=== PATIENT | female | born 1945 | race Hispanic/Latino ===

== ENCOUNTER → 2018-01-27 | Outpatient (CLI) | payer MEDICARE ==
[~2018-01-27] MED LIST: AMLODIPINE BESYL5 MG PO; FERROUS SULFAT325 MG PO; GLIPIZIDE ER5 MG PO; LASIX40 MG PO; SODIUM BICARBO650 MG PO
--- NOTE | 2018-01-27 15:34 | Diagnostic Imaging Report ---
PROCEDURE: CT CHEST WITHOUT CONTRAST CT scan of the chest WITHOUT intravenous contrast, using standard protocol. TECHNIQUE: The chest was scanned utilizing a multidetector helical scanner from the apex to the level of the adrenal glands. No IV contrast was administered per physician's request. Coronal and sagittal multiplanar reformations were obtained. COMPARISON: [facility], DX, CHEST SINGLE (PORTABLE), 01/09/2016, 21:19. INDICATIONS: PULMONARY NODULE FINDINGS: Lines/tubes: Right IJ dialysis catheter with distal tip in the right atrium. Lungs and Airways: Focal areas of subpleural reticulation and mild coarsening of the interstitium/focal ground glass opacities in bilateral upper lobes (for example, series 3, images 29, 27, 45), with mild traction bronchiectasis in the right upper lobe (for example series 3, image 45). Similar findings are noted in the posterior lower lobes bilaterally, right greater than left (for example, series 3, images 68 and 55). 0.8 x 0.5 x 0.7 cm solid noncalcified nodule in the right middle lobe (series 3, image 53 and sagittal image 31). No other pulmonary nodules. No masses or consolidation. Airways are clear, without endobronchial lesions. Pleura: No effusion, or pneumothorax. Heart and mediastinum: Thyroid is unremarkable. Heart size is normal. Trace pericardial fluid. Extensive atherosclerotic calcification of the coronary arteries and to a lesser degree thoracic aorta and aortic valve. The aorta is non-aneurysmal. The main pulmonary artery measures 3.0 cm. Lymph nodes: No mediastinal, hilar or axillary adenopathy. Mildly prominent right lower paratracheal lymph node (series 2, image 41 and coronal image 49), with internal punctate hyperdensity, likely representing partial calcification. Abdomen: Limited views of the upper abdomen show no abnormality within the visualized liver, spleen, pancreas, or kidneys. The adrenal glands are unremarkable. Atherosclerotic calcification of the aorta and aortic branches. Bones: No aggressive lytic lesion. Multilevel degenerative disc changes in the thoracic spine. Soft tissues are unremarkable. IMPRESSION: 1. 0.8 cm solid noncalcified nodule in the right middle lobe. Recommend followup noncontrast low dose nodule CT chest in 3 months to document stability, per Fleischner Society 2017 guidelines. 2. Findings in bilateral lungs likely represent mild fibrotic changes. Tommy Pratt M.D. Dictated by: Tommy Pratt M.D. on 01/27/2018 at 15:38 Electronically approved by: Tommy Pratt M.D. on 01/27/2018 at 15:38
== END ==
LOC: CT 11:16
PROVIDERS: ATTEND Family Medicine
DX: R91.1 Solitary pulmonary nodule (principal)
CPT/HCPCS: 71250

== ENCOUNTER → 2018-05-05 | Outpatient (CLI) | payer MEDICARE ==
[~2018-05-05] MED LIST changes: +METOPROLOL TART25 MG PO
--- NOTE | 2018-05-05 09:38 | Diagnostic Imaging Report ---
PROCEDURE: CT CHEST WITHOUT CONTRAST CT scan of the chest WITHOUT intravenous contrast, using standard protocol. TECHNIQUE: The chest was scanned utilizing a multidetector helical scanner from the apex to the level of the adrenal glands. No IV contrast was administered per protocol. Coronal and sagittal multiplanar reformations were obtained. COMPARISON: CT Chest 01/27/2018. INDICATIONS: nodule FINDINGS: Lines/tubes: Right IJ dialysis catheter with distal tip in the right atrium. Lungs and Airways: Focal areas of subpleural reticulation and mild coarsening of the interstitium/focal ground glass opacities in bilateral upper lobes and lower lobes are again noted. There is a 0.8 x 0.6 x 0.8 cm (AP x TV x SI) nodule in the right middle lobe, unchanged in size by my measurement. No new or enlarging pulmonary nodules. No masses or consolidation. The central airways are patent. Pleura: No effusion, or pneumothorax. Heart and mediastinum: Thyroid is unremarkable. Heart size is normal. Extensive atherosclerotic calcification of the coronary arteries and aorta. Mitral annular calcifications. Lymph nodes: No mediastinal, hilar or axillary adenopathy. Mildly prominent right lower paratracheal lymph node, with internal punctate hyperdensity, likely representing partial calcification. Abdomen: Limited views of the upper abdomen show no abnormality within the visualized liver, spleen, pancreas, or kidneys. The adrenal glands are unremarkable. Atherosclerotic calcification of the aorta and aortic branches. Bones: No acute bony findings. Multilevel degenerative disc changes in the thoracic spine. IMPRESSION: Stable appearance of 8 mm solid noncalcified nodule in the right middle lobe. Recommend follow-up noncontrast low dose nodule CT chest in 6 months to assess for stability. Findings in bilateral lungs likely represent mild fibrotic changes. Dictated by: ELIZABETH GRANT M.D. on 05/05/2018 at 9:47 Electronically approved by: ELIZABETH GRANT M.D. on 05/05/2018 at 9:47
== END ==
LOC: CT 08:29
PROVIDERS: ATTEND Internal Medicine
DX: R91.1 Solitary pulmonary nodule (principal)
CPT/HCPCS: 71250

== ENCOUNTER → 2018-05-19 | Day surgery (SDC) | payer MEDICARE ==
[2018-05-11 11:56] LABS: BASOPHILS % 0.5 % (0.0-1.0); EOSINOPHILS # (AUTO) 0.2 (0.0-0.4); EOSINOPHILS % 1.8 % (0.0-6.0); HEMATOCRIT 35.7 % (34.2-44.1); HEMOGLOBIN 11.5 g/dL (12.0-16.0); LYMPHOCYTES # (AUTO) 1.4 (1.0-3.2); LYMPHOCYTES % 16.7 % (18.0-39.1); MEAN CORPUSCULAR HGB CONC 32.2 g/dL (31-35); MEAN CORPUSCULAR VOLUME 96.2 fL (81-99); MONOCYTES # (AUTO) 0.4 (0.2-0.8); MONOCYTES % 4.3 % (4.4-11.3); NEUTROPHILS # (AUTO) 6.3 (2.1-6.9); NEUTROPHILS % 76.3 % (38.7-80.0); RED BLOOD COUNT 3.71 x10e6/uL (3.6-5.1); RED CELL DISTRIBUTION WIDTH 14.4 % (11.7-14.4)
[2018-05-11 12:02] LABS: PLATELET COUNT 44 x10e3/uL (140-360)
[2018-05-11 12:06] LABS: ANION GAP 12.1 mmol/L (8-16); CALCIUM 8.9 mg/dL (8.4-10.2); CREATININE, SERUM 2.38 mg/dL (0.57-1.11); POTASSIUM 3.1 mmol/L (3.5-5.1)
[~2018-05-19] MED LIST changes: +CHONDR SU A NA/HYALUR SOD 1 EACH KIT IO ONE; +CYCLOPENTOLATE HCL 2% OPTH SOLN 2 ML BTL OP ONE; +EPINEPHRINE HCL INJ 1 MG/ML AMP ONE; +FAMOTIDINE 20 MG/2 ML VIAL IV ONE; +FENTANYL CITRATE/PF 100MCG/2 ML INJ ONE; +GATIFLOXACIN(OPTH) 5 ML LIQD ONE; +LIDOCAINE 2% /EPINEPHRINE 20 ML SDV INJ ONE; +LIDOCAINE HCL-PF 4% 40 MG/1 ML 5ML AMP ONE; +PHENYLEPHRINE HCL 2 ML DROPS ONE; +PILOCARPINE HCL(OPTH) 15 ML LIQD ONE; +POVIDONE IODINE 5% (OPTH) 30 ML BTL ONE; +PROPOFOL IV EMULSION 10 MG/ML 20 ML VIAL ONE; +SODIUM CHLORIDE 0.9% 250ML 250 ML ONE; +TOBRAMYCIN/DEXAMETHASONE(OPTH) 3.5 GM TUBE ONE
--- OUTSIDE RECORDS SUMMARY | 2018-05-19 05:45 | XMS REPORT ---
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 Allergies, Adverse Reactions, Alerts Allergy Name Allergy Type Status Severity Reaction(s) Onset Date Inactive Date Treating Clinician Comments Penicillins DA Active SV 2017-11-01 00:00:00 Medications This patient has no known medications. Results Test Description Test Time Test Comments Text Results Atomic Results Result Comments CT CHEST WO 2018-05-05 09:47:00 [place] [address] Patient Name: JUAN MANRIQUEZ MR #: [id number] : 1945 Age/Sex: 73/F Req #: [id number] Adm Physician: Ordered by: FRANCHESKA HSETER MD Report #: [id number] Location: CT Room/Bed: Procedure: [id number] CT/CT CHEST WO Exam Date: 05/05/18 Exam Time: 0850 REPORT STATUS: Signed PROCEDURE: CT CHEST WITHOUT CONTRAST CT scan of the chest WITHOUT intravenous contrast, using standard protocol. TECHNIQUE: The chest was scanned utilizing a multidetector helical scanner from the apex to the level of the adrenal glands. No IV contrast was administered per protocol. Coronal and sagittal multiplanar reformations were obtained. COMPARISON: CT Chest 01/27/2018. INDICATIONS: nodule FINDINGS: Lines/tubes: Right IJ dialysis catheter with distal tip in the right atrium. Lungs and Airways: Focal areas of subpleural reticulation and mild coarsening of the interstitium/focal ground glass opacities in bilateral upper lobes and lower lobes are again noted. There is a 0.8 x 0.6 x 0.8 cm (AP x TV x SI) nodule in the right middle lobe, unchanged in size by my measurement. No new or enlarging pulmonary nodules. No masses or consolidation. The central airways are patent. Pleura: No effusion, or pneumothorax. Heart and mediastinum: Thyroid is unremarkable. Heart size is normal. Extensive atherosclerotic calcification of the coronary arteries and aorta. Mitral annular calcifications. Lymph nodes: No mediastinal, hilar or axillary adenopathy. Mildly prominent right lower paratracheal lymph node, with internal punctate hyperdensity, likely representing partial calcification. Abdomen: Limited views of the upper abdomen show no abnormality within the visualized liver, spleen, pancreas, or kidneys. The adrenal glands are unremarkable. Atherosclerotic calcification of the aorta and aortic branches. Bones: No acute bony findings. Multilevel degenerative disc changes in the thoracic spine. IMPRESSION: Stable appearance of 8 mm solid noncalcified nodule in the right middle lobe. Recommend follow-up noncontrast low dose nodule CT chest in 6 months to assess for stability. Findings in bilateral lungs likely represent mild fibrotic changes. Dictated by: ELIZABETH GRANT M.D. on 05/05/2018 at 9:47 Electronically approved by: ELIZABETH GRANT M.D. on 05/05/2018 at 9:47 Dictated By: ELIZABETH GRANT MD 6 Transcribed By: LISS on 05/05/18946 COPY TO: FRANCHESKA HESTER MD CT CHEST WO 2018-01-27 15:38:00 [facility] [address], [place] [address] Patient Name: JUAN MANRIQUEZ MR #: [id number] : 1945 Age/Sex: 72/F Req #: [id number] Adm Physician: Ordered by: LEONA COLINDRES MD Report #: [id number] Location: CT Room/Bed: Procedure: [id number] CT/CT CHEST WO Exam Date: 01/27/18 Exam Time: 1150 REPORT STATUS: Signed PROCEDURE: CT CHEST WITHOUT CONTRAST CT scan of the chest WITHOUT intravenous contrast, using standard protocol. TECHNIQUE: The chest was scanned utilizing a multidetector helical scanner from the apex to the level of the adrenal glands. No IV contrast was administered per physician's request. Coronal and sagittal multiplanar reformations were obtained. COMPARISON: [facility], , CHEST SINGLE (PORTABLE), 01/09/2016, 21:19. INDICATIONS: PULMONARY NODULE FINDINGS: Lines/tubes: Right IJ dialysis catheter with distal tip in the right atrium. Lungs and Airways: Focal areas of subpleural reticulation and mild coarsening of the interstitium/focal ground glass opacities in bilateral upper lobes (for example, series 3, images 29, 27, 45), with mild traction bronchiectasis in the right upper lobe (for example series 3, image 45). Similar findings are noted in the posterior lower lobes bilaterally, right greater than left (for example, series 3, images 68 and 55). 0.8 x 0.5 x 0.7 cm solid noncalcified nodule in the right middle lobe (series 3, image 53 and sagittal image 31). No other pulmonary nodules. No masses or consolidation. Airways are clear, without endobronchial lesions. Pleura: No effusion, or pneumothorax. Heart and mediastinum: Thyroid is unremarkable. Heart size is normal. Trace pericardial fluid. Extensive atherosclerotic calcification of the coronary arteries and to a lesser degree thoracic aorta and aortic valve. The aorta is non-aneurysmal. The main pulmonary artery measures 3.0 cm. Lymph nodes: No mediastinal, hilar or axillary adenopathy. Mildly prominent right lower paratracheal lymph node (series 2, image 41 and coronal image 49), with internal punctate hyperdensity, likely representing partial calcification. Abdomen: Limited views of the upper abdomen show no abnormality within the visualized liver, spleen, pancreas, or kidneys. The adrenal glands are unremarkable. Atherosclerotic calcification of the aorta and aortic branches. Bones: No aggressive lytic lesion. Multilevel degenerative disc changes in the thoracic spine. Soft tissues are unremarkable. IMPRESSION: 1. 0.8 cm solid noncalcified nodule in the right middle lobe. Recommend followup noncontrast low dose nodule CT chest in 3 months to document stability, per Fleischner Society 2017 guidelines. 2. Findings in bilateral lungs likely represent mild fibrotic changes. Erica Pratt M.D. Dictated by: Erica Pratt M.D. on 01/27/2018 at 15:38 Electronically approved by: Erica Pratt M.D. on 01/27/2018 at 15:38 Dictated By: ERICA PRATT MD [id number] Transcribed By: LISS on 01/27/18 1538 COPY TO: LEONA COLINDRES MD
[2018-05-19 08:36] LABS: INR 0.94; PROTHROMBIN TIME 13.4 seconds (11.9-14.5)
[2018-05-19 08:38] LABS: PARTIAL THROMBOPLASTIN TIME 30.5 seconds (23.8-35.5)
[2018-05-19 09:50] VITALS: BP 145/65
== END | disposition home or self-care (01) ==
LOC: OR 05:40
PROVIDERS: ATTEND Ophthalmology
DX: H25.12 Age-related nuclear cataract, left eye (principal); E11.22 Type 2 diabetes mellitus with diabetic chronic kidney disease; I13.2 Hypertensive heart and chronic kidney disease with heart failure and with stage 5 chronic kidney disease, or end stage renal disease; N18.6 End stage renal disease; I50.32 Chronic diastolic (congestive) heart failure; Z99.2 Dependence on renal dialysis; I48.91 Unspecified atrial fibrillation; I45.10 Unspecified right bundle-branch block; R07.2 Precordial pain; Z01.810 Encounter for preprocedural cardiovascular examination; Z01.812 Encounter for preprocedural laboratory examination; Z98.41 Cataract extraction status, right eye; Z96.1 Presence of intraocular lens; Z88.0 Allergy status to penicillin
CPT/HCPCS: 36415 ×2; 66984; 80048; 82948; 84132; 85025; 85610; 85730; 93005; J0171; J2001; J2704; J7050; V2632

== ENCOUNTER → 2018-08-01 | Outpatient (CLI) | payer MEDICARE ==
[~2018-08-01] MED LIST changes: -CHONDR SU A NA/HYALUR SOD 1 EACH KIT IO ONE; -CYCLOPENTOLATE HCL 2% OPTH SOLN 2 ML BTL OP ONE; -EPINEPHRINE HCL INJ 1 MG/ML AMP ONE; -FAMOTIDINE 20 MG/2 ML VIAL IV ONE; -FENTANYL CITRATE/PF 100MCG/2 ML INJ ONE; -GATIFLOXACIN(OPTH) 5 ML LIQD ONE; -LIDOCAINE 2% /EPINEPHRINE 20 ML SDV INJ ONE; -LIDOCAINE HCL-PF 4% 40 MG/1 ML 5ML AMP ONE; -PHENYLEPHRINE HCL 2 ML DROPS ONE; -PILOCARPINE HCL(OPTH) 15 ML LIQD ONE; -POVIDONE IODINE 5% (OPTH) 30 ML BTL ONE; -PROPOFOL IV EMULSION 10 MG/ML 20 ML VIAL ONE; -SODIUM CHLORIDE 0.9% 250ML 250 ML ONE; -TOBRAMYCIN/DEXAMETHASONE(OPTH) 3.5 GM TUBE ONE
--- NOTE | 2018-08-01 17:42 | Diagnostic Imaging Report ---
Exam: Paranasal sinuses, 3 views. History: Acute maxillary sinusitis Comparison: None. Findings: There is normal bone mineralization. Hypoplastic frontal sinuses. Maxillary, sphenoid and ethmoid sinuses are aerated. No acute, displaced fracture or dislocation. Impacted molars. Impression: 1. Hypoplastic frontal sinuses. Other sinuses are aerated. Maxillofacial CT is recommended if there is clinical concern for sinusitis. Signed by: Dr. Tommy Pratt M.D. on 08/01/2018 5:39 PM
== END ==
LOC: RAD 15:50
PROVIDERS: ATTEND Family Medicine
DX: J01.00 Acute maxillary sinusitis, unspecified (principal)
CPT/HCPCS: 70220

== ENCOUNTER → 2019-05-15 | Outpatient (CLI) | payer MEDICARE ==
[~2019-05-15] MED LIST changes: +ASPIRIN81 MG; +CLONIDINE1 EAC1
--- NOTE | 2019-05-15 12:47 | Diagnostic Imaging Report ---
CT THORACIC SPINE WO HISTORY: Thoracic spine pain COMPARISON: Chest radiographs 11/18/2018 TECHNIQUE: Axial CT images of the thoracic spine were obtained without intravenous contrast. Coronal/sagittal reformations were created. One or more of the following dose reduction techniques were used: Automated exposure control, adjustment of the mA and/or kV according to patient size, and/or utilization of iterative reconstruction technique. FINDINGS: Mild bone demineralization limits evaluation. Thoracic kyphosis is preserved. There is no significant scoliosis or subluxation. Multilevel spondylotic changes are advanced at T7-T8. Mild endplate erosion and sclerosis are seen at T7-T8. Minimal grade 1 anterolisthesis of T7 on T8 is present. There is no associated paravertebral fat stranding/soft tissue density at T7-T8. Otherwise, no definite acute fracture or compression deformity is seen. No gross spinal canal mass is seen. The paravertebral and paraspinal soft tissues are unremarkable. There is no gross canal or foraminal stenosis. Right IJ dual-lumen central line terminates near the right atrium. Diffuse atherosclerotic calcifications are present. The left atrium is enlarged. Diffuse groundglass pulmonary opacities may be due to pulmonary edema. Associated small bilateral pleural effusions are seen, right greater than left IMPRESSION: 1. Nonspecific advanced spondylotic changes at T7-T8 with mild endplate erosion and sclerosis. Early osteomyelitis-discitis could have this appearance. 2. Otherwise, no acute osseous abnormalities. 3. Underlying multilevel spondylosis without gross canal or foraminal stenosis. Signed by: Dr. Thomas Smith M.D. on 05/15/2019 12:44 PM
== END ==
LOC: CT 11:04
PROVIDERS: ATTEND Family Medicine
DX: M54.6 Pain in thoracic spine (principal)
CPT/HCPCS: 72128

== ENCOUNTER 2020-04-22 11:03 | Observation (INO) | payer MEDICARE ==
[~2020-04-22] VITALS: Ht 162.6 cm; Wt 58.5 kg
[2020-04-22] MEDS ORDERED: ASPIRIN 81 MG CHEW TAB PO ONE ×2 (11:30→13:30)
--- NOTE | 2020-04-22 11:40 | Diagnostic Imaging Report ---
EXAMINATION: CHEST SINGLE (PORTABLE) INDICATION: Chest pain. COMPARISON: Chest radiograph 02/07/2020. FINDINGS: TUBES and LINES: Right IJ tunneled hemodialysis catheter terminates in the right atrium. LUNGS: Lungs are moderately inflated. Mild bilateral perihilar and interstitial opacities. No evidence of lobar pneumonia. PLEURA: No pleural effusion or pneumothorax. HEART AND MEDIASTINUM: The cardiomediastinal silhouette is mildly enlarged. There are atherosclerotic calcifications within the aorta. BONES AND SOFT TISSUES: No acute osseous abnormality. Diffuse osteopenia. UPPER ABDOMEN: No free air under the diaphragm. IMPRESSION: Bilateral interstitial opacities, likely pulmonary interstitial edema. No evidence of lobar pneumonia. Signed by: Dr. Carline Rodriguez MD on 04/22/2020 11:36 AM
[2020-04-22 11:44] LABS: BASOPHILS # (AUTO) 0.1 (0.0-0.1); BASOPHILS % 1.1 % (0.0-1.0); EOSINOPHILS # (AUTO) 0.2 (0.0-0.4); EOSINOPHILS % 2.7 % (0.0-6.0); HEMATOCRIT 39.1 % (34.2-44.1); HEMOGLOBIN 12.5 g/dL (12.0-16.0); LYMPHOCYTES # (AUTO) 1.1 (1.0-3.2); LYMPHOCYTES % 16.6 % (18.0-39.1); MONOCYTES # (AUTO) 0.3 (0.2-0.8); MONOCYTES % 4.4 % (4.4-11.3); NEUTROPHILS # (AUTO) 4.9 (2.1-6.9); NEUTROPHILS % 74.9 % (38.7-80.0); RED BLOOD COUNT 3.91 x10e6/uL (3.6-5.1); RED CELL DISTRIBUTION WIDTH 15.1 % (11.7-14.4)
--- NOTE | 2020-04-22 11:50 | NUR ---
PT STATES SHE HAS DIALYSIS M/W/F. PT STATES THEY TOOK OFF 2.1L DURING DIALYSIS. PT NOTES THAT WHENEVER HER DIALYSIS TREATMENT TAKES OFF ALOT OF FLUID, SHE DEVELOPS CHEST PAIN.
[2020-04-22 11:53] LABS: PLATELET COUNT 36 x10e3/uL (140-360)
--- NOTE | 2020-04-22 11:53 | NUR ---
Received call from lab with notification that pt's platelets are 35, notified Irais ROY.
--- OUTSIDE RECORDS SUMMARY | 2020-04-22 11:57 | XMS REPORT | Continuity of Care Document ---
Author Author [facility] t Organization [facility] Address [address] [place] [address] Phone Unavailable Care Team Providers Care Window Decorator Name Role Phone MD Tor COLINDRES PCP MARGY SAHNI Attphys Unavailable Tor MOSCOSO Attphys Unavailable Tor COLINDRES Attphys Unavailable BOOKER WALDEN Attphys Unavailable MIRFRANCHESKA MCKINLEY Attphys Unavailable Payers Payer Name Policy Type Policy Number Effective Date Expiration Date Tor pepper [employer] Medicare Complete [id number] 2015 00:00:00 [facility] Problems Condition Name Condition Details Condition Category Status Onset Date Resolution Date Last Treatment Date Treating Clinician Comments Source CHF (congestive heart failure) Problem Active 2016-01-10 00:00:00 [facility] Dxbzq-on-ommtghi renal failure Problem Active 2016-01-10 00:00:00 [facility] Hyperkalemia Problem Active 2016-01-10 00:00:00 [facility] Hyperkalemia Problem Active 2014-09-15 00:00:00 [facility] Anemia Problem Active 2014-09-15 00:00:00 [facility] End-stage renal disease Problem Active 2014-09-15 00:00:00 [facility] Chest wall pain following surgery Problem Active [facility] Allergies, Adverse Reactions, Alerts Allergy Name Allergy Type Status Severity Reaction(s) Onset Date Inacti ve Date Treating Clinician Comments Source Penicillin Allergy to substance Active 2020-02-07 00:00:00 [facility] Penicillins DA Active 2019-09-09 00:00:00 [facility] Penicillins DA Active 2018-11-18 00:00:00 [facility] Penicillins DA Active 2017-11-01 00:00:00 [facility] Social History Social Habit Start Date Stop Date Quantity Comments Source Sex Assigned At 1945 00:00:00 1945 00:00:00 Female [facility] Medications Ordered Medication Name Filled Medication Name Start Date Stop Da te Current Medication? Ordering Clinician Indication Dosage Frequency Signature (SIG) Comments Components Source Amlodipine Besylate Amlodipine Besylate Yes 10 Daily [facility] Aspirin Aspirin Yes [facility] Clonidine Clonidine Yes .1 [facility] Metoprolol Tartrate Metoprolol Tartrate Yes 25 As Needed [facility] Furosemide (Lasix) 40 Mg TABLET Furosemide (Lasix) 40 Mg TABLET 2018-11-21 00:00:00 No 40 As Needed [facility] Sodium Bicarbonate Sodium Bicarbonate 2018-11-21 00:00:00 No 650 Daily [facility] Glipizide (Glipizide Er) 5 Mg TAB.ER.24 Glipizide (Glipizide Er) 5 Mg TAB.ER.24 2018-05-11 00:00:00 No 5 Daily [facility] Ferrous Sulfate Ferrous Sulfate 2017-05-19 00:00:00 No 325 Daily [facility] Sodium Bicarbonate Sodium Bicarbonate 2017-05-19 00:00:00 No 1 Daily [facility] Vital Signs Vital Name Observation Time Observation Value Comments Source Body Temperature 2020-02-07 19:31:00 98.4 [degF] [facility] Weight 2020-02-07 16:08:00 163 [lb_av] [facility] BMI (Body Mass Index) 2020-02-07 16:08:00 28.0 kg/m2 [facility] Procedures Procedure Date / Time Performed Performing Clinician Sourc e Computed tomography of thoracic spine without contrast 2019-04-19 8 00:00:00 [facility] Plan of Care Planned Activity Planned Date Details Comments Source Instructions Chest Pain - Chest Wall [facility] Encounters Start Date/Time End Date/Time Encounter Type Admission Type [facility] Care Department Encounter ID Source 2020-02-07 16:20:00 2020-02-07 19:36:00 Departed Emergency Room GEOVANNA MOSCOSO [facility] [id number] [facility] I [facility] 2019-05-15 11:04:00 2019-05-15 11:04:00 Registered Clinic 3 LEONA COLINDRES [facility] [id number] [facility] Results Test Description Test Time Test Comments Results Result Comments Source CHEST SINGLE (PORTABLE) 2020-04-22 11:33:00 [facility] [address] [place], [place] [address] Patient Name: JUAN MANRIQUEZ MR #: [id number] : 1945 Age/Sex: 75/F Req #: [id number] Adm Physician: Ordered by: MARGY SAHNI MD Report #: [id number] Location: ER Room/Bed: Procedure: [id number] DX/CHEST SINGLE (PORTABLE) Exam Date: 04/22/20 Exam Time: 1120 REPORT STATUS: Signed EXAMINATION: CHEST SINGLE (PORTABLE) INDICATION: Chest pain. COMPARISON: Chest radiograph 02/07/2020. FINDINGS: TUBES and LINES: Right IJ tunneled hemodialysis catheter terminates in the right atrium. LUNGS: Lungs are moderately inflated. Mild bilateral perihilar and interstitial opacities. No evidence of lobar pneumonia. PLEURA: No pleural effusion or pneumothorax. HEART AND MEDIASTINUM: The cardiomediastinal silhouette is mildly enlarged. There are atherosclerotic calcifications within the aorta. BONES AND SOFT TISSUES: No acute osseous abnormality. Diffuse osteopenia. UPPER ABDOMEN: No free air under the diaphragm. IMPRESSION: Bilateral interstitial opacities, likely pulmonary interstitial edema. No evidence of lobar pneumonia. Signed by: Dr. Elizabeth Grant MD on 04/22/2020 11:36 AM Dictated By: ELIZABETH GRANT MD 1136 Transcribed By: AYDE on 04/22/20 1136 COPY TO: MARGY SAHNI MD CHEST SINGLE (PORTABLE) 2020-02-07 17:04:00 [place] [address] Patient Name: JUAN MANRIQUEZ MR #: [id number] : 1945 Age/Sex: 75/F Req #: [id number] Adm Physician: Ordered by: GEOVANNA MOSCOSO DO Report #: [id number] Location: ER Room/Bed: Procedure: [id number] DX/CHEST SINGLE (PORTABLE) Exam Date: 02/07/20 Exam Time: 1650 REPORT STATUS: Signed EXAMINATION: CHEST SINGLE (PORTABLE) INDICATION: Y pain over port insertion site [id number] COMPARISON: 11/18/2018 FINDINGS: TUBES and LINES: Right IJ tunneled hemodialysis catheter terminates over the right l ower heart border. A new 3.5 cm linear density is seen over the right chest in the region of the right IJ tunneled hemodialysis catheter. This may be external to the patient. LUNGS: Lungs are not well inflated. There is no evidence of pneumonia or pulmonary edema. PLEURA: No pleural effusion or pneumothorax. HEART AND MEDIASTINUM: The cardiomediastinal silhouette is unremarkable. There are atherosclerotic calcifications within the aorta. BONES AND SOFT TISSUES: No acute osseous abnormality. UPPER ABDOMEN: No free air under the diaphragm. IMPRESSION: Right IJ tunneled hemodialysis catheter terminates over the right lower heart border. A new 3.5 cm linear density is seen over the right chest in the region of the right IJ tunneled hemodialysis catheter. This may be external to the patient. Signed by: Dr. Zeke Gould M.D. on 02/07/2020 5:07 PM Dictated By: ZEKE GOULD MD, MD 06 Transcribed By: AYDE on 02/07/201706 COPY TO: GEOVANNA MOSCOSO DO - XR KNEE 3 V 2020-01-30 14:15:00 FAX: Derek Cifuentse MD [phone] [place]: St: REG -- Name: JUAN MANRIQUEZ [facility] [place] : 1945 Age/S: 75/F [address] Unit #: [id number] [facility] [place] [place] [address] Phys: Derek Dias MD Acct: [id number] Dis Date: Status: REG RCR PHONE #: [phone] Exam Date: 01/30/2020 1340 FAX #: Reason: DISTAL FEMUR FX EXAMS: CPT CODE: [id number] XR KNEE 3 V LT 73847 CLINICAL HISTORY: DISTAL FEMUR FX TECHNIQUE: Tunnel and standing AP views of both knees with lateral view of the left knee COMPARISON: None FINDINGS/ IMPRESSION: There is a comminuted fracture of the distal femoral shaft that demonstrates signs of interval healing since the previous examination as evidenced by sclerotic changes in the fracture along with bony callus. The alignment of the bone fragments is unchanged from the previous exam. There is narrowing of the knee joint spaces bilaterally that is more severe on the left side. The soft tissues or on the left knee are swollen and extensive vascular calcifications are present bilaterally. Location: [facility] at 1415 Reported and signed by: Arun Hand MD CC: Derek Dias MD Technologist: Bebe elaine RT(R) Trnscrd Date/Time/By: 01/30/2020 (1414) : By: [email or web address] Orig Print D/T: S: 01/30/2020 (2230) PAGE 1 Signed Report - XR ANKLE 3 + V LT 2020-01-30 14:12:00 FAX: Derek Cifuentes MD [phone] [place]: St: REG -- Name: JUAN MANRIQUEZ [facility] [place] : 1945 Age/S: 75/F [address] Unit #: [id number] [facility] [place] [address] Phys: Derek Dias MD Acct: [id number] Dis Date: Status: REG RCR PHONE #: [phone] Exam Date: 01/30/2020 1338 FAX #: Reason: DISTAL FEMUR FX EXAMS: CPT CODE: [id number] XR ANKLE 3 + V LT [address] CLINICAL HISTORY: DISTAL FEMUR FX TECHNIQUE: AP, oblique, and lateral views of the left ankle COMPARISON: Left ankle radiographs September 09, 2019 FINDINGS/ IMPRESSION: No acute fracture or dislocation. Bony trabecular pattern is unremarkable. No cortical destruction or periosteal reaction. Ankle mortise is appropriately aligned. Small plantar enthesophyte is present. Atherosclerotic calcifications are present in the soft tissues around the ankle. Location: [facility] at 1412 Reported and signed by: Arun Hand MD CC: Derek Dias MD Technologist: Bebe Beasley RT(R) Trnscrd Date/Time/By: 01/30/2020 (1411) : By: [email or web address] Orig Print D/T: S: 01/30/2020 (1) PAGE 1 Signed Report - XR FEMUR MIN 2 VWS LT 2019-12-19 15:48:00 FAX : Derek Cifuentes MD [phone] [place]: St: REG -- Name: JUAN MANRIQUEZ [facility] [place] : 1945 Age/S: 74/F [address] Unit #: [id number] Loc: [place] [address] Phys: Derek Dias MD Acct: [id number] Dis Date: Status: REG RCR PHONE #: [phone] Exam Date: 12/19/2019 1528 FAX #: Reason: PAIN EXAMS: CPT CODE: [id number] XR FEMUR MIN 2 [place] [address] CLINICAL HISTORY: PAIN; left distal femoral fracture TECHNIQUE: AP and lateral views of the left femur COMPARISON: 11/30/19 IMPRESSION: Progressive healing of comminuted distal femur fracture with indistinct fracture planes, increased sclerosis, and bony callus formation. Left proximal femur is intact. Mild degenerative changes of the left hip and knee joints. Atherosclerotic vascular calcification. Lower thigh and knee soft tissue swelling. LOCATION: [facility] at 1548 Reported and signed by: Chio Chavez D.O. CC: Derek Dias MD Technologist: Dinorah Olivo [facility] Date/Time/By: 12/19/2019 (7468) : By: [email or web address] Orig Print D/T: S: 12/19/2019 (0016) PAGE 1 Signed Report - XR FEMUR MIN 2 VWS LT 2019-11-30 12:32:00 FAX : Derek Cifuentes MD [phone] [place]: St: DIS -- Name: JUAN MANRIQUEZON [facility] [place] : 1945 Age/S: 74/F [address] Unit #: [id number] Loc: [place] [address] Phys: Derek Dias MD Acct: [id number] Dis Date: Status: DIS RCR PHONE #: [phone] Exam Date: 11/30/2019 1205 FAX #: Reason: LEFT DISTAL FEMORAL FX EXAMS: CPT CODE: [id number] XR [place]EMUR MIN 2 [place] [address] CLINICAL HISTORY: LEFT DISTAL FEMORAL FX TECHNIQUE: 2 views of the left femur COMPARISON: Left femur radiographs September 26, 2019 FINDINGS/ IMPRESSION: There is a comminuted fracture of the distal femoral shaft with mild posterior and lateral displacement. Alignment of the bone appears grossly similar to the prior examination. However there has been interval development of callus at the fracture site indicating ongoing healing. The visualized tibia and fibula and patella appear to be within normal limits. Location: [facility] at 1232 Reported and signed by: Arun Hand MD CC: Derek Dias MD Technologist: Bebe Beasley RT(R) Trnscrd Date/Time/By: 11/30/2019 (4418) : By: [email or web address] Orig Print D/T: S: 11/30/2019 (0536) PAGE 1 Signed Report - XR FEMUR MIN 2 VWS LT 2019-09-26 14:22:00 FAX : Derek Cifuentes MD [phone] [place]: St: REG -- Name: JUAN MANRIQUEZ [facility] [place] : 1945 Age/S: 74/F [address] Unit #: [id number] Loc: [place] [address] Phys: Derek Dias MD Acct: [id number] Dis Date: Status: REG RCR PHONE #: [phone] Exam Date: 09/26/2019 1335 FAX #: Reason: pain EXAMS: CPT CODE: [id number] XR FEMUR MIN [address] [place] [address] CLINICAL HISTORY: pain TECHNIQUE: 2 views of the left femur COMPARISON: None FINDINGS/ IMPRESSION: Comminuted fracture of the distal femoral shaft with extension into the femoral condyles and the knee joint space is grossly unchanged in alignment from the prior exam. Extensive vascular calcifications are seen in the left thigh. Location: [facility] at 1422 Reported and signed by: Arun Hand MD CC: Derek Dias MD Technologist: Param Malave RT(R) Trnscrd Date/Time/By: 09/26/2019 (4594) : By: [email or web address] Orig Print D/T: S: 09/27/2019 (0862) PAGE 1 Signed Report RENAL FUNCTION PANEL 2019-09-18 10:32:00 Test Item SODIUM (test code = NA) 136 mmol/L 136-145 N POTASSIUM (test code = K) 4.1 mmol/L 3.5-5.1 N CHLORIDE (test code = CL) 101.0 mmol/L 98-107 N CARBON DIOXIDE (test code = CO2) 27.0 mmol/L 21-32 N ANION GAP (test code = GAP) 12.1 10-20 N GLUCOSE (test code = GLU) 150 mg/dL 74-106 H BLOOD UREA NITROGEN (test code = BUN) 63 mg/dL 7-18 H CREATININE (test code = CREAT) 7.70 mg/dL 0.55-1.02 H Note change in reference range due to change in reagent. ALBUMIN (test code = ALB) 2.6 g/dL 3.4-5.0 L CALCIUM (test code = CA) 8.5 mg/dL 8.5-10.1 N PHOSPHORUS (test code = PHOS) 2.9 mg/dL 2.5-4.9 N CBC W/AUTO [id number] 08:33:00* Test Item Value Reference Range Interpretation Comments WHITE BLOOD CELL (test code = WBC) 9.1 K/mm3 4.5-12.5 N RED BLOOD CELL (test code = RBC) 3.09 mill/mm3 3.7-5.2 L HEMOGLOBIN (test code = HGB) 9.1 gram/dL 11.5-15.5 L HEMATOCRIT (test code = HCT) 28.1 % 36.0-46.0 L MEAN CELL VOLUME (test code = MCV) 90.9 fL 80-98 N MEAN CELL HGB (test code = MCH) 29.4 picogram 27.0-33.0 N MEAN CELL HGB CONCETRATION (test code = MCHC) 32.4 gram/dL 33.0-36. 0 L RED CELL DISTRIBUTION WIDTH (test code = RDW) 16.0 % 11.6-16. 2 N RED CELL DISTRIBUTION WIDTH SD (test code = RDW-SD) 53.1 fL 37 .0-51.0 H PLATELET COUNT (test code = PLT) 77 K/mm3 150-450 L MEAN PLATELET VOLUME (test code = MPV) 13.6 fL 6.7-11.0 H NEUTROPHIL % (test code = NT%) 76.8 % 39.0-69.0 H IMMATURE GRANULOCYTE % (test code = IG%) 0.7 % 0.0-5.0 N LYMPHOCYTE % (test code = LY%) 12.0 % 25.0-55.0 L MONOCYTE % (test code = MO%) 6.4 % 0.0-10.0 N EOSINOPHIL % (test code = EO%) 3.6 % 0.0-5.0 N BASOPHIL % (test code = BA%) 0.5 % 0.0-1.0 N NUCLEATED RBC % (test code = NRBC%) 0.0 % 0-0 N NEUTROPHIL # (test code = NT#) 7.00 K/mm3 1.8-7.7 N IMMATURE GRANULOCYTE # (test code = IG#) 0.06 x10 3/uL 0-0.03 H LYMPHOCYTE # (test code = LY#) 1.09 K/mm3 1.0-5.0 N MONOCYTE # (test code = MO#) 0.58 K/mm3 0-0.8 N EOSINOPHIL # (test code = EO#) 0.33 K/mm3 0.0-0.5 N BASOPHIL # (test code = BA#) 0.05 K/mm3 0.0-0.2 N NUCLEATED RBC # (test code = NRBC#) 0.00 K/mm3 0.0-0.1 N MANUAL DIFF REQUIRED (test code = MDIFF) NO, ONLY SCAN NEEDED DIFFERENTIAL [id number] 08:33:00* Test Item Value Reference Range Interpretation Comments STAIN ACCEPTABILITY (test code = STN ACCEPTABLE) STAIN ACCEPTABLE POLYCHROMASIA (test code = POLC) 1+ ANISOCYTOSIS (test code = ANISO) 1+ PLATELET ESTIMATE (test code = PLTEST) DECREASED PLATELET MORPHOLOGY (test code = PLTMORPH) SIZE VARIABLE CBC W/AUTO [id number] 08:02:00* Test Item Value Reference Range Interpretation Comments WHITE BLOOD CELL (test code = WBC) 9.1 K/mm3 4.5-12.5 N RED BLOOD CELL (test code = RBC) 3.09 mill/mm3 3.7-5.2 L HEMOGLOBIN (test code = HGB) 9.1 gram/dL 11.5-15.5 L HEMATOCRIT (test code = HCT) 28.1 % 36.0-46.0 L MEAN CELL VOLUME (test code = MCV) 90.9 fL 80-98 N MEAN CELL HGB (test code = MCH) 29.4 picogram 27.0-33.0 N MEAN CELL HGB CONCETRATION (test code = MCHC) 32.4 gram/dL 33.0-36. 0 L RED CELL DISTRIBUTION WIDTH (test code = RDW) 16.0 % 11.6-16. 2 N RED CELL DISTRIBUTION WIDTH SD (test code = RDW-SD) 53.1 fL 37 .0-51.0 H PLATELET COUNT (test code = PLT) 77 K/mm3 150-450 L MEAN PLATELET VOLUME (test code = MPV) 13.6 fL 6.7-11.0 H NEUTROPHIL % (test code = NT%) 76.8 % 39.0-69.0 H IMMATURE GRANULOCYTE % (test code = IG%) 0.7 % 0.0-5.0 N LYMPHOCYTE % (test code = LY%) 12.0 % 25.0-55.0 L MONOCYTE % (test code = MO%) 6.4 % 0.0-10.0 N EOSINOPHIL % (test code = EO%) 3.6 % 0.0-5.0 N BASOPHIL % (test code = BA%) 0.5 % 0.0-1.0 N NUCLEATED RBC % (test code = NRBC%) 0.0 % 0-0 N NEUTROPHIL # (test code = NT#) 7.00 K/mm3 1.8-7.7 N IMMATURE GRANULOCYTE # (test code = IG#) 0.06 x10 3/uL 0-0.03 H LYMPHOCYTE # (test code = LY#) 1.09 K/mm3 1.0-5.0 N MONOCYTE # (test code = MO#) 0.58 K/mm3 0-0.8 N EOSINOPHIL # (test code = EO#) 0.33 K/mm3 0.0-0.5 N BASOPHIL # (test code = BA#) 0.05 K/mm3 0.0-0.2 N NUCLEATED RBC # (test code = NRBC#) 0.00 K/mm3 0.0-0.1 N MANUAL DIFF REQUIRED (test code = MDIFF) NO, ONLY SCAN NEEDED DIFFERENTIAL [id number] 08:02:00* Test Item Value Reference Range Interpretation Comments STAIN ACCEPTABILITY (test code = STN ACCEPTABLE) CABOT RINGS (test code = CAB) MORPHOLOGY COMMENT (test code = MOC) PLATELET ESTIMATE (test code = PLTEST) PLATELET MORPHOLOGY (test code = PLTMORPH) CBC W/AUTO [id number] 08:02:00* Test Item Value Reference Range Interpretation Comments WHITE BLOOD CELL (test code = WBC) 9.1 K/mm3 4.5-12.5 N RED BLOOD CELL (test code = RBC) 3.09 mill/mm3 3.7-5.2 L HEMOGLOBIN (test code = HGB) 9.1 gram/dL 11.5-15.5 L HEMATOCRIT (test code = HCT) 28.1 % 36.0-46.0 L MEAN CELL VOLUME (test code = MCV) 90.9 fL 80-98 N MEAN CELL HGB (test code = MCH) 29.4 picogram 27.0-33.0 N MEAN CELL HGB CONCETRATION (test code = MCHC) 32.4 gram/dL 33.0-36. 0 L RED CELL DISTRIBUTION WIDTH (test code = RDW) 16.0 % 11.6-16. 2 N RED CELL DISTRIBUTION WIDTH SD (test code = RDW-SD) 53.1 fL 37 .0-51.0 H PLATELET COUNT (test code = PLT) 77 K/mm3 150-450 L MEAN PLATELET VOLUME (test code = MPV) 13.6 fL 6.7-11.0 H NEUTROPHIL % (test code = NT%) 76.8 % 39.0-69.0 H IMMATURE GRANULOCYTE % (test code = IG%) 0.7 % 0.0-5.0 N LYMPHOCYTE % (test code = LY%) 12.0 % 25.0-55.0 L MONOCYTE % (test code = MO%) 6.4 % 0.0-10.0 N EOSINOPHIL % (test code = EO%) 3.6 % 0.0-5.0 N BASOPHIL % (test code = BA%) 0.5 % 0.0-1.0 N NUCLEATED RBC % (test code = NRBC%) 0.0 % 0-0 N NEUTROPHIL # (test code = NT#) 7.00 K/mm3 1.8-7.7 N IMMATURE GRANULOCYTE # (test code = IG#) 0.06 x10 3/uL 0-0.03 H LYMPHOCYTE # (test code = LY#) 1.09 K/mm3 1.0-5.0 N MONOCYTE # (test code = MO#) 0.58 K/mm3 0-0.8 N EOSINOPHIL # (test code = EO#) 0.33 K/mm3 0.0-0.5 N BASOPHIL # (test code = BA#) 0.05 K/mm3 0.0-0.2 N NUCLEATED RBC # (test code = NRBC#) 0.00 K/mm3 0.0-0.1 N MANUAL DIFF REQUIRED (test code = MDIFF) NO, ONLY SCAN NEEDED DIFFERENTIAL [id number] 08:02:00* Test Item Value Reference Range Interpretation Comments STAIN ACCEPTABILITY (test code = STN ACCEPTABLE) CABOT RINGS (test code = CAB) MORPHOLOGY COMMENT (test code = MOC) PLATELET ESTIMATE (test code = PLTEST) PLATELET MORPHOLOGY (test code = PLTMORPH) CBC W/AUTO [id number] 08:02:00* Test Item Value Reference Range Interpretation Comments WHITE BLOOD CELL (test code = WBC) 9.1 K/mm3 4.5-12.5 N RED BLOOD CELL (test code = RBC) 3.09 mill/mm3 3.7-5.2 L HEMOGLOBIN (test code = HGB) 9.1 gram/dL 11.5-15.5 L HEMATOCRIT (test code = HCT) 28.1 % 36.0-46.0 L MEAN CELL VOLUME (test code = MCV) 90.9 fL 80-98 N MEAN CELL HGB (test code = MCH) 29.4 picogram 27.0-33.0 N MEAN CELL HGB CONCETRATION (test code = MCHC) 32.4 gram/dL 33.0-36. 0 L RED CELL DISTRIBUTION WIDTH (test code = RDW) 16.0 % 11.6-16. 2 N RED CELL DISTRIBUTION WIDTH SD (test code = RDW-SD) 53.1 fL 37 .0-51.0 H PLATELET COUNT (test code = PLT) 77 K/mm3 150-450 L MEAN PLATELET VOLUME (test code = MPV) 13.6 fL 6.7-11.0 H NEUTROPHIL % (test code = NT%) 76.8 % 39.0-69.0 H IMMATURE GRANULOCYTE % (test code = IG%) 0.7 % 0.0-5.0 N LYMPHOCYTE % (test code = LY%) 12.0 % 25.0-55.0 L MONOCYTE % (test code = MO%) 6.4 % 0.0-10.0 N EOSINOPHIL % (test code = EO%) 3.6 % 0.0-5.0 N BASOPHIL % (test code = BA%) 0.5 % 0.0-1.0 N NUCLEATED RBC % (test code = NRBC%) 0.0 % 0-0 N NEUTROPHIL # (test code = NT#) 7.00 K/mm3 1.8-7.7 N IMMATURE GRANULOCYTE # (test code = IG#) 0.06 x10 3/uL 0-0.03 H LYMPHOCYTE # (test code = LY#) 1.09 K/mm3 1.0-5.0 N MONOCYTE # (test code = MO#) 0.58 K/mm3 0-0.8 N EOSINOPHIL # (test code = EO#) 0.33 K/mm3 0.0-0.5 N BASOPHIL # (test code = BA#) 0.05 K/mm3 0.0-0.2 N NUCLEATED RBC # (test code = NRBC#) 0.00 K/mm3 0.0-0.1 N MANUAL DIFF REQUIRED (test code = MDIFF) NO, ONLY SCAN NEEDED DIFFERENTIAL [id number] 08:02:00* Test Item Value Reference Range Interpretation Comments STAIN ACCEPTABILITY (test code = STN ACCEPTABLE) MORPHOLOGY COMMENT (test code = MOC) PLATELET ESTIMATE (test code = PLTEST) PLATELET MORPHOLOGY (test code = PLTMORPH) CBC W/AUTO [id number] 08:02:00* Test Item Value Reference Range Interpretation Comments WHITE BLOOD CELL (test code = WBC) 9.1 K/mm3 4.5-12.5 N RED BLOOD CELL (test code = RBC) 3.09 mill/mm3 3.7-5.2 L HEMOGLOBIN (test code = HGB) 9.1 gram/dL 11.5-15.5 L HEMATOCRIT (test code = HCT) 28.1 % 36.0-46.0 L MEAN CELL VOLUME (test code = MCV) 90.9 fL 80-98 N MEAN CELL HGB (test code = MCH) 29.4 picogram 27.0-33.0 N MEAN CELL HGB CONCETRATION (test code = MCHC) 32.4 gram/dL 33.0-36. 0 L RED CELL DISTRIBUTION WIDTH (test code = RDW) 16.0 % 11.6-16. 2 N RED CELL DISTRIBUTION WIDTH SD (test code = RDW-SD) 53.1 fL 37 .0-51.0 H PLATELET COUNT (test code = PLT) 77 K/mm3 150-450 L MEAN PLATELET VOLUME (test code = MPV) 13.6 fL 6.7-11.0 H NEUTROPHIL % (test code = NT%) 76.8 % 39.0-69.0 H IMMATURE GRANULOCYTE % (test code = IG%) 0.7 % 0.0-5.0 N LYMPHOCYTE % (test code = LY%) 12.0 % 25.0-55.0 L MONOCYTE % (test code = MO%) 6.4 % 0.0-10.0 N EOSINOPHIL % (test code = EO%) 3.6 % 0.0-5.0 N BASOPHIL % (test code = BA%) 0.5 % 0.0-1.0 N NUCLEATED RBC % (test code = NRBC%) 0.0 % 0-0 N NEUTROPHIL # (test code = NT#) 7.00 K/mm3 1.8-7.7 N IMMATURE GRANULOCYTE # (test code = IG#) 0.06 x10 3/uL 0-0.03 H LYMPHOCYTE # (test code = LY#) 1.09 K/mm3 1.0-5.0 N MONOCYTE # (test code = MO#) 0.58 K/mm3 0-0.8 N EOSINOPHIL # (test code = EO#) 0.33 K/mm3 0.0-0.5 N BASOPHIL # (test code = BA#) 0.05 K/mm3 0.0-0.2 N NUCLEATED RBC # (test code = NRBC#) 0.00 K/mm3 0.0-0.1 N MANUAL DIFF REQUIRED (test code = MDIFF) NO, ONLY SCAN NEEDED DIFFERENTIAL [id number] 08:02:00* Test Item Value Reference Range Interpretation Comments STAIN ACCEPTABILITY (test code = STN ACCEPTABLE) CABOT RINGS (test code = CAB) MORPHOLOGY COMMENT (test code = MOC) PLATELET ESTIMATE (test code = PLTEST) PLATELET MORPHOLOGY (test code = PLTMORPH) CBC W/AUTO [id number] 06:30:00* Test Item Value Reference Range Interpretation Comments WHITE BLOOD CELL (test code = WBC) 8.3 K/mm3 4.5-12.5 N RED BLOOD CELL (test code = RBC) 2.87 mill/mm3 3.7-5.2 L HEMOGLOBIN (test code = HGB) 8.3 gram/dL 11.5-15.5 L HEMATOCRIT (test code = HCT) 26.4 % 36.0-46.0 L MEAN CELL VOLUME (test code = MCV) 92.0 fL 80-98 N MEAN CELL HGB (test code = MCH) 28.9 picogram 27.0-33.0 N MEAN CELL HGB CONCETRATION (test code = MCHC) 31.4 gram/dL 33.0-36. 0 L RED CELL DISTRIBUTION WIDTH (test code = RDW) 16.0 % 11.6-16. 2 N RED CELL DISTRIBUTION WIDTH SD (test code = RDW-SD) 54.2 fL 37 .0-51.0 H PLATELET COUNT (test code = PLT) 69 K/mm3 150-450 L MEAN PLATELET VOLUME (test code = MPV) 13.3 fL 6.7-11.0 H NEUTROPHIL % (test code = NT%) 75.4 % 39.0-69.0 H IMMATURE GRANULOCYTE % (test code = IG%) 0.7 % 0.0-5.0 N LYMPHOCYTE % (test code = LY%) 13.1 % 25.0-55.0 L MONOCYTE % (test code = MO%) 6.7 % 0.0-10.0 N EOSINOPHIL % (test code = EO%) 3.6 % 0.0-5.0 N BASOPHIL % (test code = BA%) 0.5 % 0.0-1.0 N NUCLEATED RBC % (test code = NRBC%) 0.0 % 0-0 N NEUTROPHIL # (test code = NT#) 6.29 K/mm3 1.8-7.7 N IMMATURE GRANULOCYTE # (test code = IG#) 0.06 x10 3/uL 0-0.03 H LYMPHOCYTE # (test code = LY#) 1.09 K/mm3 1.0-5.0 N MONOCYTE # (test code = MO#) 0.56 K/mm3 0-0.8 N EOSINOPHIL # (test code = EO#) 0.30 K/mm3 0.0-0.5 N BASOPHIL # (test code = BA#) 0.04 K/mm3 0.0-0.2 N NUCLEATED RBC # (test code = NRBC#) 0.00 K/mm3 0.0-0.1 N MANUAL DIFF REQUIRED (test code = MDIFF) NO, ONLY SCAN NEEDED DIFFERENTIAL [id number] 06:30:00* Test Item Value Reference Range Interpretation Comments STAIN ACCEPTABILITY (test code = STN ACCEPTABLE) STAIN ACCEPTABLE POLYCHROMASIA (test code = POLC) 1+ ANISOCYTOSIS (test code = ANISO) 1+ MORPHOLOGY COMMENT (test code = MOC) TEST NOT PERFORMED PLATELET ESTIMATE (test code = PLTEST) DECREASED PLATELET MORPHOLOGY (test code = PLTMORPH) GIANT PLATELETS SEEN CBC W/AUTO [id number] 05:08:00* Test Item Value Reference Range Interpretation Comments WHITE BLOOD CELL (test code = WBC) 8.3 K/mm3 4.5-12.5 N RED BLOOD CELL (test code = RBC) 2.87 mill/mm3 3.7-5.2 L HEMOGLOBIN (test code = HGB) 8.3 gram/dL 11.5-15.5 L HEMATOCRIT (test code = HCT) 26.4 % 36.0-46.0 L MEAN CELL VOLUME (test code = MCV) 92.0 fL 80-98 N MEAN CELL HGB (test code = MCH) 28.9 picogram 27.0-33.0 N MEAN CELL HGB CONCETRATION (test code = MCHC) 31.4 gram/dL 33.0-36. 0 L RED CELL DISTRIBUTION WIDTH (test code = RDW) 16.0 % 11.6-16. 2 N RED CELL DISTRIBUTION WIDTH SD (test code = RDW-SD) 54.2 fL 37 .0-51.0 H PLATELET COUNT (test code = PLT) 69 K/mm3 150-450 L MEAN PLATELET VOLUME (test code = MPV) 13.3 fL 6.7-11.0 H NEUTROPHIL % (test code = NT%) 75.4 % 39.0-69.0 H IMMATURE GRANULOCYTE % (test code = IG%) 0.7 % 0.0-5.0 N LYMPHOCYTE % (test code = LY%) 13.1 % 25.0-55.0 L MONOCYTE % (test code = MO%) 6.7 % 0.0-10.0 N EOSINOPHIL % (test code = EO%) 3.6 % 0.0-5.0 N BASOPHIL % (test code = BA%) 0.5 % 0.0-1.0 N NUCLEATED RBC % (test code = NRBC%) 0.0 % 0-0 N NEUTROPHIL # (test code = NT#) 6.29 K/mm3 1.8-7.7 N IMMATURE GRANULOCYTE # (test code = IG#) 0.06 x10 3/uL 0-0.03 H LYMPHOCYTE # (test code = LY#) 1.09 K/mm3 1.0-5.0 N MONOCYTE # (test code = MO#) 0.56 K/mm3 0-0.8 N EOSINOPHIL # (test code = EO#) 0.30 K/mm3 0.0-0.5 N BASOPHIL # (test code = BA#) 0.04 K/mm3 0.0-0.2 N NUCLEATED RBC # (test code = NRBC#) 0.00 K/mm3 0.0-0.1 N MANUAL DIFF REQUIRED (test code = MDIFF) NO, ONLY SCAN NEEDED DIFFERENTIAL [id number] 05:08:00* Test Item Value Reference Range Interpretation Comments STAIN ACCEPTABILITY (test code = STN ACCEPTABLE) CABOT RINGS (test code = CAB) MORPHOLOGY COMMENT (test code = MOC) PLATELET ESTIMATE (test code = PLTEST) PLATELET MORPHOLOGY (test code = PLTMORPH) CBC W/AUTO [id number] 05:08:00* Test Item Value Reference Range Interpretation Comments WHITE BLOOD CELL (test code = WBC) 8.3 K/mm3 4.5-12.5 N RED BLOOD CELL (test code = RBC) 2.87 mill/mm3 3.7-5.2 L HEMOGLOBIN (test code = HGB) 8.3 gram/dL 11.5-15.5 L HEMATOCRIT (test code = HCT) 26.4 % 36.0-46.0 L MEAN CELL VOLUME (test code = MCV) 92.0 fL 80-98 N MEAN CELL HGB (test code = MCH) 28.9 picogram 27.0-33.0 N MEAN CELL HGB CONCETRATION (test code = MCHC) 31.4 gram/dL 33.0-36. 0 L RED CELL DISTRIBUTION WIDTH (test code = RDW) 16.0 % 11.6-16. 2 N RED CELL DISTRIBUTION WIDTH SD (test code = RDW-SD) 54.2 fL 37 .0-51.0 H PLATELET COUNT (test code = PLT) 69 K/mm3 150-450 L MEAN PLATELET VOLUME (test code = MPV) 13.3 fL 6.7-11.0 H NEUTROPHIL % (test code = NT%) 75.4 % 39.0-69.0 H IMMATURE GRANULOCYTE % (test code = IG%) 0.7 % 0.0-5.0 N LYMPHOCYTE % (test code = LY%) 13.1 % 25.0-55.0 L MONOCYTE % (test code = MO%) 6.7 % 0.0-10.0 N EOSINOPHIL % (test code = EO%) 3.6 % 0.0-5.0 N BASOPHIL % (test code = BA%) 0.5 % 0.0-1.0 N NUCLEATED RBC % (test code = NRBC%) 0.0 % 0-0 N NEUTROPHIL # (test code = NT#) 6.29 K/mm3 1.8-7.7 N IMMATURE GRANULOCYTE # (test code = IG#) 0.06 x10 3/uL 0-0.03 H LYMPHOCYTE # (test code = LY#) 1.09 K/mm3 1.0-5.0 N MONOCYTE # (test code = MO#) 0.56 K/mm3 0-0.8 N EOSINOPHIL # (test code = EO#) 0.30 K/mm3 0.0-0.5 N BASOPHIL # (test code = BA#) 0.04 K/mm3 0.0-0.2 N NUCLEATED RBC # (test code = NRBC#) 0.00 K/mm3 0.0-0.1 N MANUAL DIFF REQUIRED (test code = MDIFF) NO, ONLY SCAN NEEDED DIFFERENTIAL [id number] 05:08:00* Test Item Value Reference Range Interpretation Comments STAIN ACCEPTABILITY (test code = STN ACCEPTABLE) MORPHOLOGY COMMENT (test code = MOC) PLATELET ESTIMATE (test code = PLTEST) PLATELET MORPHOLOGY (test code = PLTMORPH) CBC W/AUTO [id number] 05:07:00* Test Item Value Reference Range Interpretation Comments WHITE BLOOD CELL (test code = WBC) 8.3 K/mm3 4.5-12.5 N RED BLOOD CELL (test code = RBC) 2.87 mill/mm3 3.7-5.2 L HEMOGLOBIN (test code = HGB) 8.3 gram/dL 11.5-15.5 L HEMATOCRIT (test code = HCT) 26.4 % 36.0-46.0 L MEAN CELL VOLUME (test code = MCV) 92.0 fL 80-98 N MEAN CELL HGB (test code = MCH) 28.9 picogram 27.0-33.0 N MEAN CELL HGB CONCETRATION (test code = MCHC) 31.4 gram/dL 33.0-36. 0 L RED CELL DISTRIBUTION WIDTH (test code = RDW) 16.0 % 11.6-16. 2 N RED CELL DISTRIBUTION WIDTH SD (test code = RDW-SD) 54.2 fL 37 .0-51.0 H PLATELET COUNT (test code = PLT) 69 K/mm3 150-450 L MEAN PLATELET VOLUME (test code = MPV) 13.3 fL 6.7-11.0 H NEUTROPHIL % (test code = NT%) 75.4 % 39.0-69.0 H IMMATURE GRANULOCYTE % (test code = IG%) 0.7 % 0.0-5.0 N LYMPHOCYTE % (test code = LY%) 13.1 % 25.0-55.0 L MONOCYTE % (test code = MO%) 6.7 % 0.0-10.0 N EOSINOPHIL % (test code = EO%) 3.6 % 0.0-5.0 N BASOPHIL % (test code = BA%) 0.5 % 0.0-1.0 N NUCLEATED RBC % (test code = NRBC%) 0.0 % 0-0 N NEUTROPHIL # (test code = NT#) 6.29 K/mm3 1.8-7.7 N IMMATURE GRANULOCYTE # (test code = IG#) 0.06 x10 3/uL 0-0.03 H LYMPHOCYTE # (test code = LY#) 1.09 K/mm3 1.0-5.0 N MONOCYTE # (test code = MO#) 0.56 K/mm3 0-0.8 N EOSINOPHIL # (test code = EO#) 0.30 K/mm3 0.0-0.5 N BASOPHIL # (test code = BA#) 0.04 K/mm3 0.0-0.2 N NUCLEATED RBC # (test code = NRBC#) 0.00 K/mm3 0.0-0.1 N MANUAL DIFF REQUIRED (test code = MDIFF) NO, ONLY SCAN NEEDED DIFFERENTIAL [id number] 05:07:00* Test Item Value Reference Range Interpretation Comments STAIN ACCEPTABILITY (test code = STN ACCEPTABLE) CABOT RINGS (test code = CAB) MORPHOLOGY COMMENT (test code = MOC) PLATELET ESTIMATE (test code = PLTEST) PLATELET MORPHOLOGY (test code = PLTMORPH) CBC W/AUTO [id number] 05:07:00* Test Item Value Reference Range Interpretation Comments WHITE BLOOD CELL (test code = WBC) 8.3 K/mm3 4.5-12.5 N RED BLOOD CELL (test code = RBC) 2.87 mill/mm3 3.7-5.2 L HEMOGLOBIN (test code = HGB) 8.3 gram/dL 11.5-15.5 L HEMATOCRIT (test code = HCT) 26.4 % 36.0-46.0 L MEAN CELL VOLUME (test code = MCV) 92.0 fL 80-98 N MEAN CELL HGB (test code = MCH) 28.9 picogram 27.0-33.0 N MEAN CELL HGB CONCETRATION (test code = MCHC) 31.4 gram/dL 33.0-36. 0 L RED CELL DISTRIBUTION WIDTH (test code = RDW) 16.0 % 11.6-16. 2 N RED CELL DISTRIBUTION WIDTH SD (test code = RDW-SD) 54.2 fL 37 .0-51.0 H PLATELET COUNT (test code = PLT) 69 K/mm3 150-450 L MEAN PLATELET VOLUME (test code = MPV) 13.3 fL 6.7-11.0 H NEUTROPHIL % (test code = NT%) 75.4 % 39.0-69.0 H IMMATURE GRANULOCYTE % (test code = IG%) 0.7 % 0.0-5.0 N LYMPHOCYTE % (test code = LY%) 13.1 % 25.0-55.0 L MONOCYTE % (test code = MO%) 6.7 % 0.0-10.0 N EOSINOPHIL % (test code = EO%) 3.6 % 0.0-5.0 N BASOPHIL % (test code = BA%) 0.5 % 0.0-1.0 N NUCLEATED RBC % (test code = NRBC%) 0.0 % 0-0 N NEUTROPHIL # (test code = NT#) 6.29 K/mm3 1.8-7.7 N IMMATURE GRANULOCYTE # (test code = IG#) 0.06 x10 3/uL 0-0.03 H LYMPHOCYTE # (test code = LY#) 1.09 K/mm3 1.0-5.0 N MONOCYTE # (test code = MO#) 0.56 K/mm3 0-0.8 N EOSINOPHIL # (test code = EO#) 0.30 K/mm3 0.0-0.5 N BASOPHIL # (test code = BA#) 0.04 K/mm3 0.0-0.2 N NUCLEATED RBC # (test code = NRBC#) 0.00 K/mm3 0.0-0.1 N MANUAL DIFF REQUIRED (test code = MDIFF) NO, ONLY SCAN NEEDED DIFFERENTIAL [id number] 05:07:00* Test Item Value Reference Range Interpretation Comments STAIN ACCEPTABILITY (test code = STN ACCEPTABLE) CABOT RINGS (test code = CAB) MORPHOLOGY COMMENT (test code = MOC) PLATELET ESTIMATE (test code = PLTEST) PLATELET MORPHOLOGY (test code = PLTMORPH) BASIC METABOLIC [id number] 05:56:00* Test Item Value Reference Range Interpretation Comments SODIUM (test code = NA) 139 mmol/L 136-145 N POTASSIUM (test code = K) 3.8 mmol/L 3.5-5.1 N CHLORIDE (test code = CL) 105.0 mmol/L 98-107 N CARBON DIOXIDE (test code = CO2) 32.0 mmol/L 21-32 N ANION GAP (test code = GAP) 5.8 10-20 L GLUCOSE (test code = GLU) 124 mg/dL 74-106 H BLOOD UREA NITROGEN (test code = BUN) 32 mg/dL 7-18 H GLOMERULAR FILTRATION RATE (test code = GFR) 9 mL/min >=60 Estimated GFR by using Modified MDRD formula.Chronic kidney disease is defined as either kidney damageor GFR <60 mL/min/1.73 m2 for >3 months. CREATININE (test code = CREAT) 4.80 mg/dL 0.55-1.02 H Note change in reference range due to change in reagent. BUN/CREATININE RATIO (test code = BUN/CREA) 6.6 10-20 L CALCIUM (test code = CA) 8.2 mg/dL 8.5-10.1 L BASIC METABOLIC [id number] 05:47:00* Test Item Value Reference Range Interpretation Comments SODIUM (test code = NA) 139 mmol/L 136-145 N POTASSIUM (test code = K) 3.8 mmol/L 3.5-5.1 N CHLORIDE (test code = CL) 105.0 mmol/L 98-107 N CARBON DIOXIDE (test code = CO2) mmol/L 21-32 ANION GAP (test code = GAP) 10-20 GLUCOSE (test code = GLU) mg/dL 74-106 BLOOD UREA NITROGEN (test code = BUN) mg/dL 7-18 GLOMERULAR FILTRATION RATE (test code = GFR) mL/min >=60 CREATININE (test code = CREAT) mg/dL 0.55-1.02 BUN/CREATININE RATIO (test code = BUN/CREA) 10-20 CALCIUM (test code = CA) mg/dL 8.5-10.1 CBC W/AUTO [id number] 05:15:00* Test Item Value Reference Range Interpretation Comments WHITE BLOOD CELL (test code = WBC) 8.1 K/mm3 4.5-12.5 N RED BLOOD CELL (test code = RBC) 2.92 mill/mm3 3.7-5.2 L HEMOGLOBIN (test code = HGB) 8.6 gram/dL 11.5-15.5 L HEMATOCRIT (test code = HCT) 26.9 % 36.0-46.0 L MEAN CELL VOLUME (test code = MCV) 92.1 fL 80-98 N MEAN CELL HGB (test code = MCH) 29.5 picogram 27.0-33.0 N MEAN CELL HGB CONCETRATION (test code = MCHC) 32.0 gram/dL 33.0-36. 0 L RED CELL DISTRIBUTION WIDTH (test code = RDW) 16.0 % 11.6-16. 2 N RED CELL DISTRIBUTION WIDTH SD (test code = RDW-SD) 53.6 fL 37 .0-51.0 H PLATELET COUNT (test code = PLT) 71 K/mm3 150-450 L MEAN PLATELET VOLUME (test code = MPV) 13.0 fL 6.7-11.0 H NEUTROPHIL % (test code = NT%) 76.3 % 39.0-69.0 H IMMATURE GRANULOCYTE % (test code = IG%) 0.5 % 0.0-5.0 N LYMPHOCYTE % (test code = LY%) 12.3 % 25.0-55.0 L MONOCYTE % (test code = MO%) 7.3 % 0.0-10.0 N EOSINOPHIL % (test code = EO%) 3.4 % 0.0-5.0 N BASOPHIL % (test code = BA%) 0.2 % 0.0-1.0 N NUCLEATED RBC % (test code = NRBC%) 0.0 % 0-0 N NEUTROPHIL # (test code = NT#) 6.20 K/mm3 1.8-7.7 N IMMATURE GRANULOCYTE # (test code = IG#) 0.04 x10 3/uL 0-0.03 H LYMPHOCYTE # (test code = LY#) 1.00 K/mm3 1.0-5.0 N MONOCYTE # (test code = MO#) 0.59 K/mm3 0-0.8 N EOSINOPHIL # (test code = EO#) 0.28 K/mm3 0.0-0.5 N BASOPHIL # (test code = BA#) 0.02 K/mm3 0.0-0.2 N NUCLEATED RBC # (test code = NRBC#) 0.00 K/mm3 0.0-0.1 N [id number] 05:17:00* Test Item Value Reference Range Interpretation Comments PHOSPHORUS (test code = PHOS) 3.6 mg/dL 2.5-4.9 N FE W/TOTAL IRON BINDING [id number] 05:17:00* Test Item Value Reference Range Interpretation Comments SERUM IRON (test code = IRON) 26 ug/dL 50-175 L TOTAL IRON BINDING CAPACITY (test code = TIBC) 139 mcg/dL 250-450 L IRON SATURATION (test code = FESAT) 18.71 % 13-45 N [id number] 05:17:00* Test Item Value Reference Range Interpretation Comments FERRITIN (test code = EDITH) 1860 ng/mL 8-388 H CBC W/AUTO [id number] 04:54:00* Test Item Value Reference Range Interpretation Comments WHITE BLOOD CELL (test code = WBC) 9.7 K/mm3 4.5-12.5 N RED BLOOD CELL (test code = RBC) 3.02 mill/mm3 3.7-5.2 L HEMOGLOBIN (test code = HGB) 8.8 gram/dL 11.5-15.5 L HEMATOCRIT (test code = HCT) 27.7 % 36.0-46.0 L MEAN CELL VOLUME (test code = MCV) 91.7 fL 80-98 N MEAN CELL HGB (test code = MCH) 29.1 picogram 27.0-33.0 N MEAN CELL HGB CONCETRATION (test code = MCHC) 31.8 gram/dL 33.0-36. 0 L RED CELL DISTRIBUTION WIDTH (test code = RDW) 16.3 % 11.6-16. 2 H RED CELL DISTRIBUTION WIDTH SD (test code = RDW-SD) 53.5 fL 37 .0-51.0 H PLATELET COUNT (test code = PLT) 71 K/mm3 150-450 L MEAN PLATELET VOLUME (test code = MPV) 12.5 fL 6.7-11.0 H NEUTROPHIL % (test code = NT%) 75.9 % 39.0-69.0 H IMMATURE GRANULOCYTE % (test code = IG%) 0.4 % 0.0-5.0 N LYMPHOCYTE % (test code = LY%) 11.7 % 25.0-55.0 L MONOCYTE % (test code = MO%) 8.1 % 0.0-10.0 N EOSINOPHIL % (test code = EO%) 3.5 % 0.0-5.0 N BASOPHIL % (test code = BA%) 0.4 % 0.0-1.0 N NUCLEATED RBC % (test code = NRBC%) 0.0 % 0-0 N NEUTROPHIL # (test code = NT#) 7.38 K/mm3 1.8-7.7 N IMMATURE GRANULOCYTE # (test code = IG#) 0.04 x10 3/uL 0-0.03 H LYMPHOCYTE # (test code = LY#) 1.14 K/mm3 1.0-5.0 N MONOCYTE # (test code = MO#) 0.79 K/mm3 0-0.8 N EOSINOPHIL # (test code = EO#) 0.34 K/mm3 0.0-0.5 N BASOPHIL # (test code = BA#) 0.04 K/mm3 0.0-0.2 N NUCLEATED RBC # (test code = NRBC#) 0.00 K/mm3 0.0-0.1 N MANUAL DIFF REQUIRED (test code = MDIFF) NO, ONLY SCAN NEEDED DIFFERENTIAL [id number] 04:54:00* Test Item Value Reference Range Interpretation Comments STAIN ACCEPTABILITY (test code = STN ACCEPTABLE) STAIN ACCEPTABLE ANISOCYTOSIS (test code = ANISO) 1+ MICROCYTOSIS (test code = MICR) 1+ MORPHOLOGY COMMENT (test code = MOC) TEST NOT PERFORMED PLATELET ESTIMATE (test code = PLTEST) DECREASED PLATELET MORPHOLOGY (test code = PLTMORPH) NORMAL CBC W/AUTO [id number] 04:23:00* Test Item Value Reference Range Interpretation Comments WHITE BLOOD CELL (test code = WBC) 9.7 K/mm3 4.5-12.5 N RED BLOOD CELL (test code = RBC) 3.02 mill/mm3 3.7-5.2 L HEMOGLOBIN (test code = HGB) 8.8 gram/dL 11.5-15.5 L HEMATOCRIT (test code = HCT) 27.7 % 36.0-46.0 L MEAN CELL VOLUME (test code = MCV) 91.7 fL 80-98 N MEAN CELL HGB (test code = MCH) 29.1 picogram 27.0-33.0 N MEAN CELL HGB CONCETRATION (test code = MCHC) 31.8 gram/dL 33.0-36. 0 L RED CELL DISTRIBUTION WIDTH (test code = RDW) 16.3 % 11.6-16. 2 H RED CELL DISTRIBUTION WIDTH SD (test code = RDW-SD) 53.5 fL 37 .0-51.0 H PLATELET COUNT (test code = PLT) 71 K/mm3 150-450 L MEAN PLATELET VOLUME (test code = MPV) 12.5 fL 6.7-11.0 H NEUTROPHIL % (test code = NT%) 75.9 % 39.0-69.0 H IMMATURE GRANULOCYTE % (test code = IG%) 0.4 % 0.0-5.0 N LYMPHOCYTE % (test code = LY%) 11.7 % 25.0-55.0 L MONOCYTE % (test code = MO%) 8.1 % 0.0-10.0 N EOSINOPHIL % (test code = EO%) 3.5 % 0.0-5.0 N BASOPHIL % (test code = BA%) 0.4 % 0.0-1.0 N NUCLEATED RBC % (test code = NRBC%) 0.0 % 0-0 N NEUTROPHIL # (test code = NT#) 7.38 K/mm3 1.8-7.7 N IMMATURE GRANULOCYTE # (test code = IG#) 0.04 x10 3/uL 0-0.03 H LYMPHOCYTE # (test code = LY#) 1.14 K/mm3 1.0-5.0 N MONOCYTE # (test code = MO#) 0.79 K/mm3 0-0.8 N EOSINOPHIL # (test code = EO#) 0.34 K/mm3 0.0-0.5 N BASOPHIL # (test code = BA#) 0.04 K/mm3 0.0-0.2 N NUCLEATED RBC # (test code = NRBC#) 0.00 K/mm3 0.0-0.1 N MANUAL DIFF REQUIRED (test code = MDIFF) NO, ONLY SCAN NEEDED DIFFERENTIAL [id number] 04:23:00* Test Item Value Reference Range Interpretation Comments STAIN ACCEPTABILITY (test code = STN ACCEPTABLE) CABOT RINGS (test code = CAB) MORPHOLOGY COMMENT (test code = MOC) PLATELET ESTIMATE (test code = PLTEST) PLATELET MORPHOLOGY (test code = PLTMORPH) CBC W/AUTO [id number] 04:23:00* Test Item Value Reference Range Interpretation Comments WHITE BLOOD CELL (test code = WBC) 9.7 K/mm3 4.5-12.5 N RED BLOOD CELL (test code = RBC) 3.02 mill/mm3 3.7-5.2 L HEMOGLOBIN (test code = HGB) 8.8 gram/dL 11.5-15.5 L HEMATOCRIT (test code = HCT) 27.7 % 36.0-46.0 L MEAN CELL VOLUME (test code = MCV) 91.7 fL 80-98 N MEAN CELL HGB (test code = MCH) 29.1 picogram 27.0-33.0 N MEAN CELL HGB CONCETRATION (test code = MCHC) 31.8 gram/dL 33.0-36. 0 L RED CELL DISTRIBUTION WIDTH (test code = RDW) 16.3 % 11.6-16. 2 H RED CELL DISTRIBUTION WIDTH SD (test code = RDW-SD) 53.5 fL 37 .0-51.0 H PLATELET COUNT (test code = PLT) 71 K/mm3 150-450 L MEAN PLATELET VOLUME (test code = MPV) 12.5 fL 6.7-11.0 H NEUTROPHIL % (test code = NT%) 75.9 % 39.0-69.0 H IMMATURE GRANULOCYTE % (test code = IG%) 0.4 % 0.0-5.0 N LYMPHOCYTE % (test code = LY%) 11.7 % 25.0-55.0 L MONOCYTE % (test code = MO%) 8.1 % 0.0-10.0 N EOSINOPHIL % (test code = EO%) 3.5 % 0.0-5.0 N BASOPHIL % (test code = BA%) 0.4 % 0.0-1.0 N NUCLEATED RBC % (test code = NRBC%) 0.0 % 0-0 N NEUTROPHIL # (test code = NT#) 7.38 K/mm3 1.8-7.7 N IMMATURE GRANULOCYTE # (test code = IG#) 0.04 x10 3/uL 0-0.03 H LYMPHOCYTE # (test code = LY#) 1.14 K/mm3 1.0-5.0 N MONOCYTE # (test code = MO#) 0.79 K/mm3 0-0.8 N EOSINOPHIL # (test code = EO#) 0.34 K/mm3 0.0-0.5 N BASOPHIL # (test code = BA#) 0.04 K/mm3 0.0-0.2 N NUCLEATED RBC # (test code = NRBC#) 0.00 K/mm3 0.0-0.1 N MANUAL DIFF REQUIRED (test code = MDIFF) NO, ONLY SCAN NEEDED DIFFERENTIAL [id number] 04:23:00* Test Item Value Reference Range Interpretation Comments STAIN ACCEPTABILITY (test code = STN ACCEPTABLE) MORPHOLOGY COMMENT (test code = MOC) PLATELET ESTIMATE (test code = PLTEST) PLATELET MORPHOLOGY (test code = PLTMORPH) CBC W/AUTO [id number] 04:22:00* Test Item Value Reference Range Interpretation Comments WHITE BLOOD CELL (test code = WBC) 9.7 K/mm3 4.5-12.5 N RED BLOOD CELL (test code = RBC) 3.02 mill/mm3 3.7-5.2 L HEMOGLOBIN (test code = HGB) 8.8 gram/dL 11.5-15.5 L HEMATOCRIT (test code = HCT) 27.7 % 36.0-46.0 L MEAN CELL VOLUME (test code = MCV) 91.7 fL 80-98 N MEAN CELL HGB (test code = MCH) 29.1 picogram 27.0-33.0 N MEAN CELL HGB CONCETRATION (test code = MCHC) 31.8 gram/dL 33.0-36. 0 L RED CELL DISTRIBUTION WIDTH (test code = RDW) 16.3 % 11.6-16. 2 H RED CELL DISTRIBUTION WIDTH SD (test code = RDW-SD) 53.5 fL 37 .0-51.0 H PLATELET COUNT (test code = PLT) 71 K/mm3 150-450 L MEAN PLATELET VOLUME (test code = MPV) 12.5 fL 6.7-11.0 H NEUTROPHIL % (test code = NT%) 75.9 % 39.0-69.0 H IMMATURE GRANULOCYTE % (test code = IG%) 0.4 % 0.0-5.0 N LYMPHOCYTE % (test code = LY%) 11.7 % 25.0-55.0 L MONOCYTE % (test code = MO%) 8.1 % 0.0-10.0 N EOSINOPHIL % (test code = EO%) 3.5 % 0.0-5.0 N BASOPHIL % (test code = BA%) 0.4 % 0.0-1.0 N NUCLEATED RBC % (test code = NRBC%) 0.0 % 0-0 N NEUTROPHIL # (test code = NT#) 7.38 K/mm3 1.8-7.7 N IMMATURE GRANULOCYTE # (test code = IG#) 0.04 x10 3/uL 0-0.03 H LYMPHOCYTE # (test code = LY#) 1.14 K/mm3 1.0-5.0 N MONOCYTE # (test code = MO#) 0.79 K/mm3 0-0.8 N EOSINOPHIL # (test code = EO#) 0.34 K/mm3 0.0-0.5 N BASOPHIL # (test code = BA#) 0.04 K/mm3 0.0-0.2 N NUCLEATED RBC # (test code = NRBC#) 0.00 K/mm3 0.0-0.1 N MANUAL DIFF REQUIRED (test code = MDIFF) NO, ONLY SCAN NEEDED DIFFERENTIAL [id number] 04:22:00* Test Item Value Reference Range Interpretation Comments STAIN ACCEPTABILITY (test code = STN ACCEPTABLE) CABOT RINGS (test code = CAB) MORPHOLOGY COMMENT (test code = MOC) PLATELET ESTIMATE (test code = PLTEST) PLATELET MORPHOLOGY (test code = PLTMORPH) CBC W/AUTO [id number] 04:22:00* Test Item Value Reference Range Interpretation Comments WHITE BLOOD CELL (test code = WBC) 9.7 K/mm3 4.5-12.5 N RED BLOOD CELL (test code = RBC) 3.02 mill/mm3 3.7-5.2 L HEMOGLOBIN (test code = HGB) 8.8 gram/dL 11.5-15.5 L HEMATOCRIT (test code = HCT) 27.7 % 36.0-46.0 L MEAN CELL VOLUME (test code = MCV) 91.7 fL 80-98 N MEAN CELL HGB (test code = MCH) 29.1 picogram 27.0-33.0 N MEAN CELL HGB CONCETRATION (test code = MCHC) 31.8 gram/dL 33.0-36. 0 L RED CELL DISTRIBUTION WIDTH (test code = RDW) 16.3 % 11.6-16. 2 H RED CELL DISTRIBUTION WIDTH SD (test code = RDW-SD) 53.5 fL 37 .0-51.0 H PLATELET COUNT (test code = PLT) 71 K/mm3 150-450 L MEAN PLATELET VOLUME (test code = MPV) 12.5 fL 6.7-11.0 H NEUTROPHIL % (test code = NT%) 75.9 % 39.0-69.0 H IMMATURE GRANULOCYTE % (test code = IG%) 0.4 % 0.0-5.0 N LYMPHOCYTE % (test code = LY%) 11.7 % 25.0-55.0 L MONOCYTE % (test code = MO%) 8.1 % 0.0-10.0 N EOSINOPHIL % (test code = EO%) 3.5 % 0.0-5.0 N BASOPHIL % (test code = BA%) 0.4 % 0.0-1.0 N NUCLEATED RBC % (test code = NRBC%) 0.0 % 0-0 N NEUTROPHIL # (test code = NT#) 7.38 K/mm3 1.8-7.7 N IMMATURE GRANULOCYTE # (test code = IG#) 0.04 x10 3/uL 0-0.03 H LYMPHOCYTE # (test code = LY#) 1.14 K/mm3 1.0-5.0 N MONOCYTE # (test code = MO#) 0.79 K/mm3 0-0.8 N EOSINOPHIL # (test code = EO#) 0.34 K/mm3 0.0-0.5 N BASOPHIL # (test code = BA#) 0.04 K/mm3 0.0-0.2 N NUCLEATED RBC # (test code = NRBC#) 0.00 K/mm3 0.0-0.1 N MANUAL DIFF REQUIRED (test code = MDIFF) NO, ONLY SCAN NEEDED DIFFERENTIAL [id number] 04:22:00* Test Item Value Reference Range Interpretation Comments STAIN ACCEPTABILITY (test code = STN ACCEPTABLE) CABOT RINGS (test code = CAB) MORPHOLOGY COMMENT (test code = MOC) PLATELET ESTIMATE (test code = PLTEST) PLATELET MORPHOLOGY (test code = PLTMORPH) [id number] 16:36:00* Test Item Value Reference Range Interpretation Comments GLUBED (test code = GLUBED) 156 mg/dL 74-106 H Performed by certified panel raiser operator at [facility] [id number] 12:14:00* Test Item Value Reference Range Interpretation Comments GLUBED (test code = GLUBED) 190 mg/dL 74-106 H Performed by certified panel raiser operator at [facility] CBC W/AUTO [id number] 09:15:00* Test Item Value Reference Range Interpretation Comments WHITE BLOOD CELL (test code = WBC) 9.4 K/mm3 4.5-12.5 N RED BLOOD CELL (test code = RBC) 3.14 mill/mm3 3.7-5.2 L HEMOGLOBIN (test code = HGB) 9.3 gram/dL 11.5-15.5 L HEMATOCRIT (test code = HCT) 28.7 % 36.0-46.0 L MEAN CELL VOLUME (test code = MCV) 91.4 fL 80-98 N MEAN CELL HGB (test code = MCH) 29.6 picogram 27.0-33.0 N MEAN CELL HGB CONCETRATION (test code = MCHC) 32.4 gram/dL 33.0-36. 0 L RED CELL DISTRIBUTION WIDTH (test code = RDW) 16.4 % 11.6-16. 2 H RED CELL DISTRIBUTION WIDTH SD (test code = RDW-SD) 54.4 fL 37 .0-51.0 H PLATELET COUNT (test code = PLT) 65 K/mm3 150-450 L MEAN PLATELET VOLUME (test code = MPV) 12.7 fL 6.7-11.0 H NEUTROPHIL % (test code = NT%) 81.9 % 39.0-69.0 H IMMATURE GRANULOCYTE % (test code = IG%) 0.7 % 0.0-5.0 N LYMPHOCYTE % (test code = LY%) 8.0 % 25.0-55.0 L MONOCYTE % (test code = MO%) 6.9 % 0.0-10.0 N EOSINOPHIL % (test code = EO%) 2.2 % 0.0-5.0 N BASOPHIL % (test code = BA%) 0.3 % 0.0-1.0 N NUCLEATED RBC % (test code = NRBC%) 0.0 % 0-0 N NEUTROPHIL # (test code = NT#) 7.72 K/mm3 1.8-7.7 H IMMATURE GRANULOCYTE # (test code = IG#) 0.07 x10 3/uL 0-0.03 H LYMPHOCYTE # (test code = LY#) 0.75 K/mm3 1.0-5.0 L MONOCYTE # (test code = MO#) 0.65 K/mm3 0-0.8 N EOSINOPHIL # (test code = EO#) 0.21 K/mm3 0.0-0.5 N BASOPHIL # (test code = BA#) 0.03 K/mm3 0.0-0.2 N NUCLEATED RBC # (test code = NRBC#) 0.00 K/mm3 0.0-0.1 N MANUAL DIFF REQUIRED (test code = MDIFF) NO, ONLY SCAN NEEDED DIFFERENTIAL [id number] 09:15:00* Test Item Value Reference Range Interpretation Comments STAIN ACCEPTABILITY (test code = STN ACCEPTABLE) STAIN ACCEPTABLE ANISOCYTOSIS (test code = ANISO) 2+ MICROCYTOSIS (test code = MICR) 2+ PLATELET ESTIMATE (test code = PLTEST) DECREASED PLATELET MORPHOLOGY (test code = PLTMORPH) SIZE VARIABLE LARGE PLATELETS SEEN [id number] 08:06:00* Test Item Value Reference Range Interpretation Comments GLUBED (test code = GLUBED) 119 mg/dL 74-106 H Performed by certified panel raiser operator at [facility] CBC W/AUTO [id number] 07:06:00* Test Item Value Reference Range Interpretation Comments WHITE BLOOD CELL (test code = WBC) 9.4 K/mm3 4.5-12.5 N RED BLOOD CELL (test code = RBC) 3.14 mill/mm3 3.7-5.2 L HEMOGLOBIN (test code = HGB) 9.3 gram/dL 11.5-15.5 L HEMATOCRIT (test code = HCT) 28.7 % 36.0-46.0 L MEAN CELL VOLUME (test code = MCV) 91.4 fL 80-98 N MEAN CELL HGB (test code = MCH) 29.6 picogram 27.0-33.0 N MEAN CELL HGB CONCETRATION (test code = MCHC) 32.4 gram/dL 33.0-36. 0 L RED CELL DISTRIBUTION WIDTH (test code = RDW) 16.4 % 11.6-16. 2 H RED CELL DISTRIBUTION WIDTH SD (test code = RDW-SD) 54.4 fL 37 .0-51.0 H PLATELET COUNT (test code = PLT) 65 K/mm3 150-450 L MEAN PLATELET VOLUME (test code = MPV) 12.7 fL 6.7-11.0 H NEUTROPHIL % (test code = NT%) 81.9 % 39.0-69.0 H IMMATURE GRANULOCYTE % (test code = IG%) 0.7 % 0.0-5.0 N LYMPHOCYTE % (test code = LY%) 8.0 % 25.0-55.0 L MONOCYTE % (test code = MO%) 6.9 % 0.0-10.0 N EOSINOPHIL % (test code = EO%) 2.2 % 0.0-5.0 N BASOPHIL % (test code = BA%) 0.3 % 0.0-1.0 N NUCLEATED RBC % (test code = NRBC%) 0.0 % 0-0 N NEUTROPHIL # (test code = NT#) 7.72 K/mm3 1.8-7.7 H IMMATURE GRANULOCYTE # (test code = IG#) 0.07 x10 3/uL 0-0.03 H LYMPHOCYTE # (test code = LY#) 0.75 K/mm3 1.0-5.0 L MONOCYTE # (test code = MO#) 0.65 K/mm3 0-0.8 N EOSINOPHIL # (test code = EO#) 0.21 K/mm3 0.0-0.5 N BASOPHIL # (test code = BA#) 0.03 K/mm3 0.0-0.2 N NUCLEATED RBC # (test code = NRBC#) 0.00 K/mm3 0.0-0.1 N MANUAL DIFF REQUIRED (test code = MDIFF) NO, ONLY SCAN NEEDED DIFFERENTIAL [id number] 07:06:00* Test Item Value Reference Range Interpretation Comments STAIN ACCEPTABILITY (test code = STN ACCEPTABLE) CABOT RINGS (test code = CAB) MORPHOLOGY COMMENT (test code = MOC) PLATELET ESTIMATE (test code = PLTEST) PLATELET MORPHOLOGY (test code = PLTMORPH) CBC W/AUTO [id number] 07:06:00* Test Item Value Reference Range Interpretation Comments WHITE BLOOD CELL (test code = WBC) 9.4 K/mm3 4.5-12.5 N RED BLOOD CELL (test code = RBC) 3.14 mill/mm3 3.7-5.2 L HEMOGLOBIN (test code = HGB) 9.3 gram/dL 11.5-15.5 L HEMATOCRIT (test code = HCT) 28.7 % 36.0-46.0 L MEAN CELL VOLUME (test code = MCV) 91.4 fL 80-98 N MEAN CELL HGB (test code = MCH) 29.6 picogram 27.0-33.0 N MEAN CELL HGB CONCETRATION (test code = MCHC) 32.4 gram/dL 33.0-36. 0 L RED CELL DISTRIBUTION WIDTH (test code = RDW) 16.4 % 11.6-16. 2 H RED CELL DISTRIBUTION WIDTH SD (test code = RDW-SD) 54.4 fL 37 .0-51.0 H PLATELET COUNT (test code = PLT) 65 K/mm3 150-450 L MEAN PLATELET VOLUME (test code = MPV) 12.7 fL 6.7-11.0 H NEUTROPHIL % (test code = NT%) 81.9 % 39.0-69.0 H IMMATURE GRANULOCYTE % (test code = IG%) 0.7 % 0.0-5.0 N LYMPHOCYTE % (test code = LY%) 8.0 % 25.0-55.0 L MONOCYTE % (test code = MO%) 6.9 % 0.0-10.0 N EOSINOPHIL % (test code = EO%) 2.2 % 0.0-5.0 N BASOPHIL % (test code = BA%) 0.3 % 0.0-1.0 N NUCLEATED RBC % (test code = NRBC%) 0.0 % 0-0 N NEUTROPHIL # (test code = NT#) 7.72 K/mm3 1.8-7.7 H IMMATURE GRANULOCYTE # (test code = IG#) 0.07 x10 3/uL 0-0.03 H LYMPHOCYTE # (test code = LY#) 0.75 K/mm3 1.0-5.0 L MONOCYTE # (test code = MO#) 0.65 K/mm3 0-0.8 N EOSINOPHIL # (test code = EO#) 0.21 K/mm3 0.0-0.5 N BASOPHIL # (test code = BA#) 0.03 K/mm3 0.0-0.2 N NUCLEATED RBC # (test code = NRBC#) 0.00 K/mm3 0.0-0.1 N MANUAL DIFF REQUIRED (test code = MDIFF) NO, ONLY SCAN NEEDED DIFFERENTIAL [id number] 07:06:00* Test Item Value Reference Range Interpretation Comments STAIN ACCEPTABILITY (test code = STN ACCEPTABLE) CABOT RINGS (test code = CAB) MORPHOLOGY COMMENT (test code = MOC) PLATELET ESTIMATE (test code = PLTEST) PLATELET MORPHOLOGY (test code = PLTMORPH) CBC W/AUTO [id number] 07:06:00* Test Item Value Reference Range Interpretation Comments WHITE BLOOD CELL (test code = WBC) 9.4 K/mm3 4.5-12.5 N RED BLOOD CELL (test code = RBC) 3.14 mill/mm3 3.7-5.2 L HEMOGLOBIN (test code = HGB) 9.3 gram/dL 11.5-15.5 L HEMATOCRIT (test code = HCT) 28.7 % 36.0-46.0 L MEAN CELL VOLUME (test code = MCV) 91.4 fL 80-98 N MEAN CELL HGB (test code = MCH) 29.6 picogram 27.0-33.0 N MEAN CELL HGB CONCETRATION (test code = MCHC) 32.4 gram/dL 33.0-36. 0 L RED CELL DISTRIBUTION WIDTH (test code = RDW) 16.4 % 11.6-16. 2 H RED CELL DISTRIBUTION WIDTH SD (test code = RDW-SD) 54.4 fL 37 .0-51.0 H PLATELET COUNT (test code = PLT) 65 K/mm3 150-450 L MEAN PLATELET VOLUME (test code = MPV) 12.7 fL 6.7-11.0 H NEUTROPHIL % (test code = NT%) 81.9 % 39.0-69.0 H IMMATURE GRANULOCYTE % (test code = IG%) 0.7 % 0.0-5.0 N LYMPHOCYTE % (test code = LY%) 8.0 % 25.0-55.0 L MONOCYTE % (test code = MO%) 6.9 % 0.0-10.0 N EOSINOPHIL % (test code = EO%) 2.2 % 0.0-5.0 N BASOPHIL % (test code = BA%) 0.3 % 0.0-1.0 N NUCLEATED RBC % (test code = NRBC%) 0.0 % 0-0 N NEUTROPHIL # (test code = NT#) 7.72 K/mm3 1.8-7.7 H IMMATURE GRANULOCYTE # (test code = IG#) 0.07 x10 3/uL 0-0.03 H LYMPHOCYTE # (test code = LY#) 0.75 K/mm3 1.0-5.0 L MONOCYTE # (test code = MO#) 0.65 K/mm3 0-0.8 N EOSINOPHIL # (test code = EO#) 0.21 K/mm3 0.0-0.5 N BASOPHIL # (test code = BA#) 0.03 K/mm3 0.0-0.2 N NUCLEATED RBC # (test code = NRBC#) 0.00 K/mm3 0.0-0.1 N MANUAL DIFF REQUIRED (test code = MDIFF) NO, ONLY SCAN NEEDED DIFFERENTIAL [id number] 07:06:00* Test Item Value Reference Range Interpretation Comments STAIN ACCEPTABILITY (test code = STN ACCEPTABLE) MORPHOLOGY COMMENT (test code = MOC) PLATELET ESTIMATE (test code = PLTEST) PLATELET MORPHOLOGY (test code = PLTMORPH) CBC W/AUTO [id number] 07:05:00* Test Item Value Reference Range Interpretation Comments WHITE BLOOD CELL (test code = WBC) 9.4 K/mm3 4.5-12.5 N RED BLOOD CELL (test code = RBC) 3.14 mill/mm3 3.7-5.2 L HEMOGLOBIN (test code = HGB) 9.3 gram/dL 11.5-15.5 L HEMATOCRIT (test code = HCT) 28.7 % 36.0-46.0 L MEAN CELL VOLUME (test code = MCV) 91.4 fL 80-98 N MEAN CELL HGB (test code = MCH) 29.6 picogram 27.0-33.0 N MEAN CELL HGB CONCETRATION (test code = MCHC) 32.4 gram/dL 33.0-36. 0 L RED CELL DISTRIBUTION WIDTH (test code = RDW) 16.4 % 11.6-16. 2 H RED CELL DISTRIBUTION WIDTH SD (test code = RDW-SD) 54.4 fL 37 .0-51.0 H PLATELET COUNT (test code = PLT) 65 K/mm3 150-450 L MEAN PLATELET VOLUME (test code = MPV) 12.7 fL 6.7-11.0 H NEUTROPHIL % (test code = NT%) 81.9 % 39.0-69.0 H IMMATURE GRANULOCYTE % (test code = IG%) 0.7 % 0.0-5.0 N LYMPHOCYTE % (test code = LY%) 8.0 % 25.0-55.0 L MONOCYTE % (test code = MO%) 6.9 % 0.0-10.0 N EOSINOPHIL % (test code = EO%) 2.2 % 0.0-5.0 N BASOPHIL % (test code = BA%) 0.3 % 0.0-1.0 N NUCLEATED RBC % (test code = NRBC%) 0.0 % 0-0 N NEUTROPHIL # (test code = NT#) 7.72 K/mm3 1.8-7.7 H IMMATURE GRANULOCYTE # (test code = IG#) 0.07 x10 3/uL 0-0.03 H LYMPHOCYTE # (test code = LY#) 0.75 K/mm3 1.0-5.0 L MONOCYTE # (test code = MO#) 0.65 K/mm3 0-0.8 N EOSINOPHIL # (test code = EO#) 0.21 K/mm3 0.0-0.5 N BASOPHIL # (test code = BA#) 0.03 K/mm3 0.0-0.2 N NUCLEATED RBC # (test code = NRBC#) 0.00 K/mm3 0.0-0.1 N MANUAL DIFF REQUIRED (test code = MDIFF) NO, ONLY SCAN NEEDED DIFFERENTIAL [id number] 07:05:00* Test Item Value Reference Range Interpretation Comments STAIN ACCEPTABILITY (test code = STN ACCEPTABLE) CABOT RINGS (test code = CAB) MORPHOLOGY COMMENT (test code = MOC) PLATELET ESTIMATE (test code = PLTEST) PLATELET MORPHOLOGY (test code = PLTMORPH) [id number] 01:58:00* Test Item Value Reference Range Interpretation Comments GLUBED (test code = GLUBED) 157 mg/dL 74-106 H Performed by certified panel raiser operator at [facility] [id number] 21:33:00* Test Item Value Reference Range Interpretation Comments GLUBED (test code = GLUBED) 148 mg/dL 74-106 H Performed by certified panel raiser operator at [facility] [id number] 17:05:00* Test Item Value Reference Range Interpretation Comments GLUBED (test code = GLUBED) 143 mg/dL 74-106 H Performed by certified panel raiser operator at [facility] [id number] 13:18:00* Test Item Value Reference Range Interpretation Comments POTASSIUM (test code = K) 3.0 mmol/L 3.5-5.1 L [id number] 08:37:00* Test Item Value Reference Range Interpretation Comments GLUBED (test code = GLUBED) 111 mg/dL 74-106 H Performed by certified panel raiser operator at [facility] CBC W/AUTO [id number] 06:23:00* Test Item Value Reference Range Interpretation Comments WHITE BLOOD CELL (test code = WBC) 10.7 K/mm3 4.5-12.5 N RED BLOOD CELL (test code = RBC) 2.87 mill/mm3 3.7-5.2 L HEMOGLOBIN (test code = HGB) 8.5 gram/dL 11.5-15.5 L HEMATOCRIT (test code = HCT) 26.5 % 36.0-46.0 L MEAN CELL VOLUME (test code = MCV) 92.3 fL 80-98 N MEAN CELL HGB (test code = MCH) 29.6 picogram 27.0-33.0 N MEAN CELL HGB CONCETRATION (test code = MCHC) 32.1 gram/dL 33.0-36. 0 L RED CELL DISTRIBUTION WIDTH (test code = RDW) 17.1 % 11.6-16. 2 H RED CELL DISTRIBUTION WIDTH SD (test code = RDW-SD) 57.3 fL 37 .0-51.0 H PLATELET COUNT (test code = PLT) 65 K/mm3 150-450 L MEAN PLATELET VOLUME (test code = MPV) 12.9 fL 6.7-11.0 H NEUTROPHIL % (test code = NT%) 79.8 % 39.0-69.0 H IMMATURE GRANULOCYTE % (test code = IG%) 0.7 % 0.0-5.0 N LYMPHOCYTE % (test code = LY%) 10.1 % 25.0-55.0 L MONOCYTE % (test code = MO%) 7.3 % 0.0-10.0 N EOSINOPHIL % (test code = EO%) 1.8 % 0.0-5.0 N BASOPHIL % (test code = BA%) 0.3 % 0.0-1.0 N NUCLEATED RBC % (test code = NRBC%) 0.0 % 0-0 N NEUTROPHIL # (test code = NT#) 8.58 K/mm3 1.8-7.7 H IMMATURE GRANULOCYTE # (test code = IG#) 0.07 x10 3/uL 0-0.03 H LYMPHOCYTE # (test code = LY#) 1.09 K/mm3 1.0-5.0 N MONOCYTE # (test code = MO#) 0.78 K/mm3 0-0.8 N EOSINOPHIL # (test code = EO#) 0.19 K/mm3 0.0-0.5 N BASOPHIL # (test code = BA#) 0.03 K/mm3 0.0-0.2 N NUCLEATED RBC # (test code = NRBC#) 0.00 K/mm3 0.0-0.1 N MANUAL DIFF REQUIRED (test code = MDIFF) NO, ONLY SCAN NEEDED DIFFERENTIAL [id number] 06:23:00* Test Item Value Reference Range Interpretation Comments STAIN ACCEPTABILITY (test code = STN ACCEPTABLE) STAIN ACCEPTABLE POLYCHROMASIA (test code = POLC) 1+ POIKILOCYTOSIS (test code = POIK) 1+ ANISOCYTOSIS (test code = ANISO) 1+ OVALOCYTES (test code = OVAL) 1+ MORPHOLOGY COMMENT (test code = MOC) TEST NOT PERFORMED PLATELET ESTIMATE (test code = PLTEST) DECREASED PLATELET MORPHOLOGY (test code = PLTMORPH) GIANT PLATELETS SEEN CBC W/AUTO [id number] 05:46:00* Test Item Value Reference Range Interpretation Comments WHITE BLOOD CELL (test code = WBC) 10.7 K/mm3 4.5-12.5 N RED BLOOD CELL (test code = RBC) 2.87 mill/mm3 3.7-5.2 L HEMOGLOBIN (test code = HGB) 8.5 gram/dL 11.5-15.5 L HEMATOCRIT (test code = HCT) 26.5 % 36.0-46.0 L MEAN CELL VOLUME (test code = MCV) 92.3 fL 80-98 N MEAN CELL HGB (test code = MCH) 29.6 picogram 27.0-33.0 N MEAN CELL HGB CONCETRATION (test code = MCHC) 32.1 gram/dL 33.0-36. 0 L RED CELL DISTRIBUTION WIDTH (test code = RDW) 17.1 % 11.6-16. 2 H RED CELL DISTRIBUTION WIDTH SD (test code = RDW-SD) 57.3 fL 37 .0-51.0 H PLATELET COUNT (test code = PLT) 65 K/mm3 150-450 L MEAN PLATELET VOLUME (test code = MPV) 12.9 fL 6.7-11.0 H NEUTROPHIL % (test code = NT%) 79.8 % 39.0-69.0 H IMMATURE GRANULOCYTE % (test code = IG%) 0.7 % 0.0-5.0 N LYMPHOCYTE % (test code = LY%) 10.1 % 25.0-55.0 L MONOCYTE % (test code = MO%) 7.3 % 0.0-10.0 N EOSINOPHIL % (test code = EO%) 1.8 % 0.0-5.0 N BASOPHIL % (test code = BA%) 0.3 % 0.0-1.0 N NUCLEATED RBC % (test code = NRBC%) 0.0 % 0-0 N NEUTROPHIL # (test code = NT#) 8.58 K/mm3 1.8-7.7 H IMMATURE GRANULOCYTE # (test code = IG#) 0.07 x10 3/uL 0-0.03 H LYMPHOCYTE # (test code = LY#) 1.09 K/mm3 1.0-5.0 N MONOCYTE # (test code = MO#) 0.78 K/mm3 0-0.8 N EOSINOPHIL # (test code = EO#) 0.19 K/mm3 0.0-0.5 N BASOPHIL # (test code = BA#) 0.03 K/mm3 0.0-0.2 N NUCLEATED RBC # (test code = NRBC#) 0.00 K/mm3 0.0-0.1 N MANUAL DIFF REQUIRED (test code = MDIFF) NO, ONLY SCAN NEEDED DIFFERENTIAL [id number] 05:46:00* Test Item Value Reference Range Interpretation Comments STAIN ACCEPTABILITY (test code = STN ACCEPTABLE) CABOT RINGS (test code = CAB) MORPHOLOGY COMMENT (test code = MOC) PLATELET ESTIMATE (test code = PLTEST) PLATELET MORPHOLOGY (test code = PLTMORPH) CBC W/AUTO [id number] 05:46:00* Test Item Value Reference Range Interpretation Comments WHITE BLOOD CELL (test code = WBC) 10.7 K/mm3 4.5-12.5 N RED BLOOD CELL (test code = RBC) 2.87 mill/mm3 3.7-5.2 L HEMOGLOBIN (test code = HGB) 8.5 gram/dL 11.5-15.5 L HEMATOCRIT (test code = HCT) 26.5 % 36.0-46.0 L MEAN CELL VOLUME (test code = MCV) 92.3 fL 80-98 N MEAN CELL HGB (test code = MCH) 29.6 picogram 27.0-33.0 N MEAN CELL HGB CONCETRATION (test code = MCHC) 32.1 gram/dL 33.0-36. 0 L RED CELL DISTRIBUTION WIDTH (test code = RDW) 17.1 % 11.6-16. 2 H RED CELL DISTRIBUTION WIDTH SD (test code = RDW-SD) 57.3 fL 37 .0-51.0 H PLATELET COUNT (test code = PLT) 65 K/mm3 150-450 L MEAN PLATELET VOLUME (test code = MPV) 12.9 fL 6.7-11.0 H NEUTROPHIL % (test code = NT%) 79.8 % 39.0-69.0 H IMMATURE GRANULOCYTE % (test code = IG%) 0.7 % 0.0-5.0 N LYMPHOCYTE % (test code = LY%) 10.1 % 25.0-55.0 L MONOCYTE % (test code = MO%) 7.3 % 0.0-10.0 N EOSINOPHIL % (test code = EO%) 1.8 % 0.0-5.0 N BASOPHIL % (test code = BA%) 0.3 % 0.0-1.0 N NUCLEATED RBC % (test code = NRBC%) 0.0 % 0-0 N NEUTROPHIL # (test code = NT#) 8.58 K/mm3 1.8-7.7 H IMMATURE GRANULOCYTE # (test code = IG#) 0.07 x10 3/uL 0-0.03 H LYMPHOCYTE # (test code = LY#) 1.09 K/mm3 1.0-5.0 N MONOCYTE # (test code = MO#) 0.78 K/mm3 0-0.8 N EOSINOPHIL # (test code = EO#) 0.19 K/mm3 0.0-0.5 N BASOPHIL # (test code = BA#) 0.03 K/mm3 0.0-0.2 N NUCLEATED RBC # (test code = NRBC#) 0.00 K/mm3 0.0-0.1 N MANUAL DIFF REQUIRED (test code = MDIFF) NO, ONLY SCAN NEEDED DIFFERENTIAL [id number] 05:46:00* Test Item Value Reference Range Interpretation Comments STAIN ACCEPTABILITY (test code = STN ACCEPTABLE) CABOT RINGS (test code = CAB) MORPHOLOGY COMMENT (test code = MOC) PLATELET ESTIMATE (test code = PLTEST) PLATELET MORPHOLOGY (test code = PLTMORPH) CBC W/AUTO [id number] 05:46:00* Test Item Value Reference Range Interpretation Comments WHITE BLOOD CELL (test code = WBC) 10.7 K/mm3 4.5-12.5 N RED BLOOD CELL (test code = RBC) 2.87 mill/mm3 3.7-5.2 L HEMOGLOBIN (test code = HGB) 8.5 gram/dL 11.5-15.5 L HEMATOCRIT (test code = HCT) 26.5 % 36.0-46.0 L MEAN CELL VOLUME (test code = MCV) 92.3 fL 80-98 N MEAN CELL HGB (test code = MCH) 29.6 picogram 27.0-33.0 N MEAN CELL HGB CONCETRATION (test code = MCHC) 32.1 gram/dL 33.0-36. 0 L RED CELL DISTRIBUTION WIDTH (test code = RDW) 17.1 % 11.6-16. 2 H RED CELL DISTRIBUTION WIDTH SD (test code = RDW-SD) 57.3 fL 37 .0-51.0 H PLATELET COUNT (test code = PLT) 65 K/mm3 150-450 L MEAN PLATELET VOLUME (test code = MPV) 12.9 fL 6.7-11.0 H NEUTROPHIL % (test code = NT%) 79.8 % 39.0-69.0 H IMMATURE GRANULOCYTE % (test code = IG%) 0.7 % 0.0-5.0 N LYMPHOCYTE % (test code = LY%) 10.1 % 25.0-55.0 L MONOCYTE % (test code = MO%) 7.3 % 0.0-10.0 N EOSINOPHIL % (test code = EO%) 1.8 % 0.0-5.0 N BASOPHIL % (test code = BA%) 0.3 % 0.0-1.0 N NUCLEATED RBC % (test code = NRBC%) 0.0 % 0-0 N NEUTROPHIL # (test code = NT#) 8.58 K/mm3 1.8-7.7 H IMMATURE GRANULOCYTE # (test code = IG#) 0.07 x10 3/uL 0-0.03 H LYMPHOCYTE # (test code = LY#) 1.09 K/mm3 1.0-5.0 N MONOCYTE # (test code = MO#) 0.78 K/mm3 0-0.8 N EOSINOPHIL # (test code = EO#) 0.19 K/mm3 0.0-0.5 N BASOPHIL # (test code = BA#) 0.03 K/mm3 0.0-0.2 N NUCLEATED RBC # (test code = NRBC#) 0.00 K/mm3 0.0-0.1 N MANUAL DIFF REQUIRED (test code = MDIFF) NO, ONLY SCAN NEEDED DIFFERENTIAL [id number] 05:46:00* Test Item Value Reference Range Interpretation Comments STAIN ACCEPTABILITY (test code = STN ACCEPTABLE) MORPHOLOGY COMMENT (test code = MOC) PLATELET ESTIMATE (test code = PLTEST) PLATELET MORPHOLOGY (test code = PLTMORPH) CBC W/AUTO [id number] 05:46:00* Test Item Value Reference Range Interpretation Comments WHITE BLOOD CELL (test code = WBC) 10.7 K/mm3 4.5-12.5 N RED BLOOD CELL (test code = RBC) 2.87 mill/mm3 3.7-5.2 L HEMOGLOBIN (test code = HGB) 8.5 gram/dL 11.5-15.5 L HEMATOCRIT (test code = HCT) 26.5 % 36.0-46.0 L MEAN CELL VOLUME (test code = MCV) 92.3 fL 80-98 N MEAN CELL HGB (test code = MCH) 29.6 picogram 27.0-33.0 N MEAN CELL HGB CONCETRATION (test code = MCHC) 32.1 gram/dL 33.0-36. 0 L RED CELL DISTRIBUTION WIDTH (test code = RDW) 17.1 % 11.6-16. 2 H RED CELL DISTRIBUTION WIDTH SD (test code = RDW-SD) 57.3 fL 37 .0-51.0 H PLATELET COUNT (test code = PLT) 65 K/mm3 150-450 L MEAN PLATELET VOLUME (test code = MPV) 12.9 fL 6.7-11.0 H NEUTROPHIL % (test code = NT%) 79.8 % 39.0-69.0 H IMMATURE GRANULOCYTE % (test code = IG%) 0.7 % 0.0-5.0 N LYMPHOCYTE % (test code = LY%) 10.1 % 25.0-55.0 L MONOCYTE % (test code = MO%) 7.3 % 0.0-10.0 N EOSINOPHIL % (test code = EO%) 1.8 % 0.0-5.0 N BASOPHIL % (test code = BA%) 0.3 % 0.0-1.0 N NUCLEATED RBC % (test code = NRBC%) 0.0 % 0-0 N NEUTROPHIL # (test code = NT#) 8.58 K/mm3 1.8-7.7 H IMMATURE GRANULOCYTE # (test code = IG#) 0.07 x10 3/uL 0-0.03 H LYMPHOCYTE # (test code = LY#) 1.09 K/mm3 1.0-5.0 N MONOCYTE # (test code = MO#) 0.78 K/mm3 0-0.8 N EOSINOPHIL # (test code = EO#) 0.19 K/mm3 0.0-0.5 N BASOPHIL # (test code = BA#) 0.03 K/mm3 0.0-0.2 N NUCLEATED RBC # (test code = NRBC#) 0.00 K/mm3 0.0-0.1 N MANUAL DIFF REQUIRED (test code = MDIFF) NO, ONLY SCAN NEEDED DIFFERENTIAL [id number] 05:46:00* Test Item Value Reference Range Interpretation Comments STAIN ACCEPTABILITY (test code = STN ACCEPTABLE) CABOT RINGS (test code = CAB) MORPHOLOGY COMMENT (test code = MOC) PLATELET ESTIMATE (test code = PLTEST) PLATELET MORPHOLOGY (test code = PLTMORPH) [id number] 20:41:00* Test Item Value Reference Range Interpretation Comments GLUBED (test code = GLUBED) 150 mg/dL 74-106 H Performed by certified panel raiser operator at [facility] [id number] 16:34:00* Test Item Value Reference Range Interpretation Comments GLUBED (test code = GLUBED) 159 mg/dL 74-106 H Performed by certified panel raiser operator at [facility] [id number] 12:42:00* Test Item Value Reference Range Interpretation Comments GLUBED (test code = GLUBED) 166 mg/dL 74-106 H Performed by certified panel raiser operator at [facility] [id number] 08:17:00* Test Item Value Reference Range Interpretation Comments GLUBED (test code = GLUBED) 147 mg/dL 74-106 H Performed by certified panel raiser operator at [facility] AB HEPATITIS B [id number] 08:10:00* Test Item Value Reference Range Interpretation Comments AB HEPATITIS B SURFACE (test code = HBSAB) Non Reactive () Non Reactive: Inconsistent with immunity, less than 10 mIU/mL Reactive: Consistent with immunity, greater than 9.9 mIU/mLPerformed At: [facility] [id number] [place], [place] [id number] Kade Arteaga MD Ph:[phone] CBC W/AUTO [id number] 05:27:00* Test Item Value Reference Range Interpretation Comments WHITE BLOOD CELL (test code = WBC) 13.1 K/mm3 4.5-12.5 H RED BLOOD CELL (test code = RBC) 3.03 mill/mm3 3.7-5.2 L HEMOGLOBIN (test code = HGB) 8.9 gram/dL 11.5-15.5 L HEMATOCRIT (test code = HCT) 27.4 % 36.0-46.0 L MEAN CELL VOLUME (test code = MCV) 90.4 fL 80-98 N MEAN CELL HGB (test code = MCH) 29.4 picogram 27.0-33.0 N MEAN CELL HGB CONCETRATION (test code = MCHC) 32.5 gram/dL 33.0-36. 0 L RED CELL DISTRIBUTION WIDTH (test code = RDW) 17.4 % 11.6-16. 2 H RED CELL DISTRIBUTION WIDTH SD (test code = RDW-SD) 57.7 fL 37 .0-51.0 H PLATELET COUNT (test code = PLT) 78 K/mm3 150-450 L RESULT VERIFIED BY REPEAT ANALYSIS MEAN PLATELET VOLUME (test code = MPV) 12.1 fL 6.7-11.0 H NEUTROPHIL % (test code = NT%) 77.3 % 39.0-69.0 H IMMATURE GRANULOCYTE % (test code = IG%) 0.8 % 0.0-5.0 N LYMPHOCYTE % (test code = LY%) 13.0 % 25.0-55.0 L MONOCYTE % (test code = MO%) 7.9 % 0.0-10.0 N EOSINOPHIL % (test code = EO%) 0.6 % 0.0-5.0 N BASOPHIL % (test code = BA%) 0.4 % 0.0-1.0 N NUCLEATED RBC % (test code = NRBC%) 0.2 % 0-0 H NEUTROPHIL # (test code = NT#) 10.14 K/mm3 1.8-7.7 H IMMATURE GRANULOCYTE # (test code = IG#) 0.10 x10 3/uL 0-0.03 H LYMPHOCYTE # (test code = LY#) 1.70 K/mm3 1.0-5.0 N MONOCYTE # (test code = MO#) 1.04 K/mm3 0-0.8 H EOSINOPHIL # (test code = EO#) 0.08 K/mm3 0.0-0.5 N BASOPHIL # (test code = BA#) 0.05 K/mm3 0.0-0.2 N NUCLEATED RBC # (test code = NRBC#) 0.03 K/mm3 0.0-0.1 N MANUAL DIFF REQUIRED (test code = MDIFF) NO, ONLY SCAN NEEDED DIFFERENTIAL [id number] 05:27:00* Test Item Value Reference Range Interpretation Comments STAIN ACCEPTABILITY (test code = STN ACCEPTABLE) STAIN ACCEPTABLE ANISOCYTOSIS (test code = ANISO) 1+ MORPHOLOGY COMMENT (test code = MOC) TEST NOT PERFORMED PLATELET ESTIMATE (test code = PLTEST) DECREASED PLATELET MORPHOLOGY (test code = PLTMORPH) NORMAL CBC W/AUTO [id number] 05:02:00* Test Item Value Reference Range Interpretation Comments WHITE BLOOD CELL (test code = WBC) 13.1 K/mm3 4.5-12.5 H RED BLOOD CELL (test code = RBC) 3.03 mill/mm3 3.7-5.2 L HEMOGLOBIN (test code = HGB) 8.9 gram/dL 11.5-15.5 L HEMATOCRIT (test code = HCT) 27.4 % 36.0-46.0 L MEAN CELL VOLUME (test code = MCV) 90.4 fL 80-98 N MEAN CELL HGB (test code = MCH) 29.4 picogram 27.0-33.0 N MEAN CELL HGB CONCETRATION (test code = MCHC) 32.5 gram/dL 33.0-36. 0 L RED CELL DISTRIBUTION WIDTH (test code = RDW) 17.4 % 11.6-16. 2 H RED CELL DISTRIBUTION WIDTH SD (test code = RDW-SD) 57.7 fL 37 .0-51.0 H PLATELET COUNT (test code = PLT) 78 K/mm3 150-450 L RESULT VERIFIED BY REPEAT ANALYSIS MEAN PLATELET VOLUME (test code = MPV) 12.1 fL 6.7-11.0 H NEUTROPHIL % (test code = NT%) 77.3 % 39.0-69.0 H IMMATURE GRANULOCYTE % (test code = IG%) 0.8 % 0.0-5.0 N LYMPHOCYTE % (test code = LY%) 13.0 % 25.0-55.0 L MONOCYTE % (test code = MO%) 7.9 % 0.0-10.0 N EOSINOPHIL % (test code = EO%) 0.6 % 0.0-5.0 N BASOPHIL % (test code = BA%) 0.4 % 0.0-1.0 N NUCLEATED RBC % (test code = NRBC%) 0.2 % 0-0 H NEUTROPHIL # (test code = NT#) 10.14 K/mm3 1.8-7.7 H IMMATURE GRANULOCYTE # (test code = IG#) 0.10 x10 3/uL 0-0.03 H LYMPHOCYTE # (test code = LY#) 1.70 K/mm3 1.0-5.0 N MONOCYTE # (test code = MO#) 1.04 K/mm3 0-0.8 H EOSINOPHIL # (test code = EO#) 0.08 K/mm3 0.0-0.5 N BASOPHIL # (test code = BA#) 0.05 K/mm3 0.0-0.2 N NUCLEATED RBC # (test code = NRBC#) 0.03 K/mm3 0.0-0.1 N MANUAL DIFF REQUIRED (test code = MDIFF) NO, ONLY SCAN NEEDED DIFFERENTIAL [id number] 05:02:00* Test Item Value Reference Range Interpretation Comments STAIN ACCEPTABILITY (test code = STN ACCEPTABLE) CABOT RINGS (test code = CAB) MORPHOLOGY COMMENT (test code = MOC) PLATELET ESTIMATE (test code = PLTEST) PLATELET MORPHOLOGY (test code = PLTMORPH) CBC W/AUTO [id number] 05:02:00* Test Item Value Reference Range Interpretation Comments WHITE BLOOD CELL (test code = WBC) 13.1 K/mm3 4.5-12.5 H RED BLOOD CELL (test code = RBC) 3.03 mill/mm3 3.7-5.2 L HEMOGLOBIN (test code = HGB) 8.9 gram/dL 11.5-15.5 L HEMATOCRIT (test code = HCT) 27.4 % 36.0-46.0 L MEAN CELL VOLUME (test code = MCV) 90.4 fL 80-98 N MEAN CELL HGB (test code = MCH) 29.4 picogram 27.0-33.0 N MEAN CELL HGB CONCETRATION (test code = MCHC) 32.5 gram/dL 33.0-36. 0 L RED CELL DISTRIBUTION WIDTH (test code = RDW) 17.4 % 11.6-16. 2 H RED CELL DISTRIBUTION WIDTH SD (test code = RDW-SD) 57.7 fL 37 .0-51.0 H PLATELET COUNT (test code = PLT) 78 K/mm3 150-450 L RESULT VERIFIED BY REPEAT ANALYSIS MEAN PLATELET VOLUME (test code = MPV) 12.1 fL 6.7-11.0 H NEUTROPHIL % (test code = NT%) 77.3 % 39.0-69.0 H IMMATURE GRANULOCYTE % (test code = IG%) 0.8 % 0.0-5.0 N LYMPHOCYTE % (test code = LY%) 13.0 % 25.0-55.0 L MONOCYTE % (test code = MO%) 7.9 % 0.0-10.0 N EOSINOPHIL % (test code = EO%) 0.6 % 0.0-5.0 N BASOPHIL % (test code = BA%) 0.4 % 0.0-1.0 N NUCLEATED RBC % (test code = NRBC%) 0.2 % 0-0 H NEUTROPHIL # (test code = NT#) 10.14 K/mm3 1.8-7.7 H IMMATURE GRANULOCYTE # (test code = IG#) 0.10 x10 3/uL 0-0.03 H LYMPHOCYTE # (test code = LY#) 1.70 K/mm3 1.0-5.0 N MONOCYTE # (test code = MO#) 1.04 K/mm3 0-0.8 H EOSINOPHIL # (test code = EO#) 0.08 K/mm3 0.0-0.5 N BASOPHIL # (test code = BA#) 0.05 K/mm3 0.0-0.2 N NUCLEATED RBC # (test code = NRBC#) 0.03 K/mm3 0.0-0.1 N MANUAL DIFF REQUIRED (test code = MDIFF) NO, ONLY SCAN NEEDED DIFFERENTIAL [id number] 05:02:00* Test Item Value Reference Range Interpretation Comments STAIN ACCEPTABILITY (test code = STN ACCEPTABLE) MORPHOLOGY COMMENT (test code = MOC) PLATELET ESTIMATE (test code = PLTEST) PLATELET MORPHOLOGY (test code = PLTMORPH) CBC W/AUTO [id number] 05:02:00* Test Item Value Reference Range Interpretation Comments WHITE BLOOD CELL (test code = WBC) 13.1 K/mm3 4.5-12.5 H RED BLOOD CELL (test code = RBC) 3.03 mill/mm3 3.7-5.2 L HEMOGLOBIN (test code = HGB) 8.9 gram/dL 11.5-15.5 L HEMATOCRIT (test code = HCT) 27.4 % 36.0-46.0 L MEAN CELL VOLUME (test code = MCV) 90.4 fL 80-98 N MEAN CELL HGB (test code = MCH) 29.4 picogram 27.0-33.0 N MEAN CELL HGB CONCETRATION (test code = MCHC) 32.5 gram/dL 33.0-36. 0 L RED CELL DISTRIBUTION WIDTH (test code = RDW) 17.4 % 11.6-16. 2 H RED CELL DISTRIBUTION WIDTH SD (test code = RDW-SD) 57.7 fL 37 .0-51.0 H PLATELET COUNT (test code = PLT) 78 K/mm3 150-450 L RESULT VERIFIED BY REPEAT ANALYSIS MEAN PLATELET VOLUME (test code = MPV) 12.1 fL 6.7-11.0 H NEUTROPHIL % (test code = NT%) 77.3 % 39.0-69.0 H IMMATURE GRANULOCYTE % (test code = IG%) 0.8 % 0.0-5.0 N LYMPHOCYTE % (test code = LY%) 13.0 % 25.0-55.0 L MONOCYTE % (test code = MO%) 7.9 % 0.0-10.0 N EOSINOPHIL % (test code = EO%) 0.6 % 0.0-5.0 N BASOPHIL % (test code = BA%) 0.4 % 0.0-1.0 N NUCLEATED RBC % (test code = NRBC%) 0.2 % 0-0 H NEUTROPHIL # (test code = NT#) 10.14 K/mm3 1.8-7.7 H IMMATURE GRANULOCYTE # (test code = IG#) 0.10 x10 3/uL 0-0.03 H LYMPHOCYTE # (test code = LY#) 1.70 K/mm3 1.0-5.0 N MONOCYTE # (test code = MO#) 1.04 K/mm3 0-0.8 H EOSINOPHIL # (test code = EO#) 0.08 K/mm3 0.0-0.5 N BASOPHIL # (test code = BA#) 0.05 K/mm3 0.0-0.2 N NUCLEATED RBC # (test code = NRBC#) 0.03 K/mm3 0.0-0.1 N MANUAL DIFF REQUIRED (test code = MDIFF) NO, ONLY SCAN NEEDED DIFFERENTIAL [id number] 05:02:00* Test Item Value Reference Range Interpretation Comments STAIN ACCEPTABILITY (test code = STN ACCEPTABLE) MORPHOLOGY COMMENT (test code = MOC) PLATELET ESTIMATE (test code = PLTEST) PLATELET MORPHOLOGY (test code = PLTMORPH) CBC W/AUTO [id number] 05:02:00* Test Item Value Reference Range Interpretation Comments WHITE BLOOD CELL (test code = WBC) 13.1 K/mm3 4.5-12.5 H RED BLOOD CELL (test code = RBC) 3.03 mill/mm3 3.7-5.2 L HEMOGLOBIN (test code = HGB) 8.9 gram/dL 11.5-15.5 L HEMATOCRIT (test code = HCT) 27.4 % 36.0-46.0 L MEAN CELL VOLUME (test code = MCV) 90.4 fL 80-98 N MEAN CELL HGB (test code = MCH) 29.4 picogram 27.0-33.0 N MEAN CELL HGB CONCETRATION (test code = MCHC) 32.5 gram/dL 33.0-36. 0 L RED CELL DISTRIBUTION WIDTH (test code = RDW) 17.4 % 11.6-16. 2 H RED CELL DISTRIBUTION WIDTH SD (test code = RDW-SD) 57.7 fL 37 .0-51.0 H PLATELET COUNT (test code = PLT) 78 K/mm3 150-450 L RESULT VERIFIED BY REPEAT ANALYSIS MEAN PLATELET VOLUME (test code = MPV) 12.1 fL 6.7-11.0 H NEUTROPHIL % (test code = NT%) 77.3 % 39.0-69.0 H IMMATURE GRANULOCYTE % (test code = IG%) 0.8 % 0.0-5.0 N LYMPHOCYTE % (test code = LY%) 13.0 % 25.0-55.0 L MONOCYTE % (test code = MO%) 7.9 % 0.0-10.0 N EOSINOPHIL % (test code = EO%) 0.6 % 0.0-5.0 N BASOPHIL % (test code = BA%) 0.4 % 0.0-1.0 N NUCLEATED RBC % (test code = NRBC%) 0.2 % 0-0 H NEUTROPHIL # (test code = NT#) 10.14 K/mm3 1.8-7.7 H IMMATURE GRANULOCYTE # (test code = IG#) 0.10 x10 3/uL 0-0.03 H LYMPHOCYTE # (test code = LY#) 1.70 K/mm3 1.0-5.0 N MONOCYTE # (test code = MO#) 1.04 K/mm3 0-0.8 H EOSINOPHIL # (test code = EO#) 0.08 K/mm3 0.0-0.5 N BASOPHIL # (test code = BA#) 0.05 K/mm3 0.0-0.2 N NUCLEATED RBC # (test code = NRBC#) 0.03 K/mm3 0.0-0.1 N MANUAL DIFF REQUIRED (test code = MDIFF) NO, ONLY SCAN NEEDED DIFFERENTIAL [id number] 05:02:00* Test Item Value Reference Range Interpretation Comments STAIN ACCEPTABILITY (test code = STN ACCEPTABLE) CABOT RINGS (test code = CAB) MORPHOLOGY COMMENT (test code = MOC) PLATELET ESTIMATE (test code = PLTEST) PLATELET MORPHOLOGY (test code = PLTMORPH) [id number] 21:28:00* Test Item Value Reference Range Interpretation Comments D-DIMER (test code = DDIMER) 47180.00 ng/mLFEU 0-500 HH Results called to [id number] by VJose ManuelLAB.KP1 09/11/19 2123Critical results verified and read back by Nurse? YClinical Cut-off value for D-Dimer is 500 ng/mL FEU. Comment: The [employer] D-Dimer assay is intended for use asan aid in the diagnosis of venous thromboembolism (VTE)[deep vein thrombosis (DVT) or pulmonary embolism (PE)].The measurement of D-Dimer should not be used as an aid inthe diagnosis of VTE, in patient with: -Therapeutic dose anticoagulant therapy for >24 hours - Fibrinolytic therapy within previous 7 days -Trauma or surgery within previous 4 weeks -Disseminated malignancies -Aortic aneurysm -Sepsis, severe infections, pneumonia, severe skin infections -Liver cirrhosis - [id number] 20:43:00* Test Item Value Reference Range Interpretation Comments GLUBED (test code = GLUBED) 191 mg/dL 74-106 H Performed by certified panel raiser operator at [facility] CBC W/AUTO [id number] 18:11:00* Test Item Value Reference Range Interpretation Comments WHITE BLOOD CELL (test code = WBC) 15.9 K/mm3 4.5-12.5 H RED BLOOD CELL (test code = RBC) 3.45 mill/mm3 3.7-5.2 L HEMOGLOBIN (test code = HGB) 9.9 gram/dL 11.5-15.5 L RESULT VERIFIED BY REPEAT ANALYSIS HEMATOCRIT (test code = HCT) 31.5 % 36.0-46.0 L MEAN CELL VOLUME (test code = MCV) 91.3 fL 80-98 N MEAN CELL HGB (test code = MCH) 28.7 picogram 27.0-33.0 N MEAN CELL HGB CONCETRATION (test code = MCHC) 31.4 gram/dL 33.0-36. 0 L RED CELL DISTRIBUTION WIDTH (test code = RDW) 16.8 % 11.6-16. 2 H RED CELL DISTRIBUTION WIDTH SD (test code = RDW-SD) 55.5 fL 37 .0-51.0 H PLATELET COUNT (test code = PLT) 38 K/mm3 150-450 LL Results called to [id number] by The Beauty TribeLAB.KP1 09/11/19 1726Critical results verified and read back by Nurse? Y MEAN PLATELET VOLUME (test code = MPV) TEST NOT PERFORMED fL 6.7-11 .0 Unable to determine due to platelet abnormality , please seethe platelet morphology. NEUTROPHIL % (test code = NT%) 86.4 % 39.0-69.0 H IMMATURE GRANULOCYTE % (test code = IG%) 1.0 % 0.0-5.0 N LYMPHOCYTE % (test code = LY%) 6.2 % 25.0-55.0 L MONOCYTE % (test code = MO%) 6.0 % 0.0-10.0 N EOSINOPHIL % (test code = EO%) 0.1 % 0.0-5.0 N BASOPHIL % (test code = BA%) 0.3 % 0.0-1.0 N NUCLEATED RBC % (test code = NRBC%) 0.1 % 0-0 H NEUTROPHIL # (test code = NT#) 13.76 K/mm3 1.8-7.7 H IMMATURE GRANULOCYTE # (test code = IG#) 0.16 x10 3/uL 0-0.03 H LYMPHOCYTE # (test code = LY#) 0.99 K/mm3 1.0-5.0 L MONOCYTE # (test code = MO#) 0.95 K/mm3 0-0.8 H EOSINOPHIL # (test code = EO#) 0.01 K/mm3 0.0-0.5 N BASOPHIL # (test code = BA#) 0.05 K/mm3 0.0-0.2 N NUCLEATED RBC # (test code = NRBC#) 0.02 K/mm3 0.0-0.1 N MANUAL DIFF REQUIRED (test code = MDIFF) NO, ONLY SCAN NEEDED DIFFERENTIAL [id number] 18:11:00* Test Item Value Reference Range Interpretation Comments STAIN ACCEPTABILITY (test code = STN ACCEPTABLE) STAIN ACCEPTABLE ANISOCYTOSIS (test code = ANISO) 1+ PLATELET ESTIMATE (test code = PLTEST) DECREASED PLATELET MORPHOLOGY (test code = PLTMORPH) SIZE VARIABLE CBC W/AUTO [id number] 17:28:00* Test Item Value Reference Range Interpretation Comments WHITE BLOOD CELL (test code = WBC) 15.9 K/mm3 4.5-12.5 H RED BLOOD CELL (test code = RBC) 3.45 mill/mm3 3.7-5.2 L HEMOGLOBIN (test code = HGB) 9.9 gram/dL 11.5-15.5 L RESULT VERIFIED BY REPEAT ANALYSIS HEMATOCRIT (test code = HCT) 31.5 % 36.0-46.0 L MEAN CELL VOLUME (test code = MCV) 91.3 fL 80-98 N MEAN CELL HGB (test code = MCH) 28.7 picogram 27.0-33.0 N MEAN CELL HGB CONCETRATION (test code = MCHC) 31.4 gram/dL 33.0-36. 0 L RED CELL DISTRIBUTION WIDTH (test code = RDW) 16.8 % 11.6-16. 2 H RED CELL DISTRIBUTION WIDTH SD (test code = RDW-SD) 55.5 fL 37 .0-51.0 H PLATELET COUNT (test code = PLT) 38 K/mm3 150-450 LL Results called to [id number] by [employer].KP1 09/11/19 1726Critical results verified and read back by Nurse? Y MEAN PLATELET VOLUME (test code = MPV) TEST NOT PERFORMED fL 6.7-11 .0 Unable to determine due to platelet abnormality , please seethe platelet morphology. NEUTROPHIL % (test code = NT%) 86.4 % 39.0-69.0 H IMMATURE GRANULOCYTE % (test code = IG%) 1.0 % 0.0-5.0 N LYMPHOCYTE % (test code = LY%) 6.2 % 25.0-55.0 L MONOCYTE % (test code = MO%) 6.0 % 0.0-10.0 N EOSINOPHIL % (test code = EO%) 0.1 % 0.0-5.0 N BASOPHIL % (test code = BA%) 0.3 % 0.0-1.0 N NUCLEATED RBC % (test code = NRBC%) 0.1 % 0-0 H NEUTROPHIL # (test code = NT#) 13.76 K/mm3 1.8-7.7 H IMMATURE GRANULOCYTE # (test code = IG#) 0.16 x10 3/uL 0-0.03 H LYMPHOCYTE # (test code = LY#) 0.99 K/mm3 1.0-5.0 L MONOCYTE # (test code = MO#) 0.95 K/mm3 0-0.8 H EOSINOPHIL # (test code = EO#) 0.01 K/mm3 0.0-0.5 N BASOPHIL # (test code = BA#) 0.05 K/mm3 0.0-0.2 N NUCLEATED RBC # (test code = NRBC#) 0.02 K/mm3 0.0-0.1 N MANUAL DIFF REQUIRED (test code = MDIFF) NO, ONLY SCAN NEEDED DIFFERENTIAL [id number] 17:28:00* Test Item Value Reference Range Interpretation Comments STAIN ACCEPTABILITY (test code = STN ACCEPTABLE) CABOT RINGS (test code = CAB) MORPHOLOGY COMMENT (test code = MOC) PLATELET ESTIMATE (test code = PLTEST) PLATELET MORPHOLOGY (test code = PLTMORPH) CBC W/AUTO [id number] 17:28:00* Test Item Value Reference Range Interpretation Comments WHITE BLOOD CELL (test code = WBC) 15.9 K/mm3 4.5-12.5 H RED BLOOD CELL (test code = RBC) 3.45 mill/mm3 3.7-5.2 L HEMOGLOBIN (test code = HGB) 9.9 gram/dL 11.5-15.5 L RESULT VERIFIED BY REPEAT ANALYSIS HEMATOCRIT (test code = HCT) 31.5 % 36.0-46.0 L MEAN CELL VOLUME (test code = MCV) 91.3 fL 80-98 N MEAN CELL HGB (test code = MCH) 28.7 picogram 27.0-33.0 N MEAN CELL HGB CONCETRATION (test code = MCHC) 31.4 gram/dL 33.0-36. 0 L RED CELL DISTRIBUTION WIDTH (test code = RDW) 16.8 % 11.6-16. 2 H RED CELL DISTRIBUTION WIDTH SD (test code = RDW-SD) 55.5 fL 37 .0-51.0 H PLATELET COUNT (test code = PLT) 38 K/mm3 150-450 LL Results called to [id number] by VHapYak Interactive VideoLAB.KP1 09/11/19 1726Critical results verified and read back by Nurse? Y MEAN PLATELET VOLUME (test code = MPV) TEST NOT PERFORMED fL 6.7-11 .0 Unable to determine due to platelet abnormality , please seethe platelet morphology. NEUTROPHIL % (test code = NT%) 86.4 % 39.0-69.0 H IMMATURE GRANULOCYTE % (test code = IG%) 1.0 % 0.0-5.0 N LYMPHOCYTE % (test code = LY%) 6.2 % 25.0-55.0 L MONOCYTE % (test code = MO%) 6.0 % 0.0-10.0 N EOSINOPHIL % (test code = EO%) 0.1 % 0.0-5.0 N BASOPHIL % (test code = BA%) 0.3 % 0.0-1.0 N NUCLEATED RBC % (test code = NRBC%) 0.1 % 0-0 H NEUTROPHIL # (test code = NT#) 13.76 K/mm3 1.8-7.7 H IMMATURE GRANULOCYTE # (test code = IG#) 0.16 x10 3/uL 0-0.03 H LYMPHOCYTE # (test code = LY#) 0.99 K/mm3 1.0-5.0 L MONOCYTE # (test code = MO#) 0.95 K/mm3 0-0.8 H EOSINOPHIL # (test code = EO#) 0.01 K/mm3 0.0-0.5 N BASOPHIL # (test code = BA#) 0.05 K/mm3 0.0-0.2 N NUCLEATED RBC # (test code = NRBC#) 0.02 K/mm3 0.0-0.1 N MANUAL DIFF REQUIRED (test code = MDIFF) NO, ONLY SCAN NEEDED DIFFERENTIAL [id number] 17:28:00* Test Item Value Reference Range Interpretation Comments STAIN ACCEPTABILITY (test code = STN ACCEPTABLE) MORPHOLOGY COMMENT (test code = MOC) PLATELET ESTIMATE (test code = PLTEST) PLATELET MORPHOLOGY (test code = PLTMORPH) CBC W/AUTO [id number] 17:28:00* Test Item Value Reference Range Interpretation Comments WHITE BLOOD CELL (test code = WBC) 15.9 K/mm3 4.5-12.5 H RED BLOOD CELL (test code = RBC) 3.45 mill/mm3 3.7-5.2 L HEMOGLOBIN (test code = HGB) 9.9 gram/dL 11.5-15.5 L RESULT VERIFIED BY REPEAT ANALYSIS HEMATOCRIT (test code = HCT) 31.5 % 36.0-46.0 L MEAN CELL VOLUME (test code = MCV) 91.3 fL 80-98 N MEAN CELL HGB (test code = MCH) 28.7 picogram 27.0-33.0 N MEAN CELL HGB CONCETRATION (test code = MCHC) 31.4 gram/dL 33.0-36. 0 L RED CELL DISTRIBUTION WIDTH (test code = RDW) 16.8 % 11.6-16. 2 H RED CELL DISTRIBUTION WIDTH SD (test code = RDW-SD) 55.5 fL 37 .0-51.0 H PLATELET COUNT (test code = PLT) 38 K/mm3 150-450 LL Results called to [id number] by V.LAB.KP1 09/11/19 1726Critical results verified and read back by Nurse? Y MEAN PLATELET VOLUME (test code = MPV) TEST NOT PERFORMED fL 6.7-11 .0 Unable to determine due to platelet abnormality , please seethe platelet morphology. NEUTROPHIL % (test code = NT%) 86.4 % 39.0-69.0 H IMMATURE GRANULOCYTE % (test code = IG%) 1.0 % 0.0-5.0 N LYMPHOCYTE % (test code = LY%) 6.2 % 25.0-55.0 L MONOCYTE % (test code = MO%) 6.0 % 0.0-10.0 N EOSINOPHIL % (test code = EO%) 0.1 % 0.0-5.0 N BASOPHIL % (test code = BA%) 0.3 % 0.0-1.0 N NUCLEATED RBC % (test code = NRBC%) 0.1 % 0-0 H NEUTROPHIL # (test code = NT#) 13.76 K/mm3 1.8-7.7 H IMMATURE GRANULOCYTE # (test code = IG#) 0.16 x10 3/uL 0-0.03 H LYMPHOCYTE # (test code = LY#) 0.99 K/mm3 1.0-5.0 L MONOCYTE # (test code = MO#) 0.95 K/mm3 0-0.8 H EOSINOPHIL # (test code = EO#) 0.01 K/mm3 0.0-0.5 N BASOPHIL # (test code = BA#) 0.05 K/mm3 0.0-0.2 N NUCLEATED RBC # (test code = NRBC#) 0.02 K/mm3 0.0-0.1 N MANUAL DIFF REQUIRED (test code = MDIFF) NO, ONLY SCAN NEEDED DIFFERENTIAL [id number] 17:28:00* Test Item Value Reference Range Interpretation Comments STAIN ACCEPTABILITY (test code = STN ACCEPTABLE) MORPHOLOGY COMMENT (test code = MOC) PLATELET ESTIMATE (test code = PLTEST) PLATELET MORPHOLOGY (test code = PLTMORPH) CBC W/AUTO [id number] 17:28:00* Test Item Value Reference Range Interpretation Comments WHITE BLOOD CELL (test code = WBC) 15.9 K/mm3 4.5-12.5 H RED BLOOD CELL (test code = RBC) 3.45 mill/mm3 3.7-5.2 L HEMOGLOBIN (test code = HGB) 9.9 gram/dL 11.5-15.5 L RESULT VERIFIED BY REPEAT ANALYSIS HEMATOCRIT (test code = HCT) 31.5 % 36.0-46.0 L MEAN CELL VOLUME (test code = MCV) 91.3 fL 80-98 N MEAN CELL HGB (test code = MCH) 28.7 picogram 27.0-33.0 N MEAN CELL HGB CONCETRATION (test code = MCHC) 31.4 gram/dL 33.0-36. 0 L RED CELL DISTRIBUTION WIDTH (test code = RDW) 16.8 % 11.6-16. 2 H RED CELL DISTRIBUTION WIDTH SD (test code = RDW-SD) 55.5 fL 37 .0-51.0 H PLATELET COUNT (test code = PLT) 38 K/mm3 150-450 LL Results called to [id number] by The Beauty TribeLAB.KP1 09/11/19 1726Critical results verified and read back by Nurse? Y MEAN PLATELET VOLUME (test code = MPV) TEST NOT PERFORMED fL 6.7-11 .0 Unable to determine due to platelet abnormality , please seethe platelet morphology. NEUTROPHIL % (test code = NT%) 86.4 % 39.0-69.0 H IMMATURE GRANULOCYTE % (test code = IG%) 1.0 % 0.0-5.0 N LYMPHOCYTE % (test code = LY%) 6.2 % 25.0-55.0 L MONOCYTE % (test code = MO%) 6.0 % 0.0-10.0 N EOSINOPHIL % (test code = EO%) 0.1 % 0.0-5.0 N BASOPHIL % (test code = BA%) 0.3 % 0.0-1.0 N NUCLEATED RBC % (test code = NRBC%) 0.1 % 0-0 H NEUTROPHIL # (test code = NT#) 13.76 K/mm3 1.8-7.7 H IMMATURE GRANULOCYTE # (test code = IG#) 0.16 x10 3/uL 0-0.03 H LYMPHOCYTE # (test code = LY#) 0.99 K/mm3 1.0-5.0 L MONOCYTE # (test code = MO#) 0.95 K/mm3 0-0.8 H EOSINOPHIL # (test code = EO#) 0.01 K/mm3 0.0-0.5 N BASOPHIL # (test code = BA#) 0.05 K/mm3 0.0-0.2 N NUCLEATED RBC # (test code = NRBC#) 0.02 K/mm3 0.0-0.1 N MANUAL DIFF REQUIRED (test code = MDIFF) NO, ONLY SCAN NEEDED DIFFERENTIAL [id number] 17:28:00* Test Item Value Reference Range Interpretation Comments STAIN ACCEPTABILITY (test code = STN ACCEPTABLE) CABOT RINGS (test code = CAB) MORPHOLOGY COMMENT (test code = MOC) PLATELET ESTIMATE (test code = PLTEST) PLATELET MORPHOLOGY (test code = PLTMORPH) [id number] 16:35:00* Test Item Value Reference Range Interpretation Comments GLUBED (test code = GLUBED) 190 mg/dL 74-106 H Performed by certified panel raiser operator at [facility] CBC W/AUTO [id number] 11:43:00* Test Item Value Reference Range Interpretation Comments WHITE BLOOD CELL (test code = WBC) 15.2 K/mm3 4.5-12.5 H RED BLOOD CELL (test code = RBC) 1.90 mill/mm3 3.7-5.2 L HEMOGLOBIN (test code = HGB) 5.8 gram/dL 11.5-15.5 L HEMATOCRIT (test code = HCT) 18.4 % 36.0-46.0 LL Results called to [id number] by [employer]Pulse ElectronicsQ 09/11/19 1117Critical results verified and read back by Nurse? Y MEAN CELL VOLUME (test code = MCV) 96.8 fL 80-98 N MEAN CELL HGB (test code = MCH) 30.5 picogram 27.0-33.0 N MEAN CELL HGB CONCETRATION (test code = MCHC) 31.5 gram/dL 33.0-36. 0 L RED CELL DISTRIBUTION WIDTH (test code = RDW) 16.3 % 11.6-16. 2 H RED CELL DISTRIBUTION WIDTH SD (test code = RDW-SD) 56.9 fL 37 .0-51.0 H PLATELET COUNT (test code = PLT) 46 K/mm3 150-450 LL Results called to [id number] by [employer] [facility] TribeLAB.Pulse ElectronicsQ 09/11/19 1118Critical results verified and read back by Nurse? Y MEAN PLATELET VOLUME (test code = MPV) 14.2 fL 6.7-11.0 H NEUTROPHIL % (test code = NT%) 83.1 % 39.0-69.0 H IMMATURE GRANULOCYTE % (test code = IG%) 1.2 % 0.0-5.0 N LYMPHOCYTE % (test code = LY%) 9.0 % 25.0-55.0 L MONOCYTE % (test code = MO%) 6.0 % 0.0-10.0 N EOSINOPHIL % (test code = EO%) 0.4 % 0.0-5.0 N BASOPHIL % (test code = BA%) 0.3 % 0.0-1.0 N NUCLEATED RBC % (test code = NRBC%) 0.0 % 0-0 N NEUTROPHIL # (test code = NT#) 12.64 K/mm3 1.8-7.7 H IMMATURE GRANULOCYTE # (test code = IG#) 0.19 x10 3/uL 0-0.03 H LYMPHOCYTE # (test code = LY#) 1.37 K/mm3 1.0-5.0 N MONOCYTE # (test code = MO#) 0.91 K/mm3 0-0.8 H EOSINOPHIL # (test code = EO#) 0.06 K/mm3 0.0-0.5 N BASOPHIL # (test code = BA#) 0.04 K/mm3 0.0-0.2 N NUCLEATED RBC # (test code = NRBC#) 0.00 K/mm3 0.0-0.1 N MANUAL DIFF REQUIRED (test code = MDIFF) NO, ONLY SCAN NEEDED DIFFERENTIAL [id number] 11:43:00* Test Item Value Reference Range Interpretation Comments STAIN ACCEPTABILITY (test code = STN ACCEPTABLE) STAIN ACCEPTABLE POLYCHROMASIA (test code = POLC) 3+ POIKILOCYTOSIS (test code = POIK) 1+ ANISOCYTOSIS (test code = ANISO) 1+ PLATELET ESTIMATE (test code = PLTEST) DECREASED PLATELET MORPHOLOGY (test code = PLTMORPH) NORMAL CBC W/AUTO [id number] 11:18:00* Test Item Value Reference Range Interpretation Comments WHITE BLOOD CELL (test code = WBC) 15.2 K/mm3 4.5-12.5 H RED BLOOD CELL (test code = RBC) 1.90 mill/mm3 3.7-5.2 L HEMOGLOBIN (test code = HGB) 5.8 gram/dL 11.5-15.5 L HEMATOCRIT (test code = HCT) 18.4 % 36.0-46.0 LL Results called to [id number] by [employer].JQ 09/11/19 1117Critical results verified and read back by Nurse? Y MEAN CELL VOLUME (test code = MCV) 96.8 fL 80-98 N MEAN CELL HGB (test code = MCH) 30.5 picogram 27.0-33.0 N MEAN CELL HGB CONCETRATION (test code = MCHC) 31.5 gram/dL 33.0-36. 0 L RED CELL DISTRIBUTION WIDTH (test code = RDW) 16.3 % 11.6-16. 2 H RED CELL DISTRIBUTION WIDTH SD (test code = RDW-SD) 56.9 fL 37 .0-51.0 H PLATELET COUNT (test code = PLT) 46 K/mm3 150-450 LL Results called to [id number] by [employer] [facility] Tribe[facility].JQ 09/11/19 1118Critical results verified and read back by Nurse? Y MEAN PLATELET VOLUME (test code = MPV) 14.2 fL 6.7-11.0 H NEUTROPHIL % (test code = NT%) 83.1 % 39.0-69.0 H IMMATURE GRANULOCYTE % (test code = IG%) 1.2 % 0.0-5.0 N LYMPHOCYTE % (test code = LY%) 9.0 % 25.0-55.0 L MONOCYTE % (test code = MO%) 6.0 % 0.0-10.0 N EOSINOPHIL % (test code = EO%) 0.4 % 0.0-5.0 N BASOPHIL % (test code = BA%) 0.3 % 0.0-1.0 N NUCLEATED RBC % (test code = NRBC%) 0.0 % 0-0 N NEUTROPHIL # (test code = NT#) 12.64 K/mm3 1.8-7.7 H IMMATURE GRANULOCYTE # (test code = IG#) 0.19 x10 3/uL 0-0.03 H LYMPHOCYTE # (test code = LY#) 1.37 K/mm3 1.0-5.0 N MONOCYTE # (test code = MO#) 0.91 K/mm3 0-0.8 H EOSINOPHIL # (test code = EO#) 0.06 K/mm3 0.0-0.5 N BASOPHIL # (test code = BA#) 0.04 K/mm3 0.0-0.2 N NUCLEATED RBC # (test code = NRBC#) 0.00 K/mm3 0.0-0.1 N MANUAL DIFF REQUIRED (test code = MDIFF) NO, ONLY SCAN NEEDED DIFFERENTIAL [id number] 11:18:00* Test Item Value Reference Range Interpretation Comments STAIN ACCEPTABILITY (test code = STN ACCEPTABLE) CABOT RINGS (test code = CAB) MORPHOLOGY COMMENT (test code = MOC) PLATELET ESTIMATE (test code = PLTEST) PLATELET MORPHOLOGY (test code = PLTMORPH) CBC W/AUTO [id number] 11:18:00* Test Item Value Reference Range Interpretation Comments WHITE BLOOD CELL (test code = WBC) 15.2 K/mm3 4.5-12.5 H RED BLOOD CELL (test code = RBC) 1.90 mill/mm3 3.7-5.2 L HEMOGLOBIN (test code = HGB) 5.8 gram/dL 11.5-15.5 L HEMATOCRIT (test code = HCT) 18.4 % 36.0-46.0 LL Results called to [id number] by [facility] 09/11/19 1117Critical results verified and read back by Nurse? Y MEAN CELL VOLUME (test code = MCV) 96.8 fL 80-98 N MEAN CELL HGB (test code = MCH) 30.5 picogram 27.0-33.0 N MEAN CELL HGB CONCETRATION (test code = MCHC) 31.5 gram/dL 33.0-36. 0 L RED CELL DISTRIBUTION WIDTH (test code = RDW) 16.3 % 11.6-16. 2 H RED CELL DISTRIBUTION WIDTH SD (test code = RDW-SD) 56.9 fL 37 .0-51.0 H PLATELET COUNT (test code = PLT) 46 K/mm3 150-450 LL Results called to [id number] by [employer].JQ 09/11/19 1118Critical results verified and read back by Nurse? Y MEAN PLATELET VOLUME (test code = MPV) 14.2 fL 6.7-11.0 H NEUTROPHIL % (test code = NT%) 83.1 % 39.0-69.0 H IMMATURE GRANULOCYTE % (test code = IG%) 1.2 % 0.0-5.0 N LYMPHOCYTE % (test code = LY%) 9.0 % 25.0-55.0 L MONOCYTE % (test code = MO%) 6.0 % 0.0-10.0 N EOSINOPHIL % (test code = EO%) 0.4 % 0.0-5.0 N BASOPHIL % (test code = BA%) 0.3 % 0.0-1.0 N NUCLEATED RBC % (test code = NRBC%) 0.0 % 0-0 N NEUTROPHIL # (test code = NT#) 12.64 K/mm3 1.8-7.7 H IMMATURE GRANULOCYTE # (test code = IG#) 0.19 x10 3/uL 0-0.03 H LYMPHOCYTE # (test code = LY#) 1.37 K/mm3 1.0-5.0 N MONOCYTE # (test code = MO#) 0.91 K/mm3 0-0.8 H EOSINOPHIL # (test code = EO#) 0.06 K/mm3 0.0-0.5 N BASOPHIL # (test code = BA#) 0.04 K/mm3 0.0-0.2 N NUCLEATED RBC # (test code = NRBC#) 0.00 K/mm3 0.0-0.1 N MANUAL DIFF REQUIRED (test code = MDIFF) NO, ONLY SCAN NEEDED DIFFERENTIAL [id number] 11:18:00* Test Item Value Reference Range Interpretation Comments STAIN ACCEPTABILITY (test code = STN ACCEPTABLE) CABOT RINGS (test code = CAB) MORPHOLOGY COMMENT (test code = MOC) PLATELET ESTIMATE (test code = PLTEST) PLATELET MORPHOLOGY (test code = PLTMORPH) CBC W/AUTO [id number] 11:18:00* Test Item Value Reference Range Interpretation Comments WHITE BLOOD CELL (test code = WBC) 15.2 K/mm3 4.5-12.5 H RED BLOOD CELL (test code = RBC) 1.90 mill/mm3 3.7-5.2 L HEMOGLOBIN (test code = HGB) 5.8 gram/dL 11.5-15.5 L HEMATOCRIT (test code = HCT) 18.4 % 36.0-46.0 LL Results called to [id number] by [employer] 09/11/19 1117Critical results verified and read back by Nurse? Y MEAN CELL VOLUME (test code = MCV) 96.8 fL 80-98 N MEAN CELL HGB (test code = MCH) 30.5 picogram 27.0-33.0 N MEAN CELL HGB CONCETRATION (test code = MCHC) 31.5 gram/dL 33.0-36. 0 L RED CELL DISTRIBUTION WIDTH (test code = RDW) 16.3 % 11.6-16. 2 H RED CELL DISTRIBUTION WIDTH SD (test code = RDW-SD) 56.9 fL 37 .0-51.0 H PLATELET COUNT (test code = PLT) 46 K/mm3 150-450 LL Results called to [id number] by [facility] 09/11/19 1118Critical results verified and read back by Nurse? Y MEAN PLATELET VOLUME (test code = MPV) 14.2 fL 6.7-11.0 H NEUTROPHIL % (test code = NT%) 83.1 % 39.0-69.0 H IMMATURE GRANULOCYTE % (test code = IG%) 1.2 % 0.0-5.0 N LYMPHOCYTE % (test code = LY%) 9.0 % 25.0-55.0 L MONOCYTE % (test code = MO%) 6.0 % 0.0-10.0 N EOSINOPHIL % (test code = EO%) 0.4 % 0.0-5.0 N BASOPHIL % (test code = BA%) 0.3 % 0.0-1.0 N NUCLEATED RBC % (test code = NRBC%) 0.0 % 0-0 N NEUTROPHIL # (test code = NT#) 12.64 K/mm3 1.8-7.7 H IMMATURE GRANULOCYTE # (test code = IG#) 0.19 x10 3/uL 0-0.03 H LYMPHOCYTE # (test code = LY#) 1.37 K/mm3 1.0-5.0 N MONOCYTE # (test code = MO#) 0.91 K/mm3 0-0.8 H EOSINOPHIL # (test code = EO#) 0.06 K/mm3 0.0-0.5 N BASOPHIL # (test code = BA#) 0.04 K/mm3 0.0-0.2 N NUCLEATED RBC # (test code = NRBC#) 0.00 K/mm3 0.0-0.1 N MANUAL DIFF REQUIRED (test code = MDIFF) NO, ONLY SCAN NEEDED DIFFERENTIAL [id number] 11:18:00* Test Item Value Reference Range Interpretation Comments STAIN ACCEPTABILITY (test code = STN ACCEPTABLE) MORPHOLOGY COMMENT (test code = MOC) PLATELET ESTIMATE (test code = PLTEST) PLATELET MORPHOLOGY (test code = PLTMORPH) CBC W/AUTO [id number] 11:18:00* Test Item Value Reference Range Interpretation Comments WHITE BLOOD CELL (test code = WBC) 15.2 K/mm3 4.5-12.5 H RED BLOOD CELL (test code = RBC) 1.90 mill/mm3 3.7-5.2 L HEMOGLOBIN (test code = HGB) 5.8 gram/dL 11.5-15.5 L HEMATOCRIT (test code = HCT) 18.4 % 36.0-46.0 LL Results called to [id number] by [employer] 09/11/19 1117Critical results verified and read back by Nurse? Y MEAN CELL VOLUME (test code = MCV) 96.8 fL 80-98 N MEAN CELL HGB (test code = MCH) 30.5 picogram 27.0-33.0 N MEAN CELL HGB CONCETRATION (test code = MCHC) 31.5 gram/dL 33.0-36. 0 L RED CELL DISTRIBUTION WIDTH (test code = RDW) 16.3 % 11.6-16. 2 H RED CELL DISTRIBUTION WIDTH SD (test code = RDW-SD) 56.9 fL 37 .0-51.0 H PLATELET COUNT (test code = PLT) 46 K/mm3 150-450 LL Results called to [id number] by [employer] 09/11/19 1118Critical results verified and read back by Nurse? Y MEAN PLATELET VOLUME (test code = MPV) 14.2 fL 6.7-11.0 H NEUTROPHIL % (test code = NT%) 83.1 % 39.0-69.0 H IMMATURE GRANULOCYTE % (test code = IG%) 1.2 % 0.0-5.0 N LYMPHOCYTE % (test code = LY%) 9.0 % 25.0-55.0 L MONOCYTE % (test code = MO%) 6.0 % 0.0-10.0 N EOSINOPHIL % (test code = EO%) 0.4 % 0.0-5.0 N BASOPHIL % (test code = BA%) 0.3 % 0.0-1.0 N NUCLEATED RBC % (test code = NRBC%) 0.0 % 0-0 N NEUTROPHIL # (test code = NT#) 12.64 K/mm3 1.8-7.7 H IMMATURE GRANULOCYTE # (test code = IG#) 0.19 x10 3/uL 0-0.03 H LYMPHOCYTE # (test code = LY#) 1.37 K/mm3 1.0-5.0 N MONOCYTE # (test code = MO#) 0.91 K/mm3 0-0.8 H EOSINOPHIL # (test code = EO#) 0.06 K/mm3 0.0-0.5 N BASOPHIL # (test code = BA#) 0.04 K/mm3 0.0-0.2 N NUCLEATED RBC # (test code = NRBC#) 0.00 K/mm3 0.0-0.1 N MANUAL DIFF REQUIRED (test code = MDIFF) NO, ONLY SCAN NEEDED DIFFERENTIAL [id number] 11:18:00* Test Item Value Reference Range Interpretation Comments STAIN ACCEPTABILITY (test code = STN ACCEPTABLE) CABOT RINGS (test code = CAB) MORPHOLOGY COMMENT (test code = MOC) PLATELET ESTIMATE (test code = PLTEST) PLATELET MORPHOLOGY (test code = PLTMORPH) BASIC METABOLIC [id number] 09:46:00* Test Item Value Reference Range Interpretation Comments SODIUM (test code = NA) 139 mmol/L 136-145 N POTASSIUM (test code = K) 4.9 mmol/L 3.5-5.1 N CHLORIDE (test code = CL) 101.0 mmol/L 98-107 N CARBON DIOXIDE (test code = CO2) 29.0 mmol/L 21-32 N ANION GAP (test code = GAP) 13.9 10-20 N GLUCOSE (test code = GLU) 174 mg/dL 74-106 H BLOOD UREA NITROGEN (test code = BUN) 53 mg/dL 7-18 H GLOMERULAR FILTRATION RATE (test code = GFR) 5 mL/min >=60 Estimated GFR by using Modified MDRD formula.Chronic kidney disease is defined as either kidney damageor GFR <60 mL/min/1.73 m2 for >3 months. CREATININE (test code = CREAT) 7.80 mg/dL 0.55-1.02 H Note change in reference range due to change in reagent. BUN/CREATININE RATIO (test code = BUN/CREA) 6.8 10-20 L CALCIUM (test code = CA) 8.3 mg/dL 8.5-10.1 L AG HEPAT B [id number] 09:42:00* Test Item Value Reference Range Interpretation Comments AG HEPAT B SURF (test code = HBSAG) Nonreactive Index Nonreactive BASIC METABOLIC [id number] 09:40:00* Test Item Value Reference Range Interpretation Comments SODIUM (test code = NA) 139 mmol/L 136-145 N POTASSIUM (test code = K) 4.9 mmol/L 3.5-5.1 N CHLORIDE (test code = CL) 101.0 mmol/L 98-107 N CARBON DIOXIDE (test code = CO2) mmol/L 21-32 ANION GAP (test code = GAP) 10-20 GLUCOSE (test code = GLU) mg/dL 74-106 BLOOD UREA NITROGEN (test code = BUN) mg/dL 7-18 GLOMERULAR FILTRATION RATE (test code = GFR) mL/min >=60 CREATININE (test code = CREAT) mg/dL 0.55-1.02 BUN/CREATININE RATIO (test code = BUN/CREA) 10-20 CALCIUM (test code = CA) mg/dL 8.5-10.1 [id number] 08:52:00* Test Item Value Reference Range Interpretation Comments GLUBED (test code = GLUBED) 151 mg/dL 74-106 H Performed by certified panel raiser operator at [facility] [id number] 16:30:00* Test Item Value Reference Range Interpretation Comments GLUBED (test code = GLUBED) 220 mg/dL 74-106 H Performed by certified panel raiser operator at [facility] [id number] 11:46:00* Test Item Value Reference Range Interpretation Comments GLUBED (test code = GLUBED) 245 mg/dL 74-106 H Performed by certified panel raiser operator at [facility] [id number] 08:17:00* Test Item Value Reference Range Interpretation Comments GLUBED (test code = GLUBED) 251 mg/dL 74-106 H Performed by certified panel raiser operator at [facility] [id number] 05:56:00* Test Item Value Reference Range Interpretation Comments GLUEMERSON (test code = GLUBED) 249 mg/dL 74-106 H Performed by certified panel raiser operator at [facility] - CT LOWER EXTRM W/O C [id number] 01:54:00 Name: JUAN MANRIQUEZ [facility] : 1945 Age/S: 74 / F [address] [facility] Unit #: [id number] Loc: [place] [address] Phys: Marilou Wasserman DO Acct: [id number] Dis Date: Status: ADM IN PHONE #: [phone] Exam Date: 09/09/2019 234 FAX #: [phone] Reason: fracture Report Has Been Amended EXAMS: CPT CODE: [id number] [place] LOWER EXTRM W/[place] [address] Addendum - 09/10/2019 SIGNED 09/10/2019 ADDENDUM: [id number] CT/CTLEWOCLT ADDENDUM: 3-D reconstructed images were later submitted and reviewed. at 0154 Reported and signed by: Lloyd Fuentes M.D. Transcribed: 09/10/2019 (0154) [email or web address] Report AFTER HOURS SERVICE ON: 09/10/2019 12:[address] SCAN of the LEFT KNEE WITHOUT CONTRAST Location Code M12 History: fall, fracture Technique: Axial and reconstructed coronal and sagittal scans were performed without IV contrast. One or more of the following dose reduction techniques were used: Automated exposure control, adjustment of the mA and/or kV according to patient size, and/or utilization of iterative reconstruction technique. FINDINGS: There is a large hemarthrosis. There is no patellar fracture, tilt or subluxation. There is osteopenia. There is a comminuted mildly impacted fracture of the distal femur extending to the inner margin of the medial femoral condyle abutting the intercondylar notch. Multiple comminuted fracture fragments are seen. There is maximum cortical step-off of approximately 7 mm. Lateral femoral condyle is intact. Tibial plateaus and fibular head are within normal limits. Extensive vascular calcifications are seen in the femoral and popliteal arteries. PAGE 1 Signed Report (CONTINUED) Name: JUAN MANRIQUEZ [facility] : 1945 Age/S: 74 / F [address] Unit #: [id number] Loc: [place] [address] Phys: Marilou Wasserman DO Acct: [id number] Dis Date: Status: ADM IN PHONE #: [phone] Exam Date: 09/09/2019 2249 FAX #: [phone] Reason: fracture Report Has Been Amended EXAMS: CPT CODE: [id number] [place] LOWER EXTRM W/[place] [address] <Continued> IMPRESSION: Comminuted intra-articular fracture of the distal femur extending to the inner margin of the medial femoral condyle. AFTER HOURS SERVICE ON: 09/10/2019 12:[address] Angiography Abdominal Aorta and Bilateral Lower Extremity Runoff Location Code M12 History: fall, fracture Technique: Source thin cut axial scans from the lung bases to the toes are obtained post IV contrast on a multislice CT. Coronal and sagittal reconstructions were performed of the abdomen/pelvis, thighs and legs. 3-D post processing was not performed. One or more of the following dose reduction techniques were used: Automated exposure control, adjustment of the mA and/or kV according to patient size, and/or utilization of iterative reconstruction technique. ARTERIOGRAM FINDINGS: There are extensive vascular calcification of the aorta and its territories. Celiac, mesenteric and renal arteries are patent. Iliac arteries are patent. No evidence of aortic aneurysm or dissection. Extensive atherosclerosis is noted in the iliac arteries. Advanced atherosclerosis also noted above and below the knees including the trifurcation vessels. No evidence of definite arterial injury is seen particularly of the popliteal artery. There is no surrounding vascular blush or significant perivascular hematoma. Examination is however limited due to degree of atherosclerosis. Flow is seen in the trifurcation vessels. PAGE 2 Signed Report (CONTINUED) Name: JUAN MANRIQUEZ [facility] : 1945 Age/S: 74 / F [address] Unit #: [id number] Loc: [place] [address] Phys: Marilou Wasserman DO Acct: [id number] Dis Date: Status: ADM IN PHONE #: [phone] Exam Date: 09/09/2019 2345 FAX #: [phone] Reason: fracture Report Has Been Amended EXAMS: CPT CODE: [id number] [place] LOWER EXTRM W/[place] [address] < Continued> SOFT TISSUE FINDINGS: There is a 1 cm right lower lobe pulmonary nodule. Heart is enlarged. Liver is fatty infiltrated. Gallbladder is absent. Pancreas and spleen are within normal limits. Adrenal glands are symmetric. Kidneys are atrophic. Uterus is not visualized. There is a complete bladder cystocele of the bladder completely below the pelvic floor. There is no obstructive uropathy. There is no bowel obstruction, inflammatory changes or free air. Appendix is not visualized. IMPRESSION: No definite arterial injury in the lower extremities. Complete bladder cystocele below the pelvic floor. 1 cm right lower lobe pulmonary nodule. Nonemergent chest CT and PET scan correlation recommended. at 0019 Reported and signed by: Lloyd Fuentes M.D. CC: Leona Colindres Lauren DO Technologist:Hernan Powell, RT(R)(CT); Min CTDI: DLP: Trnscb Date/Time: 09/10/2019 (001) [email or web address] Orig Print D/T: S: 09/10/2019 (0022) PAGE 3 Signed Report - CTA LOW EXTREMITY [id number] 01:54:00 Name: JUAN MANRIQUEZ [facility] : 1945 Age/S: 74 / F [place] Unit #: [id number] Loc: [place] [address] Phys: Jenni Wasserman DO Acct: [id number] Di s Date: Status: ADM IN PHONE #: Exam Date: 09/09/2019 2342 FAX #: Reason: fall, fracture Report Has Been Amended EXAMS: CPT CODE: [id number] [place] [address] Addendum - 09/10/2019 SIGNED 09/10 ADDENDUM: [id number] CT/CTALOWEXLT ADD ENDUM: 3-D reconstructed images were later submitted and reviewed. at 0154 Reported and signed by: Lloyd Fuentes M.D. Transcribed: 09/10/2019 (0154) [email or web address] Report AFTER HOURS SERVICE ON: 09/10/2019 12:[address] SCAN of the LEFT KNEE WITHOUT CONTRAST Location Code M12 History: fall, fracture Technique: Axial and reconstructed coronal and sagittal scans were performed without IV contrast. One or more of the following dose reduction techni ques were used: Automated exposure control, adjustment of the mA and/or kV according to patient size, and/or utilization of iterative reconstruction technique. FINDINGS: There is a large hemart hrosis. There is no patellar fracture, tilt or subluxation. There is ost eopenia. There is a comminuted mildly impacted fracture of the distal fem ur extending to the inner margin of the medial femoral condyle abutting th e intercondylar notch. Multiple comminuted fracture fragments are seen. There is maximum cortical step-off of approximately 7 mm. Lateral femoral condyle is intact. Tibial plateaus and fibular head are within normal li mits. Extensive vascular calcifications are seen in the femoral and popli teal arteries. PAGE 1 Signed Report (CONTINUED) Name: JUAN MANRIQUEZ [facility] : 1945 Age/S: 74 / F [address] [facility] Unit #: [id number] Loc: [place] [address] Phys: LuxMarilou DO Acct: [id number] Dis Date: Status: ADM IN PHONE #: [phone] Exam Date: 09/09/2019 234 FAX #: [phone] Reason: fall, fracture Report Has Been Amended EXAMS: CPT CODE: [id number] [address] <Continued> IMPRESSION: Comminuted intra-articular fracture of the distal femur extending to the inner margin of the medial femoral condyle. AFTER HOURS SERVICE ON: 09/10/2019 12:[address] Angiography Abdominal Aorta and Bilateral Lower Extremity Runoff Location Code M12 History: fall, fracture Technique: Source thin cut axial scans from the lung bases to the toes are obtained post IV contrast on a multislice CT. Coronal and sagittal reconstructions were performed of the abdomen/pelvis, thighs and legs. 3-D post processing was not performed. One or more of the following dose reduction techniques were used: Automated exposure control, adjustment of the mA and/or kV according to patient size, and/or utilization of iterative reconstruction technique. ARTERIOGRAM FINDINGS: There are extensive vascular calcification of the aorta and its territories. Celiac, mesenteric and renal arteries are patent. Iliac arteries are patent. No evidence of aortic aneurysm or dissection. Extensive atherosclerosis is noted in the iliac arteries. Advanced atherosclerosis also noted above and below the knees including the trifurcation vessels. No evidence of definite arterial injury is seen particularly of the popliteal artery. There is no surrounding vascular blush or significant perivascular hematoma. Examination is however limited due to degree of atherosclerosis. Flow is seen in the trifurcation vessels. PAGE 2 Signed Report (CONTINUED) Name: JUAN MANRIQUEZ [facility] : 1945 Age/S: 74 / F [address] [facility] Unit #: [id number] Loc: [place] [address] Phys: Marilou Wasserman DO Acct: [id number] Dis Date: Status: ADM IN PHONE #: [phone] Exam Date: 09/09/2019 2569 FAX #: [phone] Reason: fall, fracture Report Has Been Amended EXAMS: CPT C ODE: [id number] [place] [address] <Continued> SOFT TISSUE FINDINGS: There is a 1 cm right lower lobe pulmonary nodule. Heart is enlarged. Liver is fatty infiltrated. Gallbladder is absent. Pancreas and spleen are within normal limits. Adrenal glands are symmetric. Kidneys are atrophic. Uterus is not visualized. There is a complete bladder cystocele of the bladder completely below the pelvic floor. There is no obstructive uropathy. There is no bowel obstruction, inflammatory changes or free air. Appendix is not visualized. IMPRESSION: No definite arterial injury in the lower extremities. Complete bladder cystocele below the pelvic floor. 1 cm right lower lobe pulmonary nodule. Nonemergent chest CT and PET scan correlation recommended. at 0019 Reported and signed by: Lloyd Fuentes M.D. CC: Leona Colindres Lauren DO Technologist:Hernan Powell, RT(R)(CT); Min CTDI: DLP: Trnscb Date/Time: 09/10/2019 (18) [email or web address] Orig Print D/T: S: 09/10/2019 (002) PAGE 3 Signed Report - CT LOWER EXTRM W/O C [id number] 00:19:00 Name: JUAN MANRIQUEZ [facility] : 1945 Age/S: 74 / F [address] [facility] Unit #: [id number] Loc: [place] [address] Phys: Jenni Wasserman DO Acct: [id number] Di s Date: Status: REG ER PHONE #: Exam Date: 09/09/2019 2344 FAX #: Reason: fracture EXAMS: CPT CODE: [id number] [place] LOWER EXTRM W/[place] [address] AFTER HOURS SERVICE ON: 12:[address] SCAN of the LEFT KNEE WITHOUT CONTRAST Location Code M12 History: fall, fracture Technique: Axial and reconstructed coronal and sagittal scans were p erformed without IV contrast. One or more of the following dose re duction techniques were used: Automated exposure control, adjustment of th e mA and/or kV according to patient size, and/or utilization of iterative reconstruction technique. FINDINGS: There is a large hemarthrosis. There is no patellar fracture, tilt or subluxation. There is osteopenia. There is a comminuted mildly impacted fracture of the distal femur extending to the inner margin of the medial femoral condy le abutting the intercondylar notch. Multiple comminuted fracture fragmen ts are seen. There is maximum cortical step-off of approximately 7 mm. L ateral femoral condyle is intact. Tibial plateaus and fibular head are wi thin normal limits. Extensive vascular calcifications are seen in the fem oral and popliteal arteries. IMPRESSION: Comminuted intra-articular fracture of the distal femur extending to the inner margin of the medial femoral condyle. AFTER HOURS SERVICE ON: 09/10/2019 12:[address] Angiography Abdominal Aorta and Bilateral Lower Extremity Runoff Location Code M12 PAGE 1 Signed Report (CONTINUED) Name: JUAN MANRIQUEZ [facility] : 1945 Age/S: 74 / F [address] [facility] Unit #: [id number] Loc: [place] [address] Phys: LuxMarilou DO Acct: [id number] Dis Date: Status: REG ER PHONE #: [phone] Exam Date: 09/09/2019 2345 FAX #: [phone] Reason: fracture EXAMS: CPT CODE: [id number] [place] LOWER EXTRM W/[place] [address] < Continued> History: fall, fracture Technique: Source thin cut axial scans from the lung bases to the toes are obtained post IV contrast on a multislice CT. Coronal and sagittal reconstructions were performed of the abdomen/pelvis, thighs and legs. 3-D post processing was not performed. One or more of the following dose reduction techniques were used: Automated exposure control, adjustment of the mA and/or kV according to patient size, and/or utilization of iterative reconstruction technique. ARTERIOGRAM FINDINGS: There are extensive vascular calcification of the aorta and its territories. Celiac, mesenteric and renal arteries are patent. Iliac arteries are patent. No evidence of aortic aneurysm or dissection. Extensive atherosclerosis is noted in the iliac arteries. Advanced atherosclerosis also noted above and below the knees including the trifurcation vessels. No evidence of definite arterial injury is seen particularly of the popliteal artery. There is no surrounding vascular blush or significant perivascular hematoma. Examination is however limited due to degree of atherosclerosis. Flow is seen in the trifurcation vessels. SOFT TISSUE FINDINGS: There is a 1 cm right lower lobe pulmonary nodule. Heart is enlarged. Liver is fatty infiltrated. Gallbladder is absent. Pancreas and spleen are within normal limits. Adrenal glands are symmetric. Kidneys are atrophic. Uterus is not visualized. There is a complete bladder cystocele of the bladder completely below the pelvic floor. There is no obstructive uropathy. There is no bowel obstruction, inflammatory changes or free air. Appendix is not visualized. IMPRESSION: No definite arterial injury in the lower extremities. Complete bladder cystocele below the pelvic floor. 1 cm right lower lobe pulmonary nodu le. Nonemergent chest CT and PET scan correlation recommended. PAGE 2 Signed Report (CONTINUED) Name: JUAN RAMIREZ [facility] : [birth year] Age/S: 74 / F [address] [facility] Unit #: [id number] Loc: [place] [address] Phys: Marilou Wasserman DO Acct: [id number] Dis Date: Status: REG ER PHONE #: [phone] Exam Date: 09/09/2019 2341 FAX #: [phone] Reason: fracture EXAMS: CPT CODE: [id number] CT LOWER EXTRM W/[place] [address] <Continued> at 0019 Reported and signed by: Lloyd Fuentes M.D. CC: Leona Colindres Lauren DO Technologist:Hernan Powell, RT(R)(CT); Min CTDI: DLP: Trnscb Date/Time: 09/10/2019 (001) [email or web address] Orig Print D/T: S: 09/10/2019 (0022) PAGE 3 Signed Report - CTA LOW EXTREMITY [id number] 00:19:00 Name: JUAN MANRIQUEZ [facility] : 1945 Age/S: 74 / F [address] Unit #: [id number] Loc: [place] [address] Phys: Marilou Wasserman DO Acct: [id number] Dis Date: Status: REG ER PHONE #: [phone] Exam Date: 09/09/20192344 FAX #: [phone] Reason: fall, fracture EXAMS: CPT CODE: [id number] [place] [address] AFTER HOURS SERVICE ON: 09/10/2019 12:[address] SCAN of the LEFT KNEE WITHOUT CONTRAST Location Code M12 History: fall, fracture Technique: Axial and reconstructed coronal and sagittal scans were performed without IV contrast. One or more of the following dose reduction techniques were used: Automated exposure control, adjustment of the mA and/or kV according to patient size, and/or utilization of iterative reconstruction technique. FINDINGS: There is a large hemarthrosis. There is no patellar fracture, tilt or subluxation. There is osteopenia. There is a comminuted mildly impacted fracture of the distal femur extending to the inner margin of the medial femoral condyle abutting the intercondylar notch. Multiple comminuted fracture fragments are seen. There is maximum cortical step-off of approximately 7 mm. Lateral femoral condyle is intact. Tibial plateaus and fibular head are within normal limits. Extensive vascular calcifications are seen in the femoral and popliteal arteries. IMPRESSION: Comminuted intra- articular fracture of the distal femur extending to the inner margin of the medial femoral condyle. AFTER HOURS SERVICE ON: 09/10/2019 12:[address] Angiography Abdominal Aorta and Bilateral Lower Extremity Runoff Location Code M12 PAGE 1 Signed Report (CONTINUED) Name: JUAN MANRIQUEZ [facility] : 1945 Age/S: 74 / F [address] [facility] Unit #: [id number] Loc: [place] [address] Phys: WassermanMikaMarilou DO Acct: [id number] Dis Date: Status: REG ER PHONE #: [phone] Exam Date: 09/09/20192344 FAX #: [phone] Reason: fall, fracture EXAMS: CPT CODE: [id number] [place] [address] < Continued> History: fall, fracture Technique: Source thin cut axial scans from the lung bases to the toes are obtained post IV contrast on a multislice CT. Coronal and sagittal reconstructions were performed of the abdomen/pelvis, thighs and legs. 3-D post processing was not performed. One or more of the following dose reduction techniques were used: Automated exposure control, adjustment of the mA and/or kV according to patient size, and/or utilization of iterative reconstruction technique. ARTERIOGRAM FINDINGS: There are extensive vascular calcification of the aorta and its territories. Celiac, mesenteric and renal arteries are patent. Iliac arteries are patent. No evidence of aortic aneurysm or dissection. Extensive atherosclerosis is noted in the iliac arteries. Advanced atherosclerosis also noted above and below the knees including the trifurcation vessels. No evidence of definite arterial injury is seen particularly of the popliteal artery. There is no surrounding vascular blush or significant perivascular hematoma. Examination is however limited due to degree of atherosclerosis. Flow is seen in the trifurcation vessels. SOFT TISSUE FINDINGS: There is a 1 cm right lower lobe pulmonary nodule. Heart is enlarged. Liver is fatty infiltrated. Gallbladder is absent. Pancreas and spleen are within normal limits. Adrenal glands are symmetric. Kidneys are atrophic. Uterus is not visualized. There is a complete bladder cystocele of the bladder completely below the pelvic floor. There is no obstructive uropathy. There is no bowel obstruction, inflammatory changes or free air. Appendix is not visualized. IMPRESSION: No definite arterial injury in the lower extremities. Complete bladder cystocele below the pelvic floor. 1 cm right lower lobe pulmonary nodu le. Nonemergent chest CT and PET scan correlation recommended. PAGE 2 Signed Report (CONTINUED) Name: JUAN RAMIREZ [facility] : [birth year] Age/S: 74 / F [address] [facility] Unit #: [id number] Loc: [place] [address] Phys: Marilou Wasserman DO Acct: [id number] Dis Date: Status: REG ER PHONE #: [phone] Exam Date: 09/09/2019 6235 FAX #: [phone] Reason: fall, fracture EXAMS: CPT CODE: [id number] [place] [address] <Continued> at 0019 Reported and signed by: Lloyd Fuentes M.D. CC: GlennLeona Lauren DO Technologist:Hernan Powell, RT(R)(CT); Min CTDI: DLP: Trnscb Date/Time: 09/10/2019 (0019) [email or web address] Orig Print D/T: S: 09/10/2019 (0022) PAGE 3 Signed Report - CT C-SPINE W/O [id number] 00:06:00 Name: JUAN MANRIQUEZ [facility] : 1945 Age/S: 74 / F [address] [facility] Unit #: [id number] Loc: [place] [address] Phys: Marilou Wasserman DO Acct: [id number] Dis Date: Status: REG ER PHONE #: [phone] Exam Date: 09/09/2019 234 FAX #: [phone] Reason: Neck Pain EXAMS: CPT CODE: [id number] CT C-SPINE W/O CONTRAST 17973 AFTER HOURS SERVICE ON: 09/10/2019 12:[address] of the Cervical Spine Without Contrast Location Code M12 History: Neck Pain Technique: Scans were obtained on a helical scanner pre IV contrast only. One or more of the following dose reduction techniques were used: Automated exposure control, adjustment of the mA and/or kV according to patient size, and/or utilization of iterative reconstruction technique. Findings: Craniocervical junction is intact. Atlantoaxial joint is unremarkable. C1 ring is normal. Dens is intact. Transverse processes, pedicles and lamina are intact. No compression fracture or pathologic lesions. There is multilevel cervical spondylosis with disc space narrowing. No significant spurring is seen. There is no significant central canal stenosis. Impression: No cervi lizzette spine fracture. at 0006 Reported and signed by: Lloyd Fuentes M.D. CC: Leona Bowen Lauren DO Technologist:Hernan morgan, RT(R)(CT); Min CTDI: DLP: Trnscb Date/Time: 09/10/2019 (0006) [email or web address] Orig Print D/T: S: 09/10/2019 (0009) PAGE 1 Signed Report - CT HEAD/BRAIN W/O [id number] 23:51:00 Name: JUAN MANRIQUEZ [facility] : 1945 Age/S: 74 / F [place] Unit #: [id number] Loc: [place] [address] Phys: Marilou Wasserman DO Acct: [id number] Dis Date: Status: REG ER PHONE #: [phone] Exam Date: 09/09/2019 2344 FAX #: [phone] Reason: HEADACHE EXAMS: CPT CODE: [id number] CT HEAD/BRAIN W/O CONT 19545 Examination: Noncontrast head CT Indication: Headache Comparison: February 15, 2012 Location: R16 Technique: Multiple CT images of the brain were obtained from the skull base to the vertex. No intravenous contrast was administered. One or more of the following dose reduction techniques were used: Automated exposure control, adjustment of the mA and/or kV according to patient size, and/or utilization of iterative reconstruction technique. Findings: There is prominence of the ventricles and sulci consistent with moderate supratentorial cerebral volume loss. The basilar cisterns are patent. There is no intracranial hemorrhage or mass effect. No intra-axial or extra-axial fluid collections are seen. There are diffuse periventricular and subcortical white matter hypodensities which are nonspecific, but likely the sequelae of chronic microvascular ischemia. This appearance makes evaluation for underlying acute infarct difficult. Prominent posterior circulation calcifications are noted. The visualized paranasal sinuses and mastoid air cells demonstrate partial opacification of the left maxillary sinus and ethmoid air cells with questionable trace fluid seen within the left mastoid air cells. Impression: 1. No acute intracranial hemorrhage or significant mass effect 2. Additional findings as above PAGE 1 Signed Report (CONTINUED) Name: JUAN MANRIQUEZ [facility] : 1945 Age/S: 74 / F [place] Unit #: [id number] Loc: [place] [address] Phys: Marilou Wasserman DO Acct: [id number] Dis Date: Status: REG ER PHONE #: [phone] Exam Date: 09/09/2019 2344 FAX #: [phone] Reason: HEADACHE EXAMS: CPT CODE: [id number] CT HEAD/BRAIN W/O CONT 85489 <Continued> at 2351 Reported and signed by: Syl Ang M.D. CC: Leona Colindres; Marilou Wasserman DO Technologist:Brady Xiao RT(R) CTDI: DLP: Trnscb Date/Time: 09/09/2019 (2350) [email or web address] Orig Print D/T: S: 09/09/2019 (7408) PAGE 2 Signed Report - XR PELVIS /2 [id number] 23:21:00 FAX: Leona Ziegler MD [phone] [place]: St: REG FAX: Marilou Wasserman DO Name: JUAN MANRIQUEZ [facility] : 1945 Age/S: 74/F [address] [facility] Unit #: [id number] Loc: [place] [address] Phys: Marilou Wasserman DO Acct: [id number] Dis Date: Status: REG ER PHONE #: [phone] Exam Date: 09/09/20192229 FAX #: [phone] Reason: PELVIC PAIN EXAMS: CPT CODE: [id number] XR PELVIS /2 VIEWS 76567 AFTER HOURS SERVICE ON: 09/09/2019 11:20 PM Pelvis, 1 View Location Code M12 History: PELVIC PAIN Findings: There is osteopenia. No fracture or dislocation is seen. Articular surfaces are within normal limits for patients' age. Visualized sacroiliac joints are unremarkable. Pubic symphysis is unrema rkable. Impression: Osteopenia. No displaced fracture. at 2321 Reported and signed by: Lloyd Fuentes M.D. CC: Leona Colindres; Marilou Wasserman DO Technologist: Timmy Merchant RT(R); ANGELA SALGADO RT(R); ... Trnscrd Date/Time/By: 09/09/2019 (8 045) : By: [email or web address] Orig Print D/T: S: 09/09/2019 (3723) PAGE 1 Signed Report - XR CHEST 1 [id number] 23:15:00 FAX: Leona Ziegler MD [phone] [place]: St: [facility] FAX: Marilou Wasserman DO Name: JUAN MANRIQUEZ [facility] : 1945 Age/S: 74/F [address] [facility] Unit #: [id number] Loc: [place] [address] Phys: Marilou Wasserman DO Acct: [id number] Dis Date: Status: REG ER PHONE #: [phone] Exam Date: 09/09/20192229 FAX #: [phone] Reason: CHEST PAIN EXAMS: CPT CODE: [id number] XR CHEST 1 V 89127 AFTER HOURS SERVICE ON: 09/09/2019 11:15 PM AP Portable Chest Location Code M12 HISTORY: CHEST PAIN FINDINGS: Study is limited due to shallow inspiration. Cardiac silhouette is mildly enlarged. There is mild central vascular c ongestion. Right IJ catheter is in place projecting over the right atrium . There is no pneumothorax. IMPRESSION: Mild vascular congestion. at 2315 Reported and signed by: Lloyd Fuentes M.D. CC: Leona Colindres Lauren DO Technol ogist: Timmy Merchant RT(R); ANGELA SALGADO RT(R); ... Trnscrd Date/Time/ By: 09/09/2019 (1066) : By: [email or web address] Orig Print D/T: S: 09/09/2019 (1 207) PAGE 1 Signed Report - XR FEMUR MIN 2 VWS [id number] 23:14:00 FAX: Leona Ziegler MD [phone] [place]: St: REG FAX: Marilou Wasserman DO Name: JUAN MANRIQUEZ [facility] : 1945 Age/S: 74/F [address] [facility] Unit #: [id number] Loc: [place] [address] Phys: Marilou Wasserman DO Acct: [id number] Dis Date: Status: REG ER PHONE #: [phone] Exam Date: 09/09/20192229 FAX #: [phone] Reason: THIGH PAIN EXAMS: CPT CODE: [id number] XR FEMUR MIN 2 [place] [address] AFTER HOURS SERVICE ON: 09/09/2019 11:13 PM Left Femur, 4 Views Location Code M12 History: THIGH PAIN Findings: There is a comminuted mildly impacted fracture of the distal femur with extension to the intercondylar notch. There is approximately 11 mm in maximum cortical displacement. I mpression: Comminuted mildly displaced impacted distal femur f racture. at 7082 Reported and signed by: Lloyd Fuentes M.D. CC: Leona Bowen Lauren DO Technologist: Timmy Merchant RT(R); ANGELA SALGADO RT(R); ..Jose Manuel Trnscrd Date/Time/By: 09/09/2019 () : By: [email or web address] Orig Print D/T: S: 09/09/2019 (9557) PAGE 1 Signed Report - XR KNEE 1 OR 2 V [id number] 23:13:00 FAX: Leona Ziegler MD [phone] [place]: St: REG FAX: Marilou Wasserman DO Name: JUAN MANRIQUEZ [facility] : 1945 Age/S: 74/F [address] [facility] Unit #: [id number] Loc: [place] [address] Phys: Marilou Wasserman DO Acct: [id number] Dis Date: Status: REG ER PHONE #: [phone] Exam Date: 09/09/20192230 FAX #: [phone] Reason: KNEE PAIN EXAMS: CPT CODE: [id number] XR KNEE 1 OR 2 V LT [address] AFTER HOURS SERVICE ON: 09/09/2019 11:12 PM Left Knee, 2 Views Location Code M12 History: KNEE PAIN Findings: There is a comminuted fracture of the distal femur with extension into the intercondylar notch. There is osteopenia. There is no tibial plateau fracture. There is a large suprapatellar hemar throsis. Impression: Comminuted articular-exte nding fracture of the distal femur Large suprapatellar hemarth rosis. at 3173 Reported and signed by: Lloyd Fuentes M.D. CC: Leona Colindres; Marilou Wasserman DO Technologist: Timmy Merchant RT( R); ANGELA SALGADO RT(R); ... Trnscrd Date/Time/By: 09/09/2019 (2312) : By: [email or web address] Orig Print D/T: S: 09/09/2019 (3396) PAGE 1 Signed Report - XR TIBIA/FIBULA 2 V [id number] 23:12:00 FAX: Leona Ziegler MD [phone] [place]: St: REG FAX: Marilou Wasserman DO Name: JUAN MANRIQUEZ [facility] : 1945 Age/S: 74/F [address] [facility] Unit #: [id number] Loc: [place] [address] Phys: Marilou Wasserman DO Acct: [id number] Dis Date: Status: REG ER PHONE #: [phone] Exam Date: 09/09/20192229 FAX #: [phone] Reason: LEG PAIN EXAMS: CPT CODE: [id number] XR TIBIA/FIBUL[place] 2 [place] [address] AFTER HOURS SERVICE ON: 09/09/2019 11:10 PM Left Tibia and Fibula, 4 Views Location Code M12 History: LEG PAIN Findings: There is osteopenia. There is a c omminuted impacted fracture of the distal femur with extension to the inte rcondylar notch. Tibia and fibula are intact. There is no tibial plateau fracture. Impression: Unremarkable tibia and fibula. Comminuted fractures of the distal femur. at 2312 Reported and si gned by: Lloyd Fuentes M.D. CC: Leona Colindres; Marilou Wasserman DO Technologist: Timmy Merchant RT(R); ANGELA SALGADO RT(R); ... Trnscrd Date/Time/By: 09/09/2019 (0376) : By: [email or web address] Orig Print D/T: S: 09/09/2019 (2357) PAGE 1 Signed Report - XR ANKLE 2 VIEWS LT 2019-09-09 23:09:00 FAX: Leona Ziegler MD [phone] [place]: St: REG FAX: Marilou Wasserman DO Name: JUAN MANRIQUEZ [facility] : 1945 Age/S: 74/F [address] [facility] Unit #: [id number] Loc: [place] [address] Phys: Marilou Wasserman DO Acct: [id number] Dis Date: Status: REG ER PHONE #: [phone] Exam Date: 09/09/20190 FAX #: [phone] Reason: ANKLE PAIN EXAMS: CPT CODE: [id number] XR ANKLE [address] [place] [address] AFTER HOURS SERVICE ON: 09/09/2019 11:09 PM Left Ankle, 2 Views Location Code M12 History: ANKLE PAIN Findings: There is osteopenia. There is normal anatomic alignment. No fracture, dislocation or avulsion fragments are seen. Ankle mortise, tibial plafond and talar dome are intact. Impression: Osteopenia. No fracture. at 5755 Reported and signed by: Lloyd Fuentes M.D. CC: Leona Colindres; Marilou Wasserman DO Technologist: Timmy Merchant RT(R); ANGELA SALGADO RT(R); ... Trnscrd Date/Time/By: 09/09/2019 (1370) : By: [email or web address] Orig Print D/T: S: 09/09/2019 (6158) PAGE 1 Signed Report BASIC METABOLIC [id number] 22:52:00* Test Item Value Reference Range Interpretation Comments SODIUM (test code = NA) 139 mmol/L 136-145 N POTASSIUM (test code = K) 3.7 mmol/L 3.5-5.1 N CHLORIDE (test code = CL) 102.0 mmol/L 98-107 N CARBON DIOXIDE (test code = CO2) 29.0 mmol/L 21-32 N ANION GAP (test code = GAP) 11.7 10-20 N GLUCOSE (test code = GLU) 185 mg/dL 74-106 H BLOOD UREA NITROGEN (test code = BUN) 37 mg/dL 7-18 H GLOMERULAR FILTRATION RATE (test code = GFR) 7 mL/min >=60 Estimated GFR by using Modified MDRD formula.Chronic kidney disease is defined as either kidney damageor GFR <60 mL/min/1.73 m2 for >3 months. CREATININE (test code = CREAT) 5.60 mg/dL 0.55-1.02 H Note change in reference range due to change in reagent. BUN/CREATININE RATIO (test code = BUN/CREA) 6.6 10-20 L CALCIUM (test code = CA) 7.8 mg/dL 8.5-10.1 L HEPATIC FUNCTION [id number] 22:52:00* Test Item Value Reference Range Interpretation Comments TOTAL PROTEIN (test code = PROT) 7.5 gram/dL 6.4-8.2 N ALBUMIN (test code = ALB) 3.4 g/dL 3.4-5.0 N GLOBULIN (test code = GLOB) 4.1 gram/dL 2.7-4.2 N ALBUMIN/GLOBULIN RATIO (test code = A/G) 0.8 0.75-1.50 N BILIRUBIN TOTAL (test code = BILT) 0.40 mg/dL 0.0-1.0 N BILIRUBIN DIRECT (test code = BILD) 0.13 mg/dL 0.0-0.20 N SGOT/AST (test code = AST) 26 IUnit/L 15-37 N SGPT/ALT (test code = ALT) 24 IUnit/L 12-78 N ALKALINE PHOSPHATASE TOTAL (test code = ALKP) 136 IUnit/L 45-117 H Note change in reference range due to change in reagent. [id number] 22:52:00* Test Item Value Reference Range Interpretation Comments LIPASE (test code = LIP) 277 U/L 73.0-393.0 N BASIC METABOLIC [id number] 22:44:00* Test Item Value Reference Range Interpretation Comments SODIUM (test code = NA) 139 mmol/L 136-145 N POTASSIUM (test code = K) 3.7 mmol/L 3.5-5.1 N CHLORIDE (test code = CL) 102.0 mmol/L 98-107 N CARBON DIOXIDE (test code = CO2) mmol/L 21-32 ANION GAP (test code = GAP) 10-20 GLUCOSE (test code = GLU) mg/dL 74-106 BLOOD UREA NITROGEN (test code = BUN) mg/dL 7-18 GLOMERULAR FILTRATION RATE (test code = GFR) mL/min >=60 CREATININE (test code = CREAT) mg/dL 0.55-1.02 BUN/CREATININE RATIO (test code = BUN/CREA) 10-20 CALCIUM (test code = CA) mg/dL 8.5-10.1 HEPATIC FUNCTION [id number] 22:44:00* Test Item Value Reference Range Interpretation Comments TOTAL PROTEIN (test code = PROT) gram/dL 6.4-8.2 ALBUMIN (test code = ALB) g/dL 3.4-5.0 GLOBULIN (test code = GLOB) gram/dL 2.7-4.2 ALBUMIN/GLOBULIN RATIO (test code = A/G) 0.75-1.50 BILIRUBIN TOTAL (test code = BILT) mg/dL 0.0-1.0 BILIRUBIN DIRECT (test code = BILD) mg/dL 0.0-0.20 SGOT/AST (test code = AST) IUnit/L 15-37 SGPT/ALT (test code = ALT) IUnit/L 12-78 ALKALINE PHOSPHATASE TOTAL (test code = ALKP) IUnit/L 45-117 [id number] 22:44:00* Test Item Value Reference Range Interpretation Comments LIPASE (test code = LIP) U/L 73.0-393.0 PROTHROMBIN [id number] 22:43:00* Test Item Value Reference Range Interpretation Comments PROTHROMBIN TIME PATIENT (test code = PTP) 11.1 seconds 9.0-14.0 N INTERNATIONAL NORMAL RATIO (test code = INR) 0.9 0.8-1.2 N The therapeutic range for oral anticoagulant therapy formost indications is an international normalized ratio (INR)of between 2.0 and 3.0. The recommended therapeutic INRrange for various clinical situations is listed below: Clinical Situation INR range Pulmonary e mbolism treatment (2.0-3.0)Venous thrombosis treatmentVenous thrombosis prophylaxis (high risk surgery)Prevention of systemic embolism from: Acute myocardial infarction Valvular heart disease Atrial fibrillation Mechanical prosthetic heart valves (2.5-3.5) IS PATIENT ON ANTICOAGULANTS? NTHROMBOPLASTIN TIME [id number] 22:43:00* Test Item Value Reference Range Interpretation Comments THROMBOPLASTIN TIME PARTIAL (test code = PTT) 32.9 seconds 25.0-36. 5 N IS PATIENT ON ANTICOAGULANTS? NCBC W/O [id number] 22:39:00* Test Item Value Reference Range Interpretation Comments WHITE BLOOD CELL (test code = WBC) 12.3 K/mm3 4.5-12.5 N RED BLOOD CELL (test code = RBC) 3.52 mill/mm3 3.7-5.2 L HEMOGLOBIN (test code = HGB) 10.6 gram/dL 11.5-15.5 L HEMATOCRIT (test code = HCT) 33.9 % 36.0-46.0 L MEAN CELL VOLUME (test code = MCV) 96.3 fL 80-98 N MEAN CELL HGB (test code = MCH) 30.1 picogram 27.0-33.0 N MEAN CELL HGB CONCETRATION (test code = MCHC) 31.3 gram/dL 33.0-36. 0 L RED CELL DISTRIBUTION WIDTH (test code = RDW) 15.4 % 11.6-16. 2 N PLATELET COUNT (test code = PLT) 32 K/mm3 150-450 LL Results called to [id number] by [email or web address] 09/09/19 2239Critical results verified and read back by Nurse? Y MEAN PLATELET VOLUME (test code = MPV) TEST NOT PERFORMED fL 6.7-[address] THORACIC SPINE [id number] 12:34:00 [place] [address] Patient Name: JUAN MANRIQUEZ MR #: [id number] : 1945 Age/Sex: 74/F Req #: [id number] Adm Physician: Ordered by: LEONA COLINDRES MD Report #: [id number] Location: CT Room/Bed: Procedure: [id number] CT/CT THORACIC SPINE WO Exam Date: 05/15/19 Exam Time: 11 45 REPORT STATUS: Signed CT THOR ACIC SPINE WO HISTORY: Thoracic spine pain COMPARISON: Chest radiogra [facility] 11/18/2018 TECHNIQUE: Axial CT images of the thoracic spine were obtained without intravenous contrast. Coronal/sagittal reformations were created. One or more of the following dose reduction techniques were used: Automated expo sure control, adjustment of the mA and/or kV according to patient size, and/or utilization of iterative reconstruction technique. FINDINGS: Mild marlon ne demineralization limits evaluation. Thoracic kyphosis is preserved. Ther e is no significant scoliosis or subluxation. Multilevel spondylotic freed es are advanced at T7-T8. Mild endplate erosion and sclerosis are seen at T7-T 8. Minimal grade 1 anterolisthesis of T7 on T8 is present. There is no associa prosper paravertebral fat stranding/soft tissue density at T7-T8. Otherwise, no definite acute fracture or compression deformity is seen. No gross spinal c anal mass is seen. The paravertebral and paraspinal soft tissues are unremark able. There is no gross canal or foraminal stenosis. Right IJ dual-trang men central line terminates near the right atrium. Diffuse atherosclerotic lizzette cifications are present. The left atrium is enlarged. Diffuse groundglass pulm onary opacities may be due to pulmonary edema. Associated small bilateral pleu ral effusions are seen, right greater than left IMPRESSION: 1. Nonspec ific advanced spondylotic changes at T7-T8 with mild endplate erosion and scle rosis. Early osteomyelitis-discitis could have this appearance. 2. Otherwise, no acute osseous abnormalities. 3. Underlying multilevel spondylosis without gross canal or foraminal stenosis. Signed by: Dr. Thomas Smith M.D. on 05/15/2019 12:44 PM Dictated By: THOMAS SMITH MD Electronically Si gned By: THOMAS SMITH MD on 05/15/19 1244 Transcribed By: AYDE on 1244 COPY TO: LEONA COLINDRES MD [id number] 12:43:00* Test Item Value Reference Range Interpretation Comments GLUBED (test code = GLUBED) 141 mg/dL 74-106 H Performed by certified panel raiser operator at [facility] [id number] 11:03:00* Test Item Value Reference Range Interpretation Comments TROPONIN-I (test code = TROPI) <0.015 ng/mL 0-0.045 N COMMENTS TO COOK HELPER DESSERT: COLLECT 3 HOURS AFTER PREVIOUS [id number] 07:14:00* Test Item Value Reference Range Interpretation Comments GLUBED (test code = GLUBED) 117 mg/dL 74-106 H Performed by certified panel raiser operator at [facility] [id number] 02:13:00* Test Item Value Reference Range Interpretation Comments TROPONIN-I (test code = TROPI) <0.015 ng/mL 0-0.045 N COMMENTS TO COOK HELPER DESSERT: COLLECT 3 HOURS AFTER PREVIOUS SAMPLEBASIC METABOLIC [id number] 21:52:00* Test Item Value Reference Range Interpretation Comments SODIUM (test code = NA) 136 mmol/L 136-145 N POTASSIUM (test code = K) 3.2 mmol/L 3.5-5.1 L CHLORIDE (test code = CL) 96.0 mmol/L 98-107 L CARBON DIOXIDE (test code = CO2) 33.0 mmol/L 21-32 H ANION GAP (test code = GAP) 10.2 10-20 N GLUCOSE (test code = GLU) 124 mg/dL 74-106 H BLOOD UREA NITROGEN (test code = BUN) 15 mg/dL 7-18 N GLOMERULAR FILTRATION RATE (test code = GFR) 14 mL/min >=60 Estimated GFR by using Modified MDRD formula.Chronic kidney disease is defined as either kidney damageor GFR <60 mL/min/1.73 m2 for >3 months. CREATININE (test code = CREAT) 3.30 mg/dL 0.55-1.02 H Note change in reference range due to change in reagent. BUN/CREATININE RATIO (test code = BUN/CREA) 4.5 10-20 L CALCIUM (test code = CA) 8.9 mg/dL 8.5-10.1 N HEPATIC FUNCTION [id number] 21:52:00* Test Item Value Reference Range Interpretation Comments TOTAL PROTEIN (test code = PROT) 7.2 gram/dL 6.4-8.2 N ALBUMIN (test code = ALB) 3.4 g/dL 3.4-5.0 N GLOBULIN (test code = GLOB) 3.8 gram/dL 2.7-4.2 N ALBUMIN/GLOBULIN RATIO (test code = A/G) 0.9 0.75-1.50 N BILIRUBIN TOTAL (test code = BILT) 0.50 mg/dL 0.0-1.0 N BILIRUBIN DIRECT (test code = BILD) 0.13 mg/dL 0.0-0.20 N SGOT/AST (test code = AST) 16 IUnit/L 15-37 N SGPT/ALT (test code = ALT) 15 IUnit/L 12-78 N ALKALINE PHOSPHATASE TOTAL (test code = ALKP) 78 IUnit/L 45-117 N Note change in reference range due to change in reagent. [id number] 21:52:00* Test Item Value Reference Range Interpretation Comments LIPASE (test code = LIP) 156 U/L 73.0-393.0 N [id number] 21:52:00* Test Item Value Reference Range Interpretation Comments MAGNESIUM (test code = MAG) 2.2 mg/dL 1.8-2.4 N [id number] 21:52:00* Test Item Value Reference Range Interpretation Comments TROPONIN-I (test code = TROPI) <0.015 ng/mL 0-0.045 N BASIC METABOLIC [id number] 21:50:00* Test Item Value Reference Range Interpretation Comments SODIUM (test code = NA) 136 mmol/L 136-145 N POTASSIUM (test code = K) 3.2 mmol/L 3.5-5.1 L CHLORIDE (test code = CL) 96.0 mmol/L 98-107 L CARBON DIOXIDE (test code = CO2) mmol/L 21-32 ANION GAP (test code = GAP) 10-20 GLUCOSE (test code = GLU) mg/dL 74-106 BLOOD UREA NITROGEN (test code = BUN) mg/dL 7-18 GLOMERULAR FILTRATION RATE (test code = GFR) mL/min >=60 CREATININE (test code = CREAT) mg/dL 0.55-1.02 BUN/CREATININE RATIO (test code = BUN/CREA) 10-20 CALCIUM (test code = CA) mg/dL 8.5-10.1 HEPATIC FUNCTION [id number] 21:50:00* Test Item Value Reference Range Interpretation Comments TOTAL PROTEIN (test code = PROT) gram/dL 6.4-8.2 ALBUMIN (test code = ALB) g/dL 3.4-5.0 GLOBULIN (test code = GLOB) gram/dL 2.7-4.2 ALBUMIN/GLOBULIN RATIO (test code = A/G) 0.75-1.50 BILIRUBIN TOTAL (test code = BILT) mg/dL 0.0-1.0 BILIRUBIN DIRECT (test code = BILD) mg/dL 0.0-0.20 SGOT/AST (test code = AST) IUnit/L 15-37 SGPT/ALT (test code = ALT) IUnit/L 12-78 ALKALINE PHOSPHATASE TOTAL (test code = ALKP) IUnit/L 45-117 [id number] 21:50:00* Test Item Value Reference Range Interpretation Comments LIPASE (test code = LIP) U/L 73.0-393.0 [id number] 21:50:00* Test Item Value Reference Range Interpretation Comments MAGNESIUM (test code = MAG) mg/dL 1.8-2.4 [id number] 21:50:00* Test Item Value Reference Range Interpretation Comments TROPONIN-I (test code = TROPI) ng/mL 0-0.045 B-TYPE NATRIURETIC [id number] 21:36:00* Test Item Value Reference Range Interpretation Comments B-TYPE NATRIURETIC PEPTIDE (test code = BNP) 530.07 pgram/mL 0-100 H PROTHROMBIN [id number] 21:08:00* Test Item Value Reference Range Interpretation Comments PROTHROMBIN TIME PATIENT (test code = PTP) 11.0 seconds 9.0-14.0 N INTERNATIONAL NORMAL RATIO (test code = INR) 0.9 0.8-1.2 N The therapeutic range for oral anticoagulant therapy formost indications is an international normalized ratio (INR)of between 2.0 and 3.0. The recommended therapeutic INRrange for various clinical situations is listed below: Clinical Situation INR range Pulmonary e mbolism treatment (2.0-3.0)Venous thrombosis treatmentVenous thrombosis prophylaxis (high risk surgery)Prevention of systemic embolism from: Acute myocardial infarction Valvular heart disease Atrial fibrillation Mechanical prosthetic heart valves (2.5-3.5) IS PATIENT ON ANTICOAGULANTS? NTHROMBOPLASTIN TIME [id number] 21:08:00* Test Item Value Reference Range Interpretation Comments THROMBOPLASTIN TIME PARTIAL (test code = PTT) 31.3 seconds 25.0-36. 5 N IS PATIENT ON ANTICOAGULANTS? NCBC W/O [id number] 21:07:00* Test Item Value Reference Range Interpretation Comments WHITE BLOOD CELL (test code = WBC) 8.7 K/mm3 4.5-12.5 N RED BLOOD CELL (test code = RBC) 3.40 mill/mm3 3.7-5.2 L HEMOGLOBIN (test code = HGB) 11.1 gram/dL 11.5-15.5 L HEMATOCRIT (test code = HCT) 33.5 % 36.0-46.0 L MEAN CELL VOLUME (test code = MCV) 98.5 fL 80-98 H MEAN CELL HGB (test code = MCH) 32.6 picogram 27.0-33.0 N MEAN CELL HGB CONCETRATION (test code = MCHC) 33.1 gram/dL 33.0-36. 0 N RED CELL DISTRIBUTION WIDTH (test code = RDW) 15.0 % 11.6-16. 2 N PLATELET COUNT (test code = PLT) 40 K/mm3 150-450 LL Results called to [id number] by [employer] [email or web address] 11/18/18 2106Critical results verified and read back by Nurse? Y MEAN PLATELET VOLUME (test code = MPV) TEST NOT PERFORMED fL 6.7-11 .0 - XR CHEST 1 [id number] 20:13:00 FAX: Leona Ziegler MD [phone] [place]: St: [facility] FAX: Naz Cm MD [phone] Name: JUAN MANRIQUEZ [facility] : 1945 Age/S: 73/F [address] Unit #: [id number] Loc: [place] [address] Phys: Naz Cm MD Acct: [id number] Dis Date: Status: REG ER PHONE #: [phone] Exam Date: 11/18/20182007 FAX #: [phone] Reason: CHEST PAIN EXAMS: CPT CODE: [id number] XR CHEST 1 V 83371 REASON FOR EXAM: CHEST PAIN EXAM ORDER DATE: 11/18/2018 7:43 PM Ordering Patito: Naz Cm MD PROCEDURE: - XR CHEST 1 V COMPARISON: 11/01/2017 FINDINGS: Portable AP frontal view of the chest obtained at 8:08 PM shows clear lungs without evidence of consolidation. There is no evidence of effusion. The heart size is minimally enlarged. Stable appearance of the right IJ dialysis catheter. Pulmonary vasculatures are unremarkable. IMPRESSION: No active disease. at 2012 Reported and signed by: Eleuterio Phillips M.D. CC: Leona Colindres; Naz Cm MD Technologist: DAYANNA CAUSEY Trnscrd Date/Time/By: 11/18/2018 (2012) : By: Donald Orig Print D/T: S: 11/18/2018 (2015) PAGE 1 Signed Report CHEST 2 [id number] 14:29:00 [place] [address] Patient Name: JUAN MANRIQUEZ MR #: [id number] : 1945 Age/Sex: 73/F Req #: [id number] Adm Physician: Ordered by: BOOKER WALDEN MD Report #: [id number] Location: OR Room/Bed: Procedure: [id number] DX/CHES T 2 VIEWS Exam Date: 11/18/18 Exam Time: 1305 REPORT STATUS: Signed EXAMINATION: CH EST 2 VIEWS INDICATION: Pre-admit. COMPARISON: None FI NDINGS: TUBES and LINES: Right IJ tunneled hemodialysis catheter terminates i n the right atrium. LUNGS: Lungs are not well inflated. Lungs are clear . There is no evidence of pneumonia or pulmonary edema. PLEURA: No ple ural effusion or pneumothorax. HEART AND MEDIASTINUM: The cardiomediastin al silhouette is unremarkable. There are atherosclerotic calcifications within the aorta. BONES AND SOFT TISSUES: No acute osseous abnormality. UPP ER ABDOMEN: No free air under the diaphragm. IMPRESSION: No acute ra diographic abnormality. Signed by: Dr. Elizabeth Grant MD on 11/18/2018 2:30 PM Dictated By: ELIZABETH GRANT MD 1430 COPY TO: FARRAR MD SINUSES (PARANASAL)MIN [id number] 17:38:00 [place] [id number] Patient Name: JUAN MANRIQUEZ MR #: [id number] : 1945 Age/Sex: 73/F Req #: [id number] Adm Physician: Ordered by: LEONA COLINDRES MD Report #: [id number] Location: [facility] Room/Bed: Procedure: [id number] DX/SI YAELS (PARANASAL)MIN 3VIEWS Exam Date: 08/01/18 Exam Time: 1633 REPORT STATUS: Signed Exam: Paranasal sinuses, 3 views. History: Acute maxillary sinusitis Comparison: None. Findings: There is normal bone mineralization. H ypoplastic frontal sinuses. Maxillary, sphenoid and ethmoid sinuses are aerate d. No acute, displaced fracture or dislocation. Impacted molars. Impre ssion: 1. Hypoplastic frontal sinuses. Other sinuses are aerated. Maxillofa cial CT is recommended if there is clinical concern for sinusitis. Sig ashely by: Dr. Tommy Hill M.D. on 08/01/2018 5:39 PM Dictated By: LATA HILL MD 38 Tr anscribed By: AYDE on 08/01/181738 COPY TO: LEONA COLINDRES MD CT CHEST [id number] 09:47:00 [place] [id number] Patient Name: JUAN MANRIQUEZ MR #: [id number] : 1945 Age/Sex: 73/F Req #: [id number] Adm Physician: Ordered by: FRANCHESKA HESTER MD Report #: [id number] Location: CT Room/Bed: Procedure: [id number] CT/C T CHEST WO Exam Date: 05/05/18 Exam Time: 0850 REPORT STATUS: Signed PROCEDURE: CT C HEST WITHOUT CONTRAST CT scan of the chest WITHOUT intravenous contrast, using standard protocol. TECHNIQUE: The chest was scanned utilizing a [facility] [employer] helical scanner from the apex to the level of the adrenal glands. No IV contrast was administered per protocol. Coronal and sagittal multiplan ar reformations were obtained. COMPARISON: CT Chest 01/27/2018. IN DICATIONS: nodule FINDINGS: Lines/tubes: Right IJ dialysis cathete r with distal tip in the right atrium. Lungs and Airways: Focal areas o f subpleural reticulation and mild coarsening of the interstitium/focal kenji und glass opacities in bilateral upper lobes and [...] or axillary adenopathy. Mildly prominent right lower pa ratracheal lymph node, with internal punctate hyperdensity, likely representi ng partial calcification. Abdomen: Limited views of the upper abdomen show no abnormality within the visualized liver, spleen, pancreas, or kidneys. The adrenal glands are unremarkable. Atherosclerotic calcification of the a irasema and aortic branches. Bones: No acute bony findings. Multilevel degene rative disc changes in the thoracic spine. IMPRESSION: Stable a ppearance of 8 mm solid noncalcified nodule in the right middle lobe. Recomme nd follow-up noncontrast low dose nodule CT chest in 6 months to assess for s tability. Findings in bilateral lungs likely represent mild fibrotic crespo ges. Dictated by: ELIZABETH GRANT M.D. on 05/05/2018 at 9:47 E lectronically approved by: ELIZABETH GRATN M.D. on 05/05/2018 at 9:47 Dictated By: ELIZABETH GRANT MD 6 Transcribed By: LISS on 05/05/18946 COPY TO: FRANCHESKA HESTER MD CT CHEST [id number] 15:38:00 [place] [address] Patient Name: JUAN MANRIQUEZ MR #: [id number] : 1945 Age/Sex: 72/F Req #: [id number] Adm Physician: Ordered by: LEONA COLINDRES MD Report #: [id number] Location: CT Room/Bed: Procedure: [id number] CT/CT CHEST WO Exam Date: 01/27 Exam Time: 1150 REPORT STATUS: Signed MO OCEDURE: CT CHEST WITHOUT CONTRAST CT scan of the chest WITHOUT intravenous co ntrast, using standard protocol. TECHNIQUE: The chest was scanned uti lizing a multidetector helical scanner from the apex to the level of the adre nal glands. No IV contrast was administered per physician's request. Coronal and sagittal multiplanar reformations were obtained. COMPARISON: [facility], DX, CHEST SINGLE (PORTABLE), 01/09/2016, 21:19. GREG CATIONS: PULMONARY NODULE FINDINGS: Lines/tubes: Right IJ dialysis catheter with distal tip in the right atrium. Lungs and Airways: Focal areas of subpleural reticulation and mild coarsening of the interstitium/fo lizzette ground glass opacities in bilateral upper lobes (for example, series 3, i mages 29, 27, 45), with mild traction bronchiectasis in the right upper lobe (for example series 3, image 45). Similar findings are noted in the posteri or lower lobes bilaterally, right greater than left (for example, series 3, i mages 68 and 55). 0.8 x 0.5 x 0.7 cm solid noncalcified nodule in the right mi ddle lobe (series 3, image 53 and sagittal image 31). No other pulmonary no dules. No masses or consolidation. Airways are clear, without endobronchial lesions. Pleura: No effusion, or pneumothorax. Heart and mediastinum : Thyroid is unremarkable. Heart size is normal. Trace pericardial fluid. Ext ensive atherosclerotic calcification of the coronary arteries and to a lesser degree thoracic aorta and aortic valve. The aorta is non-aneurysmal. The main pulmonary artery measures 3.0 cm. Lymph nodes: No mediastinal, hilar or axillary adenopathy. Mildly prominent right lower paratracheal lymph node (series 2, image 41 and coronal image 49), with internal punctate hyperdensit y, likely representing partial calcification. Abdomen: Limited views o f the upper abdomen show no abnormality within the visualized liver, spleen, pancreas, or kidneys. The adrenal glands are unremarkable. Atherosclerotic ca lcification of the aorta and aortic branches. Bones: No aggressive lyti c lesion. Multilevel degenerative disc changes in the thoracic spine. Soft ti ssues are unremarkable. IMPRESSION: 1. 0.8 cm solid noncalcified no dule in the right middle lobe. Recommend followup noncontrast low dose nodule CT chest in 3 months to document stability, per Fleischner Society 2017 guid elines. 2. Findings in bilateral lungs likely represent mild fibrotic changes. Tommy Hill M.D. Dictated by: Tommy Hill M.D. on 01/27/2018 at 15:38 Electronically approved by: Tommy Hill M.D. on 01/27/2018 at 15:38 Dictated By: TOMMY Enriquez lectronically Signed By: TOMMY HILL MD on 01/27/18 1538 Transcribed By: RHONDA JONES on 01/27/18 1538 COPY TO: LEONA COLINDRES MD
[2020-04-22 12:07] LABS: ALBUMIN 3.9 g/dL (3.5-5.0); ALBUMIN/GLOBULIN RATIO 1.1 (0.8-2.0); ANION GAP 12.6 mmol/L (8-16); CALCIUM 8.3 mg/dL (8.4-10.2); CREATININE, SERUM 3.13 mg/dL (0.57-1.11); POTASSIUM 3.6 mmol/L (3.5-5.1)
[2020-04-22 12:13] LABS: CREATINE KINASE MB 1.2 ng/mL (0-5.0)
--- NOTE | 2020-04-22 13:25 | Emergency Department Note ---
History of Present Illnes History of Present Illness Chief Complaint: Chest Pain History of Present Illness This is a 75 year old female . Chief Complaint Comment PATIENT IN FROM HOME WITH COMPLAINTS OF CHEST PAIN STARTING ABOUT 30 MINUTES PRIOR TO ARRIVAL; APPEARS IN NO DISTRESS, RESP EVEN AND NONLABORED, STATES THAT THE CHEST PAIN STARTED IN DIALYSIS AND SHE WAS GIVEN SUBLINGUAL NITRO AND NOW FEELS BETTER. Historian: Patient Arrival Mode: Car Onset (how long ago): day(s) (1) Location: CHEST Quality: DULL Radiation: Denies non-radiation, Denies back, Denies neck, Denies extremity, D enies abdomen, Denies periumbilical, Denies flank, Denies proximal, Denies distal, Denies other Severity: moderate Onset quality: gradual Duration (how long): day(s) (2) Timing of current episode: intermittent Progression: waxing and waning Chronicity: new Context: Denies recent illness, Denies recent surgery, Denies recent immobilization, Denies recent travel, Denies trauma/injury, Denies new medications, Denies hx of DVT/PE, Denies non-compliance w/ medications, Denies other Relieving factors: none Exacerbating factors: none Past Medical/Family History Physician Review I have reviewed the patient's past medical and family history. Any updates have been documented here. Past Medical History Recent Fever: No Clinical Suspicion of Infectio: No New/Unexplained Change in Ment: No Past Medical History: Hypertension, Diabetes, ESRD, Hemodyalisis Other Medical History: LOW BLOOD PLATELETS ANEMIA hip fx Other Surgery: BLADDER SUSPENSION Social History Smoking Cessation: Never Smoker Counseling Performed: No Alcohol Use: None Any Illegal Drug Use: No Physically hurt or threatened: No Other Last Tetanus: UTD Any Pre-Existing Lines (PICC,: Yes (RIGHT CHEST HD CATH) Review of Systems Review of Systems Constitutional: Reports no symptoms EENTM: Reports no symptoms Cardiovascular: Reports as per HPI Respiratory: Reports no symptoms Gastrointestinal: Reports no symptoms Genitourinary: Reports no symptoms Musculoskeletal: Reports no symptoms Integumentary: Reports no symptoms Neurological: Reports no symptoms Psychological: Reports no symptoms Endocrine: Reports no symptoms Hematological/Lymphatic: Reports no symptoms Physical Exam Related Data Allergies: Coded Allergies: Penicillins (Verified Allergy, Unknown, 04/22/20) Triage Vital Signs Vital Signs Date Time Temp Pulse Resp B/P (MAP) Pulse Ox O2 Delivery O2 Flow Rate FiO2 04/22/20 11:08 97.7 96 18 119/72 100 Room Air Vital signs reviewed: Yes Physical Exam CONSTITUTIONAL Constitutional: Present well-developed, Present well-nourished HENT HENT: Present normocephalic, Present atraumatic, Present oropharynx clear/moist, Present nose normal HENT L/R: Present left ext ear normal, Present right ext ear normal EYES Eyes: Reports PERRL, Reports conjunctivae normal NECK Neck: Present ROM normal PULMONARY Pulmonary: Present effort normal, Present breath sounds normal CARDIOVASCULAR Cardiovascular: Present regular rhythm, Present heart sounds normal, Present capillary refill normal, Present normal rate GASTROINTESTINAL Abdominal: Present soft, Present nontender, Present bowel sounds normal GENITOURINARY Genitourinary: Present exam deferred SKIN Skin: Present warm, Present dry MUSCULOSKELETAL Musculoskeletal: Present ROM normal NEUROLOGICAL Neurological: Present alert, Present oriented x 3, Present no gross motor or sensory deficits PSYCHOLOGICAL Psychological: Present mood/affect normal, Present judgement normal Results Laboratory Result Diagram: 04/22/20 1113 04/22/20 1113 Laboratory Laboratory Tests Test 04/22/20 11:13 White Blood Count 6.57 x10e3/uL (4.8-10.8) Red Blood Count 3.91 x10e6/uL (3.6-5.1) Hemoglobin 12.5 g/dL (12.0-16.0) Hematocrit 39.1 % (34.2-44.1) Mean Corpuscular Volume 100.0 fL (81-99) Mean Corpuscular Hemoglobin 32.0 pg (28-32) Mean Corpuscular Hemoglobin Concent 32.0 g/dL (31-35) Red Cell Distribution Width 15.1 % (11.7-14.4) Platelet Count 36 x10e3/uL (140-360) Neutrophils (%) (Auto) 74.9 % (38.7-80.0) Lymphocytes (%) (Auto) 16.6 % (18.0-39.1) Monocytes (%) (Auto) 4.4 % (4.4-11.3) Eosinophils (%) (Auto) 2.7 % (0.0-6.0) Basophils (%) (Auto) 1.1 % (0.0-1.0) Neutrophils # (Auto) 4.9 (2.1-6.9) Lymphocytes # (Auto) 1.1 (1.0-3.2) Monocytes # (Auto) 0.3 (0.2-0.8) Eosinophils # (Auto) 0.2 (0.0-0.4) Basophils # (Auto) 0.1 (0.0-0.1) Absolute Immature Granulocyte (auto 0.02 x10e3/uL (0-0.1) Sodium Level 137 mmol/L (136-145) Potassium Level 3.6 mmol/L (3.5-5.1) Chloride Level 97 mmol/L (98-107) Carbon Dioxide Level 31 mmol/L (22-29) Anion Gap 12.6 mmol/L (8-16) Blood Urea Nitrogen 11 mg/dL (7-26) Creatinine 3.13 mg/dL (0.57-1.11) Estimat Glomerular Filtration Rate 14 ML/MIN (60-) BUN/Creatinine Ratio 4 (6-25) Glucose Level 117 mg/dL (74-118) Calcium Level 8.3 mg/dL (8.4-10.2) Total Bilirubin 0.9 mg/dL (0.2-1.2) Aspartate Amino Transf (AST/SGOT) 17 IU/L (5-34) Alanine Aminotransferase (ALT/SGPT) 12 IU/L (0-55) Alkaline Phosphatase 134 IU/L (40-150) Creatine Kinase 39 IU/L (29-168) Creatine Kinase MB 1.20 ng/mL (0-5.0) Troponin I 0.002 ng/mL (0-0.300) B-Type Natriuretic Peptide 1251.0 pg/mL (0-100) Total Protein 7.4 g/dL (6.5-8.1) Albumin 3.9 g/dL (3.5-5.0) Globulin 3.5 g/dL (2.3-3.5) Albumin/Globulin Ratio 1.1 (0.8-2.0) Lab results reviewed: Yes Imaging Imaging results reviewed: Yes Assessment & Plan Medical Decision Making MDM CAD GERD Reassessment Reassessment time: 13:24 Reassessment BETTER Assessment & Plan Final Impression: (1) Chest pain (2) ESRD (end stage renal disease) (3) Thrombocytopenia Depart Disposition: ADMITTED Last Vital Signs Date Time Temp Pulse Resp B/P (MAP) Pulse Ox O2 Delivery O2 Flow Rate FiO2 04/22/20 11:50 79 15 166/85 100 Room Air 04/22/20 11:08 97.7 Home Meds Reported Medications Aspirin (ASPIRIN) 81 Mg Tab.chew 11/21/18 Clonidine (CLONIDINE) 1 Each Patch.tdwk, 0.1 11/21/18 Metoprolol Tartrate (METOPROLOL TARTRATE) 25 Mg Tablet, 25 MG PO PRN, TAB 05/11/18 Amlodipine Besylate (AMLODIPINE BESYLATE) 5 Mg Tablet, 10 MG PO DAILY, #30 TAB 09/15/14 Medications in the ED Aspirin 81 mg PRN ONCE PO Last administered on 04/22/20at 11:48; Admin Dose 81 MG; Start 04/22/20 at 11:30; Stop 04/22/20 at 11:31; Status DC MARGY SAHNI MD Apr 22, 2020 13:25
--- OUTSIDE RECORDS SUMMARY | 2020-04-22 13:53 | XMS REPORT | Continuity of Care Document ---
Author Author [facility] t Organization [facility] Address [address] [place] [address] Phone Unavailable Care Team Providers Care Medical Office Secretary Name Role Phone MD Tor COLINDRES PCP MARGY SAHNI Attphys Unavailable Tor MOSCOSO Attphys Unavailable Tor COLINDRES Attphys Unavailable BOOKER WALDEN Attphys Unavailable MIRFRANCHESKA MCKINLEY Attphys Unavailable Payers Payer Name Policy Type Policy Number Effective Date Expiration Date Tor pepper Aarp Medicare Complete [id number] 2015 00:00:00 [facility] Problems Condition Name Condition Details Condition Category Status Onset Date Resolution Date Last Treatment Date Treating Clinician Comments Source CHF (congestive heart failure) Problem Active 2016-01-10 00:00:00 [facility] [id number]-[id number] renal failure Problem Active 2016-01-10 00:00:00 [facility] Hyperkalemia Problem Active 2016-01-10 00:00:00 [facility] Hyperkalemia Problem Active 2014-09-15 00:00:00 [facility] Anemia Problem Active 2014-09-15 00:00:00 [facility] End-stage renal disease Problem Active 2014-09-15 00:00:00 [facility] Chest wall pain following surgery Problem Active [facility] Allergies, Adverse Reactions, Alerts Allergy Name Allergy Type Status Severity Reaction(s) Onset Date Inacti ve Date Treating Clinician Comments Source Penicillin Allergy to substance Active 2020-02-07 00:00:00 [facility] Penicillins DA Active 2019-09-09 00:00:00 [facility] Penicillins DA Active 2018-11-18 00:00:00 [facility] Penicillins DA Active 2017-11-01 00:00:00 [facility] Social History Social Habit Start Date Stop Date Quantity Comments Source Sex Assigned At 1945 00:00:00 1945 00:00:00 Female [facility] Medications Ordered Medication Name Filled Medication Name Start Date Stop Da te Current Medication? Ordering Clinician Indication Dosage Frequency Signature (SIG) Comments Components Source Amlodipine Besylate Amlodipine Besylate Yes 10 Daily [facility] Aspirin Aspirin Yes [facility] Clonidine Clonidine Yes .1 [facility] Metoprolol Tartrate Metoprolol Tartrate Yes 25 As Needed [facility] Furosemide (Lasix) 40 Mg TABLET Furosemide (Lasix) 40 Mg TABLET 2018-11-21 00:00:00 No 40 As Needed [facility] Sodium Bicarbonate Sodium Bicarbonate 2018-11-21 00:00:00 No 650 Daily [facility] Glipizide (Glipizide Er) 5 Mg TAB.ER.24 Glipizide (Glipizide Er) 5 Mg TAB.ER.24 2018-05-11 00:00:00 No 5 Daily [facility] Ferrous Sulfate Ferrous Sulfate 2017-05-19 00:00:00 No 325 Daily [facility] Sodium Bicarbonate Sodium Bicarbonate 2017-05-19 00:00:00 No 1 Daily [facility] Vital Signs Vital Name Observation Time Observation Value Comments Source Body Temperature 2020-02-07 19:31:00 98.4 [degF] [facility] Weight 2020-02-07 16:08:00 163 [lb_av] [facility] BMI (Body Mass Index) 2020-02-07 16:08:00 28.0 kg/m2 [facility] Procedures Procedure Date / Time Performed Performing Clinician Sourc e Computed tomography of thoracic spine without contrast 2019-04-19 8 00:00:00 [facility] Plan of Care Planned Activity Planned Date Details Comments Source Instructions Chest Pain - Chest Wall [facility] Encounters Start Date/Time End Date/Time Encounter Type Admission Type [facility] Care Department Encounter ID Source 2020-02-07 16:20:00 2020-02-07 19:36:00 Departed Emergency Room GEOVANNA MOSCOSO [facility] [id number] CH I [facility] 2019-05-15 11:04:00 2019-05-15 11:04:00 Registered Clinic 3 LEONA COLINDRES [facility] [id number] [facility] Results Test Description Test Time Test Comments Results Result Comments Source CHEST SINGLE (PORTABLE) 2020-04-22 11:33:00 [facility] [address], [place] [address] Patient Name: JUAN MANRIQUEZ MR #: [id number] : 1945 Age/Sex: 75/F Req #: [id number] Adm Physician: Ordered by: MARGY SAHNI MD Report #: [id number] Location: ER Room/Bed: Procedure: [id number] DX/CHEST SINGLE (PORTABLE) Exam Date: 04/22/20 Exam [...] SAHNI MD CHEST SINGLE (PORTABLE) 2020-02-07 17:04:00 [place] [address] Patient Name: JUAN MANRIQUEZ MR #: [id number] : 1945 Age/Sex: 75/F Req #: [id number] Adm Physician: Ordered by: GEOVANNA MOSCOSO DO Report #: [id number] Location: ER Room/Bed: Procedure: [id number] DX/CHEST SINGLE (PORTABLE) Exam Date: 02/07/20 Exam Time: 1650 REPORT STATUS: Signed EXAMINATION: CHEST SINGLE (PORTABLE) INDICATION: Y pain over port insertion site [id number] COMPARISON: 11/18/2018 FINDINGS: TUBES and LINES: [...] KNEE 3 V 2020-01-30 14:15:00 FAX: Derek Cifuentes MD [phone] [place]: St: REG -- Name: JUAN MANRIQUEZ [facility] [place] : 1945 Age/S: 75/F [address] Unit #: [id number] [facility] [place] [address] Phys: Derek Dias MD Acct: [id number] Dis Date: Status: REG RCR PHONE #: [phone] Exam Date: 01/30/2020 1340 FAX #: Reason: DISTAL FEMUR FX EXAMS: CPT CODE: [id number] XR KNEE 3 V LT [address] CLINICAL HISTORY: DISTAL FEMUR FX TECHNIQUE: Tunnel [...] extensive vascular calcifications are present bilaterally. Location: [facility] at 1415 Reported and signed by: Arun Hand MD CC: Derek Dias MD Technologist: Bebe elaine RT(R) Trnscrd Date/Time/By: 01/30/2020 (1414) : By: [email or web address] Orig Print D/T: S: 01/30/2020 (6226) PAGE 1 Signed Report - XR ANKLE 3 + V LT 2020-01-30 14:12:00 FAX: Derek Cifuentes MD [phone] [place]: St: REG -- Name: JUAN MANRIQUEZ [facility] [place] : 1945 Age/S: 75/F [address] Unit #: [id number] [facility] [place] [address] Phys: Derek Dias MD Acct: [id number] Dis Date: Status: REG RCR PHONE #: [phone] Exam Date: 01/30/2020 1338 FAX #: Reason: DISTAL FEMUR FX EXAMS: CPT CODE: [id number] XR ANKLE 3 + V LT [address] CLINICAL HISTORY: DISTAL FEMUR FX TECHNIQUE: AP, [...] By: [email or web address] Orig Print D/T: S: 01/30/2020 (7) PAGE 1 Signed Report - XR FEMUR MIN 2 VWS LT 2019-12-19 15:48:00 FAX : Derek Cifuentes MD [phone] [place]: St: REG -- Name: JUAN MANRIQUEZ [facility] [place] : 1945 Age/S: 74/F [address] Unit #: [id number] Loc: [place] [address] Phys: Derek Dias MD Acct: [id number] Dis Date: Status: REG RCR PHONE #: [phone] Exam Date: 12/19/2019 152 FAX #: Reason: PAIN EXAMS: CPT CODE: [id number] XR FEMUR MIN [address] [place] [address] CLINICAL HISTORY: PAIN; left distal femoral fracture [...] CC: Derek Dias MD Technologist: Dinorah Olivo [facility] Date/Time/By: 12/19/2019 (9405) : By: [email or web address] Orig Print D/T: S: 12/19/2019 (6093) PAGE 1 Signed Report - XR FEMUR MIN 2 VWS LT 2019-11-30 12:32:00 FAX : Derek Cifuentes MD [phone] [place]: St: DIS -- Name: JUAN MANRIQUEZON [facility] [place] : 1945 Age/S: 74/F [address] Unit #: [id number] Loc: [place] [address] Phys: Derek Dias MD Acct: [id number] Dis Date: Status: DIS RCR PHONE #: [phone] Exam Date: 11/30/2019 1205 FAX #: Reason: LEFT DISTAL FEMORAL FX EXAMS: CPT CODE: [id number] XR FEMUR MIN [address] [place] [address] CLINICAL HISTORY: LEFT DISTAL FEMORAL FX TECHNIQUE: [...] Technologist: Bebe Beasley RT(R) Trnscrd Date/Time/By: 11/30/2019 (2250) : By: [email or web address] Orig Print D/T: S: 11/30/2019 (7948) PAGE 1 Signed Report - XR FEMUR MIN 2 VWS LT 2019-09-26 14:22:00 FAX : Derek Cifuentes MD [phone] [place]: St: REG -- Name: JUAN MANRIQUEZ [facility] [place] : 1945 Age/S: 74/F [address] Unit #: [id number] Loc: [place] [address] Phys: Deerk Dias MD Acct: [id number] Dis Date: Status: REG RCR PHONE #: [phone] Exam Date: 09/26/2019 1335 FAX #: Reason: pain EXAMS: CPT CODE: [id number] XR FEMUR MIN [address] [place] [address] CLINICAL HISTORY: pain TECHNIQUE: 2 views of [...] Technologist: Param Malave RT(R) Trnscrd Date/Time/By: 09/26/2019 (3480) : By: [email or web address] Orig Print D/T: S: 09/27/2019 (0823) PAGE 1 Signed Report RENAL FUNCTION PANEL [...] PHOS) 2.9 mg/dL 2.5-4.9 N CBC W/AUTO [id number] 08:33:00* Test Item Value Reference Range Interpretation [...] = MDIFF) NO, ONLY SCAN NEEDED DIFFERENTIAL [id number] 08:33:00* Test Item Value Reference Range Interpretation Comments STAIN ACCEPTABILITY (test code = STN ACCEPTABLE) STAIN ACCEPTABLE POLYCHROMASIA (test code = POLC) 1+ ANISOCYTOSIS (test code = ANISO) 1+ PLATELET ESTIMATE (test code = PLTEST) DECREASED PLATELET MORPHOLOGY (test code = PLTMORPH) SIZE VARIABLE CBC W/AUTO [id number] 08:02:00* Test Item Value Reference Range Interpretation [...] = MDIFF) NO, ONLY SCAN NEEDED DIFFERENTIAL [id number] 08:02:00* Test Item Value Reference Range Interpretation Comments STAIN ACCEPTABILITY (test code = STN ACCEPTABLE) CABOT RINGS (test code = CAB) MORPHOLOGY COMMENT (test code = MOC) PLATELET ESTIMATE (test code = PLTEST) PLATELET MORPHOLOGY (test code = PLTMORPH) CBC W/AUTO [id number] 08:02:00* Test Item Value Reference Range Interpretation [...] = MDIFF) NO, ONLY SCAN NEEDED DIFFERENTIAL [id number] 08:02:00* Test Item Value Reference Range Interpretation Comments STAIN ACCEPTABILITY (test code = STN ACCEPTABLE) CABOT RINGS (test code = CAB) MORPHOLOGY COMMENT (test code = MOC) PLATELET ESTIMATE (test code = PLTEST) PLATELET MORPHOLOGY (test code = PLTMORPH) CBC W/AUTO [id number] 08:02:00* Test Item Value Reference Range Interpretation [...] = MDIFF) NO, ONLY SCAN NEEDED DIFFERENTIAL [id number] 08:02:00* Test Item Value Reference Range Interpretation Comments STAIN ACCEPTABILITY (test code = STN ACCEPTABLE) MORPHOLOGY COMMENT (test code = MOC) PLATELET ESTIMATE (test code = PLTEST) PLATELET MORPHOLOGY (test code = PLTMORPH) CBC W/AUTO [id number] 08:02:00* Test Item Value Reference Range Interpretation [...] = MDIFF) NO, ONLY SCAN NEEDED DIFFERENTIAL [id number] 08:02:00* Test Item Value Reference Range Interpretation Comments STAIN ACCEPTABILITY (test code = STN ACCEPTABLE) CABOT RINGS (test code = CAB) MORPHOLOGY COMMENT (test code = MOC) PLATELET ESTIMATE (test code = PLTEST) PLATELET MORPHOLOGY (test code = PLTMORPH) CBC W/AUTO [id number] 06:30:00* Test Item Value Reference Range Interpretation [...] = MDIFF) NO, ONLY SCAN NEEDED DIFFERENTIAL [id number] 06:30:00* Test Item Value Reference Range Interpretation Comments STAIN ACCEPTABILITY (test code = STN ACCEPTABLE) STAIN ACCEPTABLE POLYCHROMASIA (test code = POLC) 1+ ANISOCYTOSIS (test code = ANISO) 1+ MORPHOLOGY COMMENT (test code = MOC) TEST NOT PERFORMED PLATELET ESTIMATE (test code = PLTEST) DECREASED PLATELET MORPHOLOGY (test code = PLTMORPH) GIANT PLATELETS SEEN CBC W/AUTO [id number] 05:08:00* Test Item Value Reference Range Interpretation [...] = MDIFF) NO, ONLY SCAN NEEDED DIFFERENTIAL [id number] 05:08:00* Test Item Value Reference Range Interpretation Comments STAIN ACCEPTABILITY (test code = STN ACCEPTABLE) CABOT RINGS (test code = CAB) MORPHOLOGY COMMENT (test code = MOC) PLATELET ESTIMATE (test code = PLTEST) PLATELET MORPHOLOGY (test code = PLTMORPH) CBC W/AUTO [id number] 05:08:00* Test Item Value Reference Range Interpretation [...] = MDIFF) NO, ONLY SCAN NEEDED DIFFERENTIAL [id number] 05:08:00* Test Item Value Reference Range Interpretation Comments STAIN ACCEPTABILITY (test code = STN ACCEPTABLE) MORPHOLOGY COMMENT (test code = MOC) PLATELET ESTIMATE (test code = PLTEST) PLATELET MORPHOLOGY (test code = PLTMORPH) CBC W/AUTO [id number] 05:07:00* Test Item Value Reference Range Interpretation [...] = MDIFF) NO, ONLY SCAN NEEDED DIFFERENTIAL [id number] 05:07:00* Test Item Value Reference Range Interpretation Comments STAIN ACCEPTABILITY (test code = STN ACCEPTABLE) CABOT RINGS (test code = CAB) MORPHOLOGY COMMENT (test code = MOC) PLATELET ESTIMATE (test code = PLTEST) PLATELET MORPHOLOGY (test code = PLTMORPH) CBC W/AUTO [id number] 05:07:00* Test Item Value Reference Range Interpretation [...] = MDIFF) NO, ONLY SCAN NEEDED DIFFERENTIAL [id number] 05:07:00* Test Item Value Reference Range Interpretation Comments STAIN ACCEPTABILITY (test code = STN ACCEPTABLE) CABOT RINGS (test code = CAB) MORPHOLOGY COMMENT (test code = MOC) PLATELET ESTIMATE (test code = PLTEST) PLATELET MORPHOLOGY (test code = PLTMORPH) BASIC METABOLIC [id number] 05:56:00* Test Item Value Reference Range Interpretation [...] CA) 8.2 mg/dL 8.5-10.1 L BASIC METABOLIC [id number] 05:47:00* Test Item Value Reference Range Interpretation [...] code = CA) mg/dL 8.5-10.1 CBC W/AUTO [id number] 05:15:00* Test Item Value Reference Range Interpretation [...] code = NRBC#) 0.00 K/mm3 0.0-0.1 N [id number] 05:17:00* Test Item Value Reference Range Interpretation Comments PHOSPHORUS (test code = PHOS) 3.6 mg/dL 2.5-4.9 N FE W/TOTAL IRON BINDING CAP.2019-09-15 05:17:00* Test Item Value Reference Range Interpretation Comments SERUM IRON (test code = IRON) 26 ug/dL 50-175 L TOTAL IRON BINDING CAPACITY (test code = TIBC) 139 mcg/dL 250-450 L IRON SATURATION (test code = FESAT) 18.71 % 13-45 N [id number] 05:17:00* Test Item Value Reference Range Interpretation Comments FERRITIN (test code = EDITH) 1860 ng/mL 8-388 H CBC W/AUTO [id number] 04:54:00* Test Item Value Reference Range Interpretation [...] = MDIFF) NO, ONLY SCAN NEEDED DIFFERENTIAL [id number] 04:54:00* Test Item Value Reference Range Interpretation Comments STAIN ACCEPTABILITY (test code = STN ACCEPTABLE) STAIN ACCEPTABLE ANISOCYTOSIS (test code = ANISO) 1+ MICROCYTOSIS (test code = MICR) 1+ MORPHOLOGY COMMENT (test code = MOC) TEST NOT PERFORMED PLATELET ESTIMATE (test code = PLTEST) DECREASED PLATELET MORPHOLOGY (test code = PLTMORPH) NORMAL CBC W/AUTO [id number] 04:23:00* Test Item Value Reference Range Interpretation [...] = MDIFF) NO, ONLY SCAN NEEDED DIFFERENTIAL [id number] 04:23:00* Test Item Value Reference Range Interpretation Comments STAIN ACCEPTABILITY (test code = STN ACCEPTABLE) CABOT RINGS (test code = CAB) MORPHOLOGY COMMENT (test code = MOC) PLATELET ESTIMATE (test code = PLTEST) PLATELET MORPHOLOGY (test code = PLTMORPH) CBC W/AUTO [id number] 04:23:00* Test Item Value Reference Range Interpretation [...] = MDIFF) NO, ONLY SCAN NEEDED DIFFERENTIAL [id number] 04:23:00* Test Item Value Reference Range Interpretation Comments STAIN ACCEPTABILITY (test code = STN ACCEPTABLE) MORPHOLOGY COMMENT (test code = MOC) PLATELET ESTIMATE (test code = PLTEST) PLATELET MORPHOLOGY (test code = PLTMORPH) CBC W/AUTO [id number] 04:22:00* Test Item Value Reference Range Interpretation [...] = MDIFF) NO, ONLY SCAN NEEDED DIFFERENTIAL [id number] 04:22:00* Test Item Value Reference Range Interpretation Comments STAIN ACCEPTABILITY (test code = STN ACCEPTABLE) CABOT RINGS (test code = CAB) MORPHOLOGY COMMENT (test code = MOC) PLATELET ESTIMATE (test code = PLTEST) PLATELET MORPHOLOGY (test code = PLTMORPH) CBC W/AUTO [id number] 04:22:00* Test Item Value Reference Range Interpretation [...] = MDIFF) NO, ONLY SCAN NEEDED DIFFERENTIAL [id number] 04:22:00* Test Item Value Reference Range Interpretation Comments STAIN ACCEPTABILITY (test code = STN ACCEPTABLE) CABOT RINGS (test code = CAB) MORPHOLOGY COMMENT (test code = MOC) PLATELET ESTIMATE (test code = PLTEST) PLATELET MORPHOLOGY (test code = PLTMORPH) [id number] 16:36:00* Test Item Value Reference Range Interpretation Comments GLUBED (test code = GLUBED) 156 mg/dL 74-106 H Performed by certified open developer operator at [facility] [id number] 12:14:00* Test Item Value Reference Range Interpretation Comments GLUBED (test code = GLUBED) 190 mg/dL 74-106 H Performed by certified open developer operator at [facility] CBC W/AUTO [id number] 09:15:00* Test Item Value Reference Range Interpretation [...] = MDIFF) NO, ONLY SCAN NEEDED DIFFERENTIAL [id number] 09:15:00* Test Item Value Reference Range Interpretation Comments STAIN ACCEPTABILITY (test code = STN ACCEPTABLE) STAIN ACCEPTABLE ANISOCYTOSIS (test code = ANISO) 2+ MICROCYTOSIS (test code = MICR) 2+ PLATELET ESTIMATE (test code = PLTEST) DECREASED PLATELET MORPHOLOGY (test code = PLTMORPH) SIZE VARIABLE LARGE PLATELETS SEEN [id number] 08:06:00* Test Item Value Reference Range Interpretation Comments GLUBED (test code = GLUBED) 119 mg/dL 74-106 H Performed by certified open developer operator at [facility] CBC W/AUTO [id number] 07:06:00* Test Item Value Reference Range Interpretation [...] = MDIFF) NO, ONLY SCAN NEEDED DIFFERENTIAL [id number] 07:06:00* Test Item Value Reference Range Interpretation Comments STAIN ACCEPTABILITY (test code = STN ACCEPTABLE) CABOT RINGS (test code = CAB) MORPHOLOGY COMMENT (test code = MOC) PLATELET ESTIMATE (test code = PLTEST) PLATELET MORPHOLOGY (test code = PLTMORPH) CBC W/AUTO [id number] 07:06:00* Test Item Value Reference Range Interpretation [...] = MDIFF) NO, ONLY SCAN NEEDED DIFFERENTIAL [id number] 07:06:00* Test Item Value Reference Range Interpretation Comments STAIN ACCEPTABILITY (test code = STN ACCEPTABLE) CABOT RINGS (test code = CAB) MORPHOLOGY COMMENT (test code = MOC) PLATELET ESTIMATE (test code = PLTEST) PLATELET MORPHOLOGY (test code = PLTMORPH) CBC W/AUTO [id number] 07:06:00* Test Item Value Reference Range Interpretation [...] = MDIFF) NO, ONLY SCAN NEEDED DIFFERENTIAL [id number] 07:06:00* Test Item Value Reference Range Interpretation Comments STAIN ACCEPTABILITY (test code = STN ACCEPTABLE) MORPHOLOGY COMMENT (test code = MOC) PLATELET ESTIMATE (test code = PLTEST) PLATELET MORPHOLOGY (test code = PLTMORPH) CBC W/AUTO [id number] 07:05:00* Test Item Value Reference Range Interpretation [...] = MDIFF) NO, ONLY SCAN NEEDED DIFFERENTIAL [id number] 07:05:00* Test Item Value Reference Range Interpretation Comments STAIN ACCEPTABILITY (test code = STN ACCEPTABLE) CABOT RINGS (test code = CAB) MORPHOLOGY COMMENT (test code = MOC) PLATELET ESTIMATE (test code = PLTEST) PLATELET MORPHOLOGY (test code = PLTMORPH) [id number] 01:58:00* Test Item Value Reference Range Interpretation Comments GLUBED (test code = GLUBED) 157 mg/dL 74-106 H Performed by certified open developer operator at [facility] [id number] 21:33:00* Test Item Value Reference Range Interpretation Comments GLUBED (test code = GLUBED) 148 mg/dL 74-106 H Performed by certified open developer operator at [facility] [id number] 17:05:00* Test Item Value Reference Range Interpretation Comments GLUBED (test code = GLUBED) 143 mg/dL 74-106 H Performed by certified open developer operator at [facility] [id number] 13:18:00* Test Item Value Reference Range Interpretation Comments POTASSIUM (test code = K) 3.0 mmol/L 3.5-5.1 L [id number] 08:37:00* Test Item Value Reference Range Interpretation Comments GLUBED (test code = GLUBED) 111 mg/dL 74-106 H Performed by certified open developer operator at [facility] CBC W/AUTO [id number] 06:23:00* Test Item Value Reference Range Interpretation [...] = MDIFF) NO, ONLY SCAN NEEDED DIFFERENTIAL [id number] 06:23:00* Test Item Value Reference Range Interpretation [...] = PLTMORPH) GIANT PLATELETS SEEN CBC W/AUTO [id number] 05:46:00* Test Item Value Reference Range Interpretation [...] = MDIFF) NO, ONLY SCAN NEEDED DIFFERENTIAL [id number] 05:46:00* Test Item Value Reference Range Interpretation Comments STAIN ACCEPTABILITY (test code = STN ACCEPTABLE) CABOT RINGS (test code = CAB) MORPHOLOGY COMMENT (test code = MOC) PLATELET ESTIMATE (test code = PLTEST) PLATELET MORPHOLOGY (test code = PLTMORPH) CBC W/AUTO [id number] 05:46:00* Test Item Value Reference Range Interpretation [...] = MDIFF) NO, ONLY SCAN NEEDED DIFFERENTIAL [id number] 05:46:00* Test Item Value Reference Range Interpretation Comments STAIN ACCEPTABILITY (test code = STN ACCEPTABLE) CABOT RINGS (test code = CAB) MORPHOLOGY COMMENT (test code = MOC) PLATELET ESTIMATE (test code = PLTEST) PLATELET MORPHOLOGY (test code = PLTMORPH) CBC W/AUTO [id number] 05:46:00* Test Item Value Reference Range Interpretation [...] = MDIFF) NO, ONLY SCAN NEEDED DIFFERENTIAL [id number] 05:46:00* Test Item Value Reference Range Interpretation Comments STAIN ACCEPTABILITY (test code = STN ACCEPTABLE) MORPHOLOGY COMMENT (test code = MOC) PLATELET ESTIMATE (test code = PLTEST) PLATELET MORPHOLOGY (test code = PLTMORPH) CBC W/AUTO [id number] 05:46:00* Test Item Value Reference Range Interpretation [...] = MDIFF) NO, ONLY SCAN NEEDED DIFFERENTIAL [id number] 05:46:00* Test Item Value Reference Range Interpretation Comments STAIN ACCEPTABILITY (test code = STN ACCEPTABLE) CABOT RINGS (test code = CAB) MORPHOLOGY COMMENT (test code = MOC) PLATELET ESTIMATE (test code = PLTEST) PLATELET MORPHOLOGY (test code = PLTMORPH) [id number] 20:41:00* Test Item Value Reference Range Interpretation Comments GLUBED (test code = GLUBED) 150 mg/dL 74-106 H Performed by certified open developer operator at [facility] [id number] 16:34:00* Test Item Value Reference Range Interpretation Comments GLUBED (test code = GLUBED) 159 mg/dL 74-106 H Performed by certified open developer operator at [facility] [id number] 12:42:00* Test Item Value Reference Range Interpretation Comments GLUBED (test code = GLUBED) 166 mg/dL 74-106 H Performed by certified open developer operator at [facility] [id number] 08:17:00* Test Item Value Reference Range Interpretation Comments GLUBED (test code = GLUBED) 147 mg/dL 74-106 H Performed by certified open developer operator at [facility] AB HEPATITIS B [id number] 08:10:00* Test Item Value Reference Range Interpretation Comments AB HEPATITIS B SURFACE (test code = HBSAB) Non Reactive () Non Reactive: Inconsistent with immunity, less than 10 mIU/mL Reactive: Consistent with immunity, greater than 9.9 mIU/mLPerformed At: [facility] [address] [place], [place] [id number] Kade Arteaga MD Ph:[phone] CBC W/AUTO [id number] 05:27:00* Test Item Value Reference Range Interpretation [...] = MDIFF) NO, ONLY SCAN NEEDED DIFFERENTIAL [id number] 05:27:00* Test Item Value Reference Range Interpretation Comments STAIN ACCEPTABILITY (test code = STN ACCEPTABLE) STAIN ACCEPTABLE ANISOCYTOSIS (test code = ANISO) 1+ MORPHOLOGY COMMENT (test code = MOC) TEST NOT PERFORMED PLATELET ESTIMATE (test code = PLTEST) DECREASED PLATELET MORPHOLOGY (test code = PLTMORPH) NORMAL CBC W/AUTO [id number] 05:02:00* Test Item Value Reference Range Interpretation [...] = MDIFF) NO, ONLY SCAN NEEDED DIFFERENTIAL [id number] 05:02:00* Test Item Value Reference Range Interpretation Comments STAIN ACCEPTABILITY (test code = STN ACCEPTABLE) CABOT RINGS (test code = CAB) MORPHOLOGY COMMENT (test code = MOC) PLATELET ESTIMATE (test code = PLTEST) PLATELET MORPHOLOGY (test code = PLTMORPH) CBC W/AUTO [id number] 05:02:00* Test Item Value Reference Range Interpretation [...] = MDIFF) NO, ONLY SCAN NEEDED DIFFERENTIAL [id number] 05:02:00* Test Item Value Reference Range Interpretation Comments STAIN ACCEPTABILITY (test code = STN ACCEPTABLE) MORPHOLOGY COMMENT (test code = MOC) PLATELET ESTIMATE (test code = PLTEST) PLATELET MORPHOLOGY (test code = PLTMORPH) CBC W/AUTO [id number] 05:02:00* Test Item Value Reference Range Interpretation [...] = MDIFF) NO, ONLY SCAN NEEDED DIFFERENTIAL [id number] 05:02:00* Test Item Value Reference Range Interpretation Comments STAIN ACCEPTABILITY (test code = STN ACCEPTABLE) MORPHOLOGY COMMENT (test code = MOC) PLATELET ESTIMATE (test code = PLTEST) PLATELET MORPHOLOGY (test code = PLTMORPH) CBC W/AUTO [id number] 05:02:00* Test Item Value Reference Range Interpretation [...] = MDIFF) NO, ONLY SCAN NEEDED DIFFERENTIAL [id number] 05:02:00* Test Item Value Reference Range Interpretation Comments STAIN ACCEPTABILITY (test code = STN ACCEPTABLE) CABOT RINGS (test code = CAB) MORPHOLOGY COMMENT (test code = MOC) PLATELET ESTIMATE (test code = PLTEST) PLATELET MORPHOLOGY (test code = PLTMORPH) [id number] 21:28:00* Test Item Value Reference Range Interpretation Comments D-DIMER (test code = DDIMER) 62125.00 ng/mLFEU 0-500 HH Results called to [id number] by VJose ManuelLAB.KP1 09/11/19 2123Critical results verified [...] pneumonia, severe skin infections -Liver cirrhosis - [id number] 20:43:00* Test Item Value Reference Range Interpretation Comments GLUBED (test code = GLUBED) 191 mg/dL 74-106 H Performed by certified open developer operator at [facility] CBC W/AUTO [id number] 18:11:00* Test Item Value Reference Range Interpretation [...] 38 K/mm3 150-450 LL Results called to [id number] by [employer].KP1 09/11/19 1726Critical results verified and read back [...] = MDIFF) NO, ONLY SCAN NEEDED DIFFERENTIAL [id number] 18:11:00* Test Item Value Reference Range Interpretation Comments STAIN ACCEPTABILITY (test code = STN ACCEPTABLE) STAIN ACCEPTABLE ANISOCYTOSIS (test code = ANISO) 1+ PLATELET ESTIMATE (test code = PLTEST) DECREASED PLATELET MORPHOLOGY (test code = PLTMORPH) SIZE VARIABLE CBC W/AUTO [id number] 17:28:00* Test Item Value Reference Range Interpretation [...] 38 K/mm3 150-450 LL Results called to [id number] by [employer]KP1 09/11/19 1726Critical results verified and read back [...] = MDIFF) NO, ONLY SCAN NEEDED DIFFERENTIAL [id number] 17:28:00* Test Item Value Reference Range Interpretation Comments STAIN ACCEPTABILITY (test code = STN ACCEPTABLE) CABOT RINGS (test code = CAB) MORPHOLOGY COMMENT (test code = MOC) PLATELET ESTIMATE (test code = PLTEST) PLATELET MORPHOLOGY (test code = PLTMORPH) CBC W/AUTO [id number] 17:28:00* Test Item Value Reference Range Interpretation [...] 38 K/mm3 150-450 LL Results called to [id number] by VAxi[employer] Mobile Assets CorporationLAB.KP1 09/11/19 1726Critical results verified and read back [...] = MDIFF) NO, ONLY SCAN NEEDED DIFFERENTIAL [id number] 17:28:00* Test Item Value Reference Range Interpretation Comments STAIN ACCEPTABILITY (test code = STN ACCEPTABLE) MORPHOLOGY COMMENT (test code = MOC) PLATELET ESTIMATE (test code = PLTEST) PLATELET MORPHOLOGY (test code = PLTMORPH) CBC W/AUTO [id number] 17:28:00* Test Item Value Reference Range Interpretation [...] 38 K/mm3 150-450 LL Results called to [id number] by V.LAB.KP1 09/11/19 1726Critical results verified and [...] = MDIFF) NO, ONLY SCAN NEEDED DIFFERENTIAL [id number] 17:28:00* Test Item Value Reference Range Interpretation Comments STAIN ACCEPTABILITY (test code = STN ACCEPTABLE) MORPHOLOGY COMMENT (test code = MOC) PLATELET ESTIMATE (test code = PLTEST) PLATELET MORPHOLOGY (test code = PLTMORPH) CBC W/AUTO [id number] 17:28:00* Test Item Value Reference Range Interpretation [...] 38 K/mm3 150-450 LL Results called to [id number] by [employer].KP1 09/11/19 1726Critical results verified and read back [...] = MDIFF) NO, ONLY SCAN NEEDED DIFFERENTIAL [id number] 17:28:00* Test Item Value Reference Range Interpretation Comments STAIN ACCEPTABILITY (test code = STN ACCEPTABLE) CABOT RINGS (test code = CAB) MORPHOLOGY COMMENT (test code = MOC) PLATELET ESTIMATE (test code = PLTEST) PLATELET MORPHOLOGY (test code = PLTMORPH) [id number] 16:35:00* Test Item Value Reference Range Interpretation Comments GLUBED (test code = GLUBED) 190 mg/dL 74-106 H Performed by certified open developer operator at [facility] CBC W/AUTO [id number] 11:43:00* Test Item Value Reference Range Interpretation Comments WHITE BLOOD CELL (test code = WBC) 15.2 K/mm3 4.5-12.5 H RED BLOOD CELL (test code = RBC) 1.90 mill/mm3 3.7-5.2 L HEMOGLOBIN (test code = HGB) 5.8 gram/dL 11.5-15.5 L HEMATOCRIT (test code = HCT) 18.4 % 36.0-46.0 LL Results called to [id number] by [employer]ki workQ 09/11/19 1117Critical results verified and read back [...] 46 K/mm3 150-450 LL Results called to [id number] by WellDocLAB.ki workQ 09/11/19 1118Critical results verified and read back [...] = MDIFF) NO, ONLY SCAN NEEDED DIFFERENTIAL [id number] 11:43:00* Test Item Value Reference Range Interpretation Comments STAIN ACCEPTABILITY (test code = STN ACCEPTABLE) STAIN ACCEPTABLE POLYCHROMASIA (test code = POLC) 3+ POIKILOCYTOSIS (test code = POIK) 1+ ANISOCYTOSIS (test code = ANISO) 1+ PLATELET ESTIMATE (test code = PLTEST) DECREASED PLATELET MORPHOLOGY (test code = PLTMORPH) NORMAL CBC W/AUTO [id number] 11:18:00* Test Item Value Reference Range Interpretation Comments WHITE BLOOD CELL (test code = WBC) 15.2 K/mm3 4.5-12.5 H RED BLOOD CELL (test code = RBC) 1.90 mill/mm3 3.7-5.2 L HEMOGLOBIN (test code = HGB) 5.8 gram/dL 11.5-15.5 L HEMATOCRIT (test code = HCT) 18.4 % 36.0-46.0 LL Results called to [id number] by [employer]JQ 09/11/19 1117Critical results verified and read back [...] 46 K/mm3 150-450 LL Results called to [id number] by Well[employer].JQ 09/11/19 1118Critical results verified and read back [...] = MDIFF) NO, ONLY SCAN NEEDED DIFFERENTIAL [id number] 11:18:00* Test Item Value Reference Range Interpretation Comments STAIN ACCEPTABILITY (test code = STN ACCEPTABLE) CABOT RINGS (test code = CAB) MORPHOLOGY COMMENT (test code = MOC) PLATELET ESTIMATE (test code = PLTEST) PLATELET MORPHOLOGY (test code = PLTMORPH) CBC W/AUTO [id number] 11:18:00* Test Item Value Reference Range Interpretation Comments WHITE BLOOD CELL (test code = WBC) 15.2 K/mm3 4.5-12.5 H RED BLOOD CELL (test code = RBC) 1.90 mill/mm3 3.7-5.2 L HEMOGLOBIN (test code = HGB) 5.8 gram/dL 11.5-15.5 L HEMATOCRIT (test code = HCT) 18.4 % 36.0-46.0 LL Results called to [id number] by WellDocLAB.[facility] 09/11/19 1117Critical results verified and read back [...] 46 K/mm3 150-450 LL Results called to [id number] by [employer].LAB.JQ 09/11/19 1118Critical results verified and read back [...] = MDIFF) NO, ONLY SCAN NEEDED DIFFERENTIAL [id number] 11:18:00* Test Item Value Reference Range Interpretation Comments STAIN ACCEPTABILITY (test code = STN ACCEPTABLE) CABOT RINGS (test code = CAB) MORPHOLOGY COMMENT (test code = MOC) PLATELET ESTIMATE (test code = PLTEST) PLATELET MORPHOLOGY (test code = PLTMORPH) CBC W/AUTO [id number] 11:18:00* Test Item Value Reference Range Interpretation Comments WHITE BLOOD CELL (test code = WBC) 15.2 K/mm3 4.5-12.5 H RED BLOOD CELL (test code = RBC) 1.90 mill/mm3 3.7-5.2 L HEMOGLOBIN (test code = HGB) 5.8 gram/dL 11.5-15.5 L HEMATOCRIT (test code = HCT) 18.4 % 36.0-46.0 LL Results called to [id number] by Well[employer].JQ 09/11/19 1117Critical results verified and read back [...] 46 K/mm3 150-450 LL Results called to [id number] by [employer].JQ 09/11/19 1118Critical results verified and read back [...] = MDIFF) NO, ONLY SCAN NEEDED DIFFERENTIAL [id number] 11:18:00* Test Item Value Reference Range Interpretation Comments STAIN ACCEPTABILITY (test code = STN ACCEPTABLE) MORPHOLOGY COMMENT (test code = MOC) PLATELET ESTIMATE (test code = PLTEST) PLATELET MORPHOLOGY (test code = PLTMORPH) CBC W/AUTO [id number] 11:18:00* Test Item Value Reference Range Interpretation Comments WHITE BLOOD CELL (test code = WBC) 15.2 K/mm3 4.5-12.5 H RED BLOOD CELL (test code = RBC) 1.90 mill/mm3 3.7-5.2 L HEMOGLOBIN (test code = HGB) 5.8 gram/dL 11.5-15.5 L HEMATOCRIT (test code = HCT) 18.4 % 36.0-46.0 LL Results called to [id number] by [employer].LAB.ki workQ 09/11/19 1117Critical results verified and read back [...] 46 K/mm3 150-450 LL Results called to [id number] by [employer].LAB.[employer] [facility] 09/11/19 1118Critical results verified and read back [...] = MDIFF) NO, ONLY SCAN NEEDED DIFFERENTIAL [id number] 11:18:00* Test Item Value Reference Range Interpretation Comments STAIN ACCEPTABILITY (test code = STN ACCEPTABLE) CABOT RINGS (test code = CAB) MORPHOLOGY COMMENT (test code = MOC) PLATELET ESTIMATE (test code = PLTEST) PLATELET MORPHOLOGY (test code = PLTMORPH) BASIC METABOLIC [id number] 09:46:00* Test Item Value Reference Range Interpretation [...] 8.3 mg/dL 8.5-10.1 L AG HEPAT B [id number] 09:42:00* Test Item Value Reference Range Interpretation Comments AG HEPAT B SURF (test code = HBSAG) Nonreactive Index Nonreactive BASIC METABOLIC [id number] 09:40:00* Test Item Value Reference Range Interpretation [...] CALCIUM (test code = CA) mg/dL 8.5-10.1 [id number] 08:52:00* Test Item Value Reference Range Interpretation Comments GLUBED (test code = GLUBED) 151 mg/dL 74-106 H Performed by certified open developer operator at [facility] [id number] 16:30:00* Test Item Value Reference Range Interpretation Comments GLUBED (test code = GLUBED) 220 mg/dL 74-106 H Performed by certified open developer operator at [facility] [id number] 11:46:00* Test Item Value Reference Range Interpretation Comments GLUBED (test code = GLUBED) 245 mg/dL 74-106 H Performed by certified open developer operator at [facility] [id number] 08:17:00* Test Item Value Reference Range Interpretation Comments GLUBED (test code = GLUBED) 251 mg/dL 74-106 H Performed by certified open developer operator at [facility] [id number] 05:56:00* Test Item Value Reference Range Interpretation Comments GLUEMERSON (test code = GLUBED) 249 mg/dL 74-106 H Performed by certified open developer operator at [facility] - CT LOWER EXTRM W/O C [id number] 01:54:00 Name: JUAN MANRIQUEZ [facility] : 1945 Age/S: 74 / F [address] [facility] Unit #: [id number] Loc: [place] [address] Phys: Marilou Wasserman DO Acct: [id number] Dis Date: Status: ADM IN PHONE #: [phone] Exam Date: 09/09/2019 234 FAX #: [phone] Reason: fracture Report Has Been Amended EXAMS: CPT CODE: [id number] [place] LOWER [place]TRM W/[place] [address] Addendum - 09/10/2019 SIGNED 09/10/2019 ADDENDUM: [id number] CT/CTLEWOCLT ADDENDUM: 3-D reconstructed images were later [...] 1 Signed Report (CONTINUED) Name: JUAN MANRIQUEZ [facility] : 1945 Age/S: 74 / F [address] Unit #: [id number] Loc: [place] [address] Phys: Marilou Wasserman DO Acct: [id number] Dis Date: Status: ADM IN PHONE #: [phone] Exam Date: 09/09/2019 0349 FAX #: [phone] Reason: fracture Report Has Been Amended EXAMS: CPT CODE: [id number] [place] LOWER EXTRM W/[place] [address] <Continued> IMPRESSION: Comminuted intra-articular fracture of the [...] 2 Signed Report (CONTINUED) Name: JUAN MANRIQUEZ [facility] : 1945 Age/S: 74 / F [address] Unit #: [id number] Loc: [place] [address] Phys: Marilou Wasserman DO Acct: [id number] Dis Date: Status: ADM IN PHONE #: [phone] Exam Date: 09/09/2019 2345 FAX #: [phone] Reason: fracture Report Has Been Amended EXAMS: CPT CODE: [id number] [place]TR[place] [address] < Continued> SOFT TISSUE FINDINGS: There is [...] 3 Signed Report - CTA LOW EXTREMITY [id number] 01:54:00 Name: JUAN MANRIQUEZ [facility] : 1945 Age/S: 74 / F [place] Unit #: [id number] Loc: [place] [address] Phys: Jenni Wasserman DO Acct: [id number] Di s Date: Status: ADM IN PHONE #: Exam Date: 09/09/2019 2349 FAX #: [phone] Reason: fall, fracture Report Has Been Amended EXAMS: CPT CODE: [id number] [place] [address] Addendum - 09/10/2019 SIGNED 09/10 ADDENDUM: [id number] CT/CTALOWEXLT ADD ENDUM: 3-D reconstructed images were [...] 1 Signed Report (CONTINUED) Name: JUAN MANRIQUEZ [facility] : 1945 Age/S: 74 / F [address] [facility] Unit #: [id number] [place] [address] Phys: LuxMarilou DO Acct: [id number] Dis Date: Status: ADM IN PHONE #: [phone] Exam Date: 09/09/2019 2343 FAX #: [phone] Reason: fall, fracture Report Has Been Amended EXAMS: CPT CODE: [id number] [address] <Continued> IMPRESSION: Comminuted intra-articular fracture of the [...] 2 Signed Report (CONTINUED) Name: JUAN MANRIQUEZ [facility] : 1945 Age/S: 74 / F [address] [facility] Unit #: [id number] Loc: [place] [address] Phys: Marilou Wasserman DO Acct: [id number] Dis Date: Status: ADM IN PHONE #: [phone] Exam Date: 09/09/2019 7857 FAX #: [phone] Reason: fall, fracture Report Has Been Amended EXAMS: CPT C ODE: [id number] [place] [address] <Continued> SOFT TISSUE FINDINGS: There is a [...] Report - CT LOWER EXTRM W/O C [id number] 00:19:00 Name: JUAN MANRIQUEZ [facility] : 1945 Age/S: 74 / F [address] [facility] Unit #: [id number] Loc: [place] [address] Phys: Jenni Wasserman DO Acct: [id number] Di s Date: Status: REG ER PHONE #: [phone] Exam Date: 09/09/2019 2348 FAX #: Reason: fracture EXAMS: CPT CODE: [id number] [place] LOWER EXTRM W/[place] [address] AFTER HOURS SERVICE ON: 12:[address] [...] 1 Signed Report (CONTINUED) Name: JUAN MANRIQUEZ [facility] : 1945 Age/S: 74 / F [address] [facility] Unit #: [id number] Loc: [place] [address] Phys: LuxMarilou DO Acct: [id number] Dis Date: Status: REG ER PHONE #: [phone] Exam Date: 09/09/2019 2345 FAX #: [phone] Reason: fracture EXAMS: CPT CODE: [id number] [place] LOWER EXTRM W/[place] [address] < Continued> History: fall, fracture Technique: Source [...] 2 Signed Report (CONTINUED) Name: JUAN RAMIREZ [facility] : [birth year] Age/S: 74 / F [address] [facility]: [id number] Loc: [place] [address] Phys: Marilou Wasserman DO Acct: [id number] Dis Date: Status: REG ER PHONE #: [phone] Exam Date: 09/09/2019 2348 FAX #: [phone] Reason: fracture EXAMS: CPT CODE: [id number] [place] L[place] EXTRM W/[place] [address] <Continued> at 0019 Reported and signed by: Lloyd Fuentes M.D. CC: Leona Colindres Lauren DO Technologist:Hernan Powell, RT(R)(CT); Min CTDI: DLP: Trnscb Date/Time: 09/10/2019 (001) [email or web address] Orig Print D/T: S: 09/10/2019 (0022) PAGE 3 Signed Report - CTA LOW EXTREMITY [id number] 00:19:00 Name: JUAN MANRIQUEZ [facility] : 1945 Age/S: 74 / F [address] Unit #: [id number] Loc: [place] [address] Phys: Marilou Wasserman DO Acct: [id number] Dis Date: Status: REG ER PHONE #: [phone] Exam Date: 09/09/20192344 FAX #: [phone] Reason: fall, fracture EXAMS: CPT CODE: [id number] [address] AFTER HOURS SERVICE ON: 09/10/2019 12:08 AM [...] 1 Signed Report (CONTINUED) Name: JUAN MANRIQUEZ [facility] : 1945 Age/S: 74 / F [address] [facility] Unit #: [id number] Loc: [place] [address] Phys: WassermanMikaMarilou DO Acct: [id number] Dis Date: Status: REG ER PHONE #: [phone] Exam Date: 09/09/20192344 FAX #: [phone] Reason: fall, fracture EXAMS: CPT CODE: [id number] [place] [address] < Continued> History: fall, fracture Technique: Source [...] 2 Signed Report (CONTINUED) Name: JUAN RAMIREZ [facility] : [birth year] Age/S: 74 / F [address] [facility] Unit #: [id number] Loc: [place] [address] Phys: Marilou Wasserman DO Acct: [id number] Dis Date: Status: REG ER PHONE #: [phone] Exam Date: 09/09/2019 9381 FAX #: [phone] Reason: fall, fracture EXAMS: CPT CODE: [id number] [place] [address] <Continued> at 0019 Reported and signed by: Lloyd Fuentes M.D. CC: GlennLeona Lauren DO Technologist:Hernan Powell, RT(R)(CT); Min CTDI: DLP: Trnscb Date/Time: 09/10/2019 (0019) [email or web address] Orig Print D/T: S: 09/10/2019 (0022) PAGE 3 Signed Report - CT C-SPINE W/O [id number] 00:06:00 Name: JUAN MANRIQUEZ [facility] : 1945 Age/S: 74 / F [address] [facility] Unit #: [id number] Loc: [place] [address] Phys: Marilou Wasserman DO Acct: [id number] Dis Date: Status: REG ER PHONE #: [phone] Exam Date: 09/09/2019 234 FAX #: [phone] Reason: Neck Pain EXAMS: CPT CODE: [id number] CT C-SPINE W/O CONTRAST 24064 AFTER HOURS SERVICE ON: 09/10/2019 12:01 AM [...] 1 Signed Report - CT HEAD/BRAIN W/O [id number] 23:51:00 Name: JUAN MANRIQUEZ [facility] : 1945 Age/S: 74 / F [place] Unit #: [id number] Loc: [place] [address] Phys: Marilou Wasserman DO Acct: [id number] Dis Date: Status: REG ER PHONE #: [phone] Exam Date: 09/09/2019 2344 FAX #: [phone] Reason: HEADACHE EXAMS: CPT CODE: [id number] CT HEAD/BRAIN W/O CONT 76179 Examination: Noncontrast head CT Indication: Headache Comparison: [...] 1 Signed Report (CONTINUED) Name: JUAN MANRIQUEZ [facility] : 1945 Age/S: 74 / F [place] Unit #: [id number] Loc: [place] [address] Phys: Marilou Wasserman DO Acct: [id number] Dis Date: Status: REG ER PHONE #: [phone] Exam Date: 09/09/2019 2344 FAX #: [phone] Reason: HEADACHE EXAMS: CPT CODE: [id number] CT HEAD/BRAIN W/O CONT 07069 <Continued> at 2351 Reported and signed by: Syl Ang M.D. CC: Leona Colindres; Marilou Wasserman DO Technologist:Brady Xiao RT(R) CTDI: DLP: Trnscb Date/Time: 09/09/2019 (2350) [email or web address] Orig Print D/T: S: 09/09/2019 (6978) PAGE 2 Signed Report - XR PELVIS /2 [id number] 23:21:00 FAX: Leona Ziegler MD [phone] [place]: St: REG FAX: Marilou Wasserman DO Name: JUAN MANRIQUEZ [facility] : 1945 Age/S: 74/F [address] [facility] Unit #: [id number] Loc: [place] [address] Phys: Marilou Wasserman DO Acct: [id number] Dis Date: Status: REG ER PHONE #: [phone] Exam Date: 09/09/20192229 FAX #: [phone] Reason: PELVIC PAIN EXAMS: CPT CODE: [id number] XR PELVIS /2 VIEWS 93989 AFTER HOURS SERVICE ON: 09/09/2019 11:20 PM [...] ANGELA SALGADO RT(R); ... Trnscrd Date/Time/By: 09/09/2019 (4 494) : By: [email or web address] Orig Print D/T: S: 09/09/2019 (7932) PAGE 1 Signed Report - XR CHEST 1 [id number] 23:15:00 FAX: Leona Ziegler MD [phone] [place]: St: [facility] FAX: Marilou Wasserman DO Name: JUAN MANRIQUEZ [facility] : 1945 Age/S: 74/F [address] [facility] Unit #: [id number] Loc: [place] [address] Phys: Marilou Wasserman DO Acct: [id number] Dis Date: Status: REG ER PHONE #: [phone] Exam Date: 09/09/20192229 FAX #: [phone] Reason: CHEST PAIN EXAMS: CPT CODE: [id number] XR CHEST 1 V 22793 AFTER HOURS SERVICE ON: 09/09/2019 11:15 PM [...] SALGADO RT(R); ... Trnscrd Date/Time/ By: 09/09/2019 (3562) : By: [email or web address] Orig Print D/T: S: 09/09/2019 (5 170) PAGE 1 Signed Report - XR FEMUR MIN 2 VWS [id number] 23:14:00 FAX: Leona Ziegler MD [phone] [place]: St: REG FAX: Marilou Wasserman DO Name: JUAN MANRIQUEZ [facility] : 1945 Age/S: 74/F [address] [facility] Unit #: [id number] Loc: [place] [address] Phys: Marilou Wasserman DO Acct: [id number] Dis Date: Status: REG ER PHONE #: [phone] Exam Date: 09/09/20192229 FAX #: [phone] Reason: THIGH PAIN EXAMS: CPT CODE: [id number] XR FEMUR MIN [address] [place] [address] AFTER HOURS SERVICE ON: 09/09/2019 11:13 PM Left Femur, 4 Views Location Code M12 History: THIGH PAIN Findings: There is a comminuted mildly impacted fracture of the distal femur with extension to the intercondylar notch. There is approximately 11 mm in maximum cortical displacement. I mpression: Comminuted mildly displaced impacted distal femur f racture. at 7407 Reported and signed by: Lloyd Fuentes M.D. CC: Leona Bowen Lauren DO Technologist: Timmy Merchant RT(R); ANGELA SALGADO RT(R); ..Jsoe Manuel Trnscrd Date/Time/By: 09/09/2019 () : By: [email or web address] Orig Print D/T: S: 09/09/2019 (5313) PAGE 1 Signed Report - XR KNEE 1 OR 2 V [id number] 23:13:00 FAX: Leona Ziegler MD [phone] [place]: St: REG FAX: Marilou Wasserman DO Name: JUAN MANRIQUEZ [facility] : 1945 Age/S: 74/F [address] [facility] Unit #: [id number] Loc: [place] [address] Phys: Mrailou Wasserman DO Acct: [id number] Dis Date: Status: REG ER PHONE #: [phone] Exam Date: 09/09/20192230 FAX #: [phone] Reason: KNEE PAIN EXAMS: CPT CODE: [id number] XR KNEE 1 [place] 2 [place] [address] AFTER HOURS SERVICE ON: 09/09/2019 11:12 PM Left Knee, 2 Views Location Code M12 History: KNEE PAIN Findings: There is a comminuted fracture of the distal femur with extension into the intercondylar notch. There is osteopenia. There is no tibial plateau fracture. There is a large suprapatellar hemar throsis. Impression: Comminuted articular-exte nding fracture of the distal femur Large suprapatellar hemarth rosis. at 6663 Reported and signed by: Lloyd Fuentes M.D. CC: Leona Colindres; Marilou Wasserman DO Technologist: Timmy Merchant RT( R); ANGELA SALGADO RT(R); ... Trnscrd Date/Time/By: 09/09/2019 (2312) : By: [email or web address] Orig Print D/T: S: 09/09/2019 (4587) PAGE 1 Signed Report - XR TIBIA/FIBULA 2 V [id number] 23:12:00 FAX: Leona Ziegler MD [phone] [place]: St: REG FAX: Marilou Wasserman DO Name: JUAN MANRIQUEZ [facility] : 1945 Age/S: 74/F [address] [facility] Unit #: [id number] Loc: [place] [address] Phys: Marilou Wasserman DO Acct: [id number] Dis Date: Status: REG ER PHONE #: [phone] Exam Date: 09/09/20192229 FAX #: [phone] Reason: LEG PAIN EXAMS: CPT CODE: [id number] XR TIBIA/FIBULA 2 [place] [address] AFTER HOURS SERVICE ON: 09/09/2019 11:10 PM [...] ANGELA SALGADO RT(R); ... Trnscrd Date/Time/By: 09/09/2019 (5630) : By: [email or web address] Orig Print D/T: S: 09/09/2019 (0390) PAGE 1 Signed Report - XR ANKLE 2 VIEWS LT 2019-09-09 23:09:00 FAX: Leona Ziegler MD [phone] [place]: St: REG FAX: Marilou Wasserman DO Name: JUAN MANRIQUEZ [facility] : 1945 Age/S: 74/F [address] [facility] Unit #: [id number] Loc: [place] [address] Phys: Marilou Wasserman DO Acct: [id number] Dis Date: Status: REG ER PHONE #: [phone] Exam Date: 09/09/20190 FAX #: [phone] Reason: ANKLE PAIN EXAMS: CPT CODE: [id number] XR ANKLE [address] [place] [address] AFTER HOURS SERVICE ON: 09/09/2019 11:09 PM Left Ankle, 2 Views Location Code M12 History: ANKLE PAIN Findings: There is osteopenia. There is normal anatomic alignment. No fracture, dislocation or avulsion fragments are seen. Ankle mortise, tibial plafond and talar dome are intact. Impression: Osteopenia. No fracture. at 3900 Reported and signed by: Lloyd Fuentes M.D. CC: Leona Colindres; Marilou Wasserman DO Technologist: Timmy Merchant RT(R); ANGELA SALGADO RT(R); ... Trnscrd Date/Time/By: 09/09/2019 (7829) : By: [email or web address] Orig Print D/T: S: 09/09/2019 (2713) PAGE 1 Signed Report BASIC METABOLIC [id number] 22:52:00* Test Item Value Reference Range Interpretation [...] CA) 7.8 mg/dL 8.5-10.1 L HEPATIC FUNCTION [id number] 22:52:00* Test Item Value Reference Range Interpretation [...] reference range due to change in reagent. [id number] 22:52:00* Test Item Value Reference Range Interpretation Comments LIPASE (test code = LIP) 277 U/L 73.0-393.0 N BASIC METABOLIC [id number] 22:44:00* Test Item Value Reference Range Interpretation [...] code = CA) mg/dL 8.5-10.1 HEPATIC FUNCTION [id number] 22:44:00* Test Item Value Reference Range Interpretation [...] TOTAL (test code = ALKP) IUnit/L 45-117 [id number] 22:44:00* Test Item Value Reference Range Interpretation Comments LIPASE (test code = LIP) U/L 73.0-393.0 PROTHROMBIN [id number] 22:43:00* Test Item Value Reference Range Interpretation [...] (2.5-3.5) IS PATIENT ON ANTICOAGULANTS? NTHROMBOPLASTIN TIME [id number] 22:43:00* Test Item Value Reference Range Interpretation Comments THROMBOPLASTIN TIME PARTIAL (test code = PTT) 32.9 seconds 25.0-36. 5 N IS PATIENT ON ANTICOAGULANTS? NCBC W/O [id number] 22:39:00* Test Item Value Reference Range Interpretation [...] 32 K/mm3 150-450 LL Results called to [id number] by [email or web address] 09/09/19 2239Critical results verified and read back by Nurse? Y MEAN PLATELET VOLUME (test code = MPV) TEST NOT PERFORMED fL 6.7-[address] THORACIC SPINE [id number] 12:34:00 [place] [address] Patient Name: JUAN MANRIQUEZ MR #: [id number] : 1945 Age/Sex: 74/F Req #: [id number] Adm Physician: Ordered by: LEONA COLINDRES MD Report #: [id number] Location: CT Room/Bed: Procedure: [id number] CT/CT THORACIC SPINE WO Exam Date: 05/15/19 Exam Time: 11 45 REPORT STATUS: Signed CT THOR ACIC SPINE WO HISTORY: Thoracic spine pain COMPARISON: Chest radiogra [facility] 11/18/2018 TECHNIQUE: Axial CT images of the [...] on 1244 COPY TO: LEONA COLINDRES MD [id number] 12:43:00* Test Item Value Reference Range Interpretation Comments GLUBED (test code = GLUBED) 141 mg/dL 74-106 H Performed by certified open developer operator at [facility] [id number] 11:03:00* Test Item Value Reference Range Interpretation Comments TROPONIN-I (test code = TROPI) <0.015 ng/mL 0-0.045 N COMMENTS TO ANATOMY PROFESSOR: COLLECT 3 HOURS AFTER PREVIOUS [id number] 07:14:00* Test Item Value Reference Range Interpretation Comments GLUBED (test code = GLUBED) 117 mg/dL 74-106 H Performed by certified open developer operator at [facility] [id number] 02:13:00* Test Item Value Reference Range Interpretation Comments TROPONIN-I (test code = TROPI) <0.015 ng/mL 0-0.045 N COMMENTS TO ANATOMY PROFESSOR: COLLECT 3 HOURS AFTER PREVIOUS SAMPLEBASIC METABOLIC [id number] 21:52:00* Test Item Value Reference Range Interpretation [...] CA) 8.9 mg/dL 8.5-10.1 N HEPATIC FUNCTION [id number] 21:52:00* Test Item Value Reference Range Interpretation [...] reference range due to change in reagent. [id number] 21:52:00* Test Item Value Reference Range Interpretation Comments LIPASE (test code = LIP) 156 U/L 73.0-393.0 N [id number] 21:52:00* Test Item Value Reference Range Interpretation Comments MAGNESIUM (test code = MAG) 2.2 mg/dL 1.8-2.4 N [id number] 21:52:00* Test Item Value Reference Range Interpretation Comments TROPONIN-I (test code = TROPI) <0.015 ng/mL 0-0.045 N BASIC METABOLIC [id number] 21:50:00* Test Item Value Reference Range Interpretation [...] code = CA) mg/dL 8.5-10.1 HEPATIC FUNCTION [id number] 21:50:00* Test Item Value Reference Range Interpretation [...] TOTAL (test code = ALKP) IUnit/L 45-117 [id number] 21:50:00* Test Item Value Reference Range Interpretation Comments LIPASE (test code = LIP) U/L 73.0-393.0 [id number] 21:50:00* Test Item Value Reference Range Interpretation Comments MAGNESIUM (test code = MAG) mg/dL 1.8-2.4 [id number] 21:50:00* Test Item Value Reference Range Interpretation Comments TROPONIN-I (test code = TROPI) ng/mL 0-0.045 B-TYPE NATRIURETIC [id number] 21:36:00* Test Item Value Reference Range Interpretation Comments B-TYPE NATRIURETIC PEPTIDE (test code = BNP) 530.07 pgram/mL 0-100 H PROTHROMBIN [id number] 21:08:00* Test Item Value Reference Range Interpretation [...] (2.5-3.5) IS PATIENT ON ANTICOAGULANTS? NTHROMBOPLASTIN TIME [id number] 21:08:00* Test Item Value Reference Range Interpretation Comments THROMBOPLASTIN TIME PARTIAL (test code = PTT) 31.3 seconds 25.0-36. 5 N IS PATIENT ON ANTICOAGULANTS? NCBC W/O [id number] 21:07:00* Test Item Value Reference Range Interpretation [...] 40 K/mm3 150-450 LL Results called to [id number] by [email or web address] 11/18/18 2106Critical results verified and read back by Nurse? Y MEAN PLATELET VOLUME (test code = MPV) TEST NOT PERFORMED fL 6.7-11 .0 - XR CHEST 1 [id number] 20:13:00 FAX: Leona Ziegler MD [phone] [place]: St: [facility] FAX: Naz Cm MD [phone] Name: JUAN MANRIQUEZ [facility] : 1945 Age/S: 73/F [address] Unit #: [id number] Loc: [place] [address] Phys: Naz Cm MD Acct: [id number] Dis Date: Status: REG ER PHONE #: [phone] Exam Date: 11/18/20182007 FAX #: [phone] Reason: CHEST PAIN EXAMS: CPT CODE: [id number] XR CHEST 1 V 22806 REASON FOR EXAM: CHEST PAIN EXAM ORDER [...] (2015) PAGE 1 Signed Report CHEST 2 [id number] 14:29:00 [place] [address] Patient Name: JUAN MANRIQUEZ MR #: [id number] : 1945 Age/Sex: 73/F Req #: [id number] Adm Physician: Ordered by: BOOKER WALDEN MD Report #: [id number] Location: OR Room/Bed: Procedure: [id number] DX/CHES T 2 VIEWS Exam Date: 11/18/18 [...] 1430 COPY TO: FARRAR MD SINUSES (PARANASAL)MIN [id number] 17:38:00 [place] [address] Patient Name: JUAN MANRIQUEZ MR #: [id number] : 1945 Age/Sex: 73/F Req #: [id number] Adm Physician: Ordered by: LEONA COLINDRES MD Report #: [id number] Location: [facility] Room/Bed: Procedure: [id number] DX/SI YAELS (PARANASAL)MIN 3VIEWS Exam Date: 08/01/18 [...] COPY TO: LEONA COLINDRES MD CT CHEST [id number] 09:47:00 [place] [address] Patient Name: JUAN MANRIQUEZ MR #: [id number] : 1945 Age/Sex: 73/F Req #: [id number] Adm Physician: Ordered by: FRANCHESKA HESTER MD Report #: [id number] Location: CT Room/Bed: Procedure: [id number] CT/C T CHEST WO Exam Date: 05/05/18 Exam Time: 0850 REPORT STATUS: Signed PROCEDURE: CT C HEST WITHOUT CONTRAST CT scan of the chest WITHOUT intravenous contrast, using standard protocol. TECHNIQUE: The chest was scanned utilizing a [facility] Member Desktector helical scanner from the apex to the [...] at 9:47 E lectronically approved by: ELIZABETH GRANT M.D. on 05/05/2018 at 9:47 Dictated By: ELIZABETH GRANT MD 6 Transcribed By: LISS on 05/05/18946 COPY TO: FRANCHESKA HESTER MD CT CHEST [id number] 15:38:00 [place] [address] Patient Name: JUAN MARNIQUEZ MR #: [id number] : 1945 Age/Sex: 72/F Req #: [id number] Adm Physician: Ordered by: LEONA COLINDRES MD Report #: [id number] Location: CT Room/Bed: Procedure: [id number] CT/CT CHEST WO Exam Date: 01/27 Exam Time: 1150 REPORT STATUS: Signed NE OCEDURE: CT CHEST WITHOUT CONTRAST CT scan of the chest WITHOUT intravenous co ntrast, using standard protocol. TECHNIQUE: The chest was scanned uti lizing a multidetector helical scanner from the apex to the level of the adre nal glands. No IV contrast was administered per physician's request. Coronal and sagittal multiplanar reformations were obtained. COMPARISON: [facility], DX, CHEST SINGLE (PORTABLE), 01/09/2016, 21:19. [...]
--- NOTE | 2020-04-22 15:22 | Consultation ---
DATE OF CONSULTATION: 04/22/2020 HISTORY OF PRESENT ILLNESS: A 75-year-old female, well known to our Nephrology Service, underlying history of diabetes, hypertension, diabetic kidney disease, end-stage renal disease, history of thrombocytopenia, and congestive heart failure, who developed chest pains. Has a history of coronary artery disease that was relieved by third tablet of nitroglycerin, finished her dialysis, re-routed here. Currently in the ER, awake, alert, oriented x3, sitting up, in no apparent distress. LABORATORY DATA: Show hemoglobin 12.5 and platelets 36. Potassium 3.6 and creatinine 3.31. Troponin I 0.002 with a BNP of 1251. Had a chest x-ray done. Please see official report, shows bilateral interstitial opacities, likely pulmonary interstitial edema. ALLERGIES: TO PENICILLIN. CURRENT MEDICATIONS: Home medications not reconciled yet. FAMILY HISTORY: Significant for diabetes. PHYSICAL EXAMINATION: GENERAL: Awake, alert, oriented x3, sitting up, in no apparent distress. VITAL SIGNS: Blood pressure 166/85, pulse rate 79, and oxygen saturation 100% on room air. HEAD AND NECK: Cornea clear. Oral mucosa moist. LUNGS: Relatively clear. HEART: S1 and S2 audible. ABDOMEN: Soft and nontender. EXTREMITIES: Lower extremity, no edema. IMPRESSION AND PLAN: Atrial fibrillation. ECG noted. Troponin noted. Discussed with ER physician. The patient to be admitted. Cardiology to be consulted. No acute indications for dialysis. Electrolytes appear stable. Possible angina. Has chronic thrombocytopenia, history of solitary pulmonary nodule, history of prior cholecystectomy, appendectomy, prior bladder suspension, known history of atrial fibrillation, chronic ITP idiopathic thrombocytopenic purpura. Please see orders. MD VERONICA Castellanos/HERBER /[id number]
--- NOTE | 2020-04-22 15:31 | NUR ---
Recvd patient from ER. AAOx3, Denies any CP this time, on Telemetry. call light in reach, keep monitoring
[2020-04-22 15:37] VITALS: BP 158/71
[2020-04-22 16:00] VITALS: BP 158/71
[2020-04-22 20:00] VITALS: BP 158/71
[2020-04-22 20:09] VITALS: BP 134/89
[2020-04-22 20:54] LABS: CREATINE KINASE MB 2.8 ng/mL (0-5.0)
[2020-04-23] VITALS (9 sets, daily range): BP systolic 116–155; BP diastolic 40–99
[2020-04-23 06:16] LABS: BASOPHILS # (AUTO) 0.1 (0.0-0.1); BASOPHILS % 0.9 % (0.0-1.0); EOSINOPHILS # (AUTO) 0.2 (0.0-0.4); EOSINOPHILS % 2.6 % (0.0-6.0); HEMATOCRIT 34.2 % (34.2-44.1); HEMOGLOBIN 11.2 g/dL (12.0-16.0); LYMPHOCYTES # (AUTO) 1.1 (1.0-3.2); LYMPHOCYTES % 17.1 % (18.0-39.1); MEAN CORPUSCULAR HEMOGLOBIN 33.1 pg (28-32); MEAN CORPUSCULAR HGB CONC 32.7 g/dL (31-35); MEAN CORPUSCULAR VOLUME 101.2 fL (81-99); MONOCYTES # (AUTO) 0.4 (0.2-0.8); MONOCYTES % 6.2 % (4.4-11.3); NEUTROPHILS # (AUTO) 4.7 (2.1-6.9); NEUTROPHILS % 72.9 % (38.7-80.0); RED BLOOD COUNT 3.38 x10e6/uL (3.6-5.1); RED CELL DISTRIBUTION WIDTH 15.3 % (11.7-14.4)
[2020-04-23 06:43] LABS: PLATELET COUNT 32 x10e3/uL (140-360)
--- NOTE | 2020-04-23 06:43 | NUR ---
Received call from lab stating platelet coount was 32. Informed Dr. Elizabeth. No new orders at this time. Pt in bed with eyes closed, Denies any complaints at this time. Call light in reach. Bed in locked and low position
[2020-04-23] MEDS ORDERED: METOPROLOL TARTRATE 25 MG TAB PO SCH (06:45)
[2020-04-23 06:48] LABS: ANION GAP 14.1 mmol/L (8-16); CALCIUM 7.9 mg/dL (8.4-10.2); CREATININE, SERUM 5.13 mg/dL (0.57-1.11); POTASSIUM 4.1 mmol/L (3.5-5.1)
--- NOTE | 2020-04-23 06:56 | NUR ---
Received new order per Dr. Elizabeth to hold ASA due to low platelet count.
[2020-04-23 07:29] LABS: CREATINE KINASE MB 1.4 ng/mL (0-5.0)
[2020-04-23] MEDS ORDERED: METOPROLOL TARTRATE 25 MG TAB PO PRN (07:45)
[2020-04-23] MEDS: AMLODIPINE BESYLATE 10 MG TAB PO SCH (08:35)
[2020-04-23] MEDS ORDERED: ASPIRIN 325 MG TAB EC PO SCH (09:00)
[2020-04-23] MEDS ORDERED: CLONIDINE HCL 0.2 MG/24 HR 1 EA PATCH TD SCH (09:00)
[2020-04-23] MEDS ORDERED: ASPIRIN 81 MG CHEW TAB PO SCH (09:00)
--- NOTE | 2020-04-23 09:56 | History and Physical ---
REASON FOR ADMISSION: This is a 75-year-old female, who came in with chest pain. HISTORY OF PRESENTING ILLNESS: Ms. Cony Whiting with history of diabetes mellitus, history of end-stage renal disease, history of hypertension, history of coronary artery disease, was in usual state of health until the patient was in dialysis. During the dialysis, the patient started to have chest pain, described as midsternal chest pain with pressure and relieved with the 3rd nitroglycerin. The patient came in and once the patient was in the ER with a 3rd nitroglycerin, the pain had dissipated. PAST MEDICAL HISTORY: 1. History of end-stage renal disease. 2. History of diabetes mellitus, controlled. 3. History of hypertension. 4. History of hyperlipidemia. 5. History of anemia. MEDICATIONS: See medical reconciliation sheet. She takes amlodipine 5 mg, aspirin 81, clonidine one patch 0.1 mg daily, metoprolol 25 mg b.i.d. p.r.n. SOCIAL HISTORY: No EtOH. No IV drug abuse. No history of smoking. PAST SURGICAL HISTORY: History of bladder suspension and history of recent hip fracture and femur fracture, which the patient did not do any surgical intervention. FAMILY HISTORY: History of extensive diabetes in family, history of extensive coronary artery disease in family, and hypertension in the family. REVIEW OF SYSTEMS: Positive for chest pain. No shortness of breath. No nausea, no vomiting. No diarrhea. No constipation. No rectal bleeding. No hematochezia. No hematemesis. No blurry vision. No diplopia. No hyperesthesias or paresthesias. No weakness. ALLERGIES: THE PATIENT IS ALLERGIC TO PENICILLIN. PHYSICAL EXAMINATION: GENERAL: The patient is alert and oriented x3. HEENT: Normocephalic, atraumatic. Pupils are reactive. CVS: S1 and S2 normal. ABDOMEN: Soft, nontender, nondistended. CHEST: Catheter in place. EXTREMITIES: No clubbing, no cyanosis and/or no edema. LABORATORY VALUES: White count is 6.57, hemoglobin of 12.5, hematocrit 39, and platelet count was 36. Chemistry; show BNP is 1251. BUN of 11, creatinine 3.13 with a CO2 of 31. Serology; Coronavirus is pending. Troponin 1st set was 0.002, 2nd set was 0.002, and 3rd set is pending. IMAGING STUDIES: [facility]acities, more likely end-stage pulmonary edema. ASSESSMENT AND PLAN: Ms. Cony Whiting with: 1. Chest pain, rule out coronary artery disease. 2. Unstable angina. 3. Hypertension. 4. Hyperlipidemia. 5. Diabetes mellitus with end-stage renal disease. 6. Generalized debility. 7. Dialysis status. PLAN: Cardiology consult has been done. Echocardiogram will be ordered. Thyroid panel will be ordered and possible cardiac cath depending on Cardiology evaluation. Further recommendation per clinical course. We will continue monitor the patient. The patient is on IMCU with cardiac monitoring. MD MELVIN Alonzo/MODL /[id number]
--- NOTE | 2020-04-23 15:05 | NUR ---
Called Consult for Dr Brii Osullivan to his office talked to Mrs Valenzuela
--- NOTE | 2020-04-23 15:50 | NUR ---
Called [facility] for Dialysis tomorrow as per the order of Dr Ortez. Spoke with Mrs Santana
--- NOTE | 2020-04-23 19:09 | Consultation ---
DATE OF CONSULTATION: Cardiology Consult HISTORY OF PRESENT ILLNESS: This is a 75-year-old female with past medical history of hypertension, diabetes, atrial fibrillation (not on any EFFIE, only on aspirin), CHF, end-stage renal disease on hemodialysis, low platelet, and anemia, admitted complaining of midsternal chest pain, 6/10 in intensity, radiating to her back, onset during hemodialysis. The patient was given nitroglycerin 3 times and found relief after the third dose. The patient denies any shortness of breath, dizziness, or any palpitations. The patient did have mild nausea, but no vomiting. PAST MEDICAL HISTORY: Hypertension, hyperlipidemia, diabetes, end-stage renal disease on HD, anemia, and low platelet. PAST SURGICAL HISTORY: Cholecystectomy, appendectomy, and left hip fracture. SOCIAL HISTORY: The patient denies any ETOH use nor any illicit drug use. The patient is nonsmoker. FAMILY HISTORY: History of extensive diabetes and CAD and hypertension and colon cancer. REVIEW OF SYSTEMS: A detailed 12-point review of system was performed and was negative except as noted in HPI above. ALLERGIES: THE PATIENT IS ALLERGIC TO PENICILLIN. MEDICATIONS: The patient's home medications includes amlodipine 10 mg daily, clonidine patch once a week p.r.n., aspirin 81 mg daily, and metoprolol 25 mg p.o. daily. PHYSICAL EXAMINATION: VITAL SIGNS: Temperature 97.7, heart rate of 80, respiratory rate of 22, blood pressure 149/86, and pulse oximetry 100. GENERAL: The patient is well developed and well nourished, no acute respiratory distress. SKIN: Normal in appearance, texture, and temperature. Warm and dry. HEENT: The patient's cranium is normocephalic and atraumatic. Pupils are equally round and reactive to light and accommodation. Sclerae nonicteric. Ears are normal. Mucosa is moist. Throat is clear. NECK: Supple. Full range of motion. No cervical lymphadenopathy. No thyromegaly. Carotid artery upstroke is normal bilaterally without bruits. No JVD or hepatojugular reflux. RESPIRATORY: Normal respiratory effort. LUNGS: Diminished to the bases. No wheezing. No rhonchi or rales. CARDIOVASCULAR: S1 and S2 audible. Irregular in rhythm. Atrial fibrillation. No significant murmurs heard. GI: Soft, nontender, and nondistended. Bowel sounds are present. EXTREMITIES: No edema. No clubbing. No cyanosis. Pulses are palpable 1+ throughout. NEUROLOGIC: Motor and sensory examination of the upper and lower extremities are normal. Reflexes are normal and symmetrical bilaterally. LABORATORY DATA: Sodium 138, potassium is 4.1, chloride 99, CO2 29, anion gap 14.1, BUN 26, creatinine is 5.13, and glucose is 114. CK-MB 2.8, 1.40. Troponin 0.022, 0.27. BNP 1251.0. IMAGING: Chest x-ray; impression, bilateral interstitial opacities, likely pulmonary interstitial edema. No evidence of lobar pneumonia. No pleural effusion. Heart mediastinum. Pericardium, mediastinal silhouette is mildly enlarged. There are atherosclerotic calcification within the aorta. ASSESSMENT: 1. Chest pain/unstable angina. 2. Chronic congestive heart failure. 3. Hypertension. 4. Hyperlipidemia. 5. Diabetes mellitus with end-stage renal disease, on hemodialysis. 6. Chronic atrial fibrillation. 7. Thrombocytopenia. Platelet count is 36, 32. PLAN: 1. Monitor vital signs and place on continuous telemetry monitoring. 2. Echocardiogram. 3. Optimize medical therapy for CHF with beta blockers. EFFIE inhibitor to be held given her end-stage renal disease or abnormal kidney function. Continue on CCB or calcium channel marissa, aspirin. Continue hemodialysis per Nephrology. 4. We will arrange for Lexiscan/nuclear stress test in the morning to exclude ischemia. Further recommendation will follow according to the patient's clinical course. Thank you for this consultation. Dictated by Karena Baca NP MD CHAO Robins/HERBER /[id number]
[2020-04-24] VITALS (7 sets, daily range): BP systolic 138–181; BP diastolic 69–98
--- NOTE | 2020-04-24 04:25 | NUR ---
PATIENT COMPLAIN OF NOT FEELING GOOD AND FEELS LIKE HER BLOOD SUGAR IS LOW. BS CHECKED 99MG/DL. PATIENT STATES THIS VALUE IS LOW FOR HER. CURRENTLY ON NPO FOR STRESS TEST TODAY. VITAL SIGNS WITHIN NORMAL. PAGED DR. COLINDRES THRU FINISHING SUPERVISOR. WAITING FOR RESPONSE.
[2020-04-24] MEDS ORDERED: DEXTROSE 50% SYRINGE 50 ML IV ONE ×2 (04:45→04:47)
--- NOTE | 2020-04-24 04:50 | NUR ---
PATIENT COMPLAIN OF BLURRING OF VISION. SPOKE WITH DR. BERNADINE ADAM ORDER RECEIVED FOR 1/2 VIAL D 50.
--- NOTE | 2020-04-24 05:29 | NUR ---
PATIENT COMPLAIN OF CHEST TIGHTNESS 10/26. PAGED DR. Brii CALVILLO. WAITING FOR CALL BACK.
[2020-04-24] MEDS ORDERED: MORPHINE SULFATE 2 MG/ML SYR 1ML IV STA (05:34)
--- NOTE | 2020-04-24 05:35 | NUR ---
NEW ORDER RECEIVED FROM DR. Felicia CALVILLO.
[2020-04-24] MEDS ORDERED: MORPHINE SULFATE 2 MG/ML SYR 1ML ONE (05:55)
--- NOTE | 2020-04-24 07:25 | NUR ---
PATIENT IN BED RESTING WITH NO S/S OF DISTRESS. DIALYSIS CATHETER INTACT TO RIGHT CHEST. BED IN LOWER POSITION, CALL LIGHT AT REACH.
--- NOTE | 2020-04-24 08:47 | Progress Note ---
DATE: SUBJECTIVE: A 75-year-old female who came in with chest pain and currently the patient is still experiencing some chest pain. Had one hypoglycemic event up to 94 and was given half of D50, feeling better now, scheduled for a cardiac stress test today with Dr. Simons. Echocardiogram was done yesterday showed a low ejection fraction. Currently, otherwise patient is asymptomatic except for pain in the area. PHYSICAL EXAMINATION: VITAL SIGNS: Temperature is 98.3, pulse is 75, respirations of 18, blood pressure is 163/86, pulse oximetry of 99%. HEENT: Normocephalic and atraumatic. No icterus present. CVS: S1, S2 normal. Regular rate and rhythm. ABDOMEN: Soft, nontender. EXTREMITIES: No clubbing, no cyanosis, no edema present. LABORATORY STUDIES: White count today was 6.43, hemoglobin of 11.2, and platelet count is still little down at 32. Chemistry shows sodium 138, potassium 4.1, creatinine is 5.13 and GFR of 8. Calcium 7.9. CK, CK-MB, and troponin essentially within normal limit. Coronavirus is not detected. ASSESSMENT: Ms. Cony Whiting with. 1. Acute on chronic congestive heart failure with low EF. 2. Chest pain. Unstable angina. 3. Hypertension. 4. End-stage renal disease. 5. Hyperlipidemia. 6. Chronic atrial fibrillation. 7. Thrombocytopenia. PLAN: The patient will be continued on telemetry. Continue with current medication and we will hold back the aspirin secondary to her thrombocytopenia. Today if she is having a nuclear stress test and if positive, we will need a catheterization. If not, the patient can be discharged home with optimization of medical therapy. Further recommendation per clinical course. We will continue to monitor the patient and discharge today if the Lexiscan is normal. MD MELVIN Alonzo/MODL /[id number]
[2020-04-24] MEDS: AMLODIPINE BESYLATE 10 MG TAB PO SCH (09:00)
--- NOTE | 2020-04-24 09:18 | NUR ---
DAY 2 OBS. PT FOR STRESS TEST THIS AM. HD TO FOLLOW. PLAN DC HOME. SENT TO R1 FOR LOC.
--- NOTE | 2020-04-24 09:40 | NUR ---
REPORT GIVEN TO RECEIVING NURSE. PATIENT REMAINS NPO FOR A PROCEDURE. IN BED WITH CALL LIGHT AT REACH.
[2020-04-24] MEDS ORDERED: REGADENOSON 0.4 MG/5 ML SYR IV ONE (10:43)
--- NOTE | 2020-04-24 11:28 | NUR ---
Dear Client, [facility] case account ending in 2605 has been reviewed and completed by PAS Physicians. Service Line: Level of Care (LOC) / Admission Status Review Initial patient type was submitted as: IO - Initial Observation PAS Recommendation: OU
[2020-04-24] MEDS ORDERED: METOPROLOL TARTRATE 25 MG TAB PO SCH (16:30)
--- NOTE | 2020-04-24 17:31 | NUR ---
HD nurse at bedside.
--- NOTE | 2020-04-24 19:00 | NUR ---
Report given to oncoming nurse of patient's status. HD nurse at bedside. No s/s of acute distress noted side rails upx2, call light within reach.
--- NOTE | 2020-04-24 19:46 | NUR ---
PATIENT IN BED RESTING WITH NO S/S OF DISTRESS. PT IS GETTING DIALYSIS. D/C ORDER TO DISCHARGE PT AFTER DIALYSIS, CALL LIGHT AT REACH
--- NOTE | 2020-04-24 22:42 | NUR ---
PT IS DISCHARGED AFTER DIALYSIS 2L HAS TAKEN PT IS IN STABLE CONDITION PT WAS TAKEN BY THE PCT TO THE CAR
[2020-04-25] MEDS ORDERED: ISOSORBIDE MONONITRATE 30 MG TAB CR PO SCH (09:00)
--- NOTE | 2020-04-25 09:49 | Operative Report ---
DATE OF PROCEDURE: 04/24/2020 SURGEON: Duke Simons MD PROCEDURE: Lexiscan nuclear stress test. INDICATION: Chest pain. TECHNIQUE: The patient was given 11 mCi of Myoview. Resting images were obtained in the horizontal long axis, vertical long axis, and short axis. The patient was then given Lexiscan infusion over 15 seconds. During Lexiscan infusion, the patient had no chest pain and no EKG changes. The patient was then given 33 mCi of Myoview. Stress images were obtained 30 minutes after completion of axis of Lexiscan infusion. Stress images were obtained in the horizontal long axis, vertical long axis, and short axis. RESULTS: 1. The resting EKG demonstrated atrial fibrillation with a marked intraventricular conduction delay. 2. There were no symptoms and no EKG changes during Lexiscan infusion. 3. There was diminished perfusion to the apex and the stress images. 4. There was mild left ventricular enlargement with moderate global left ventricular dysfunction and an ejection fraction of 42%. CONCLUSION: The patient has a reversible defect in the apex concerning for ischemia. The patient has moderate left ventricular dysfunction with an ejection fraction of 42%. Duke Simons MD DS/MODL /[id number] cc: Juancarlos Elizabeth MD
== END 2020-04-24 22:10 | disposition home or self-care (01) ==
LOC: ER 11:55 → ERHOLD 13:25 → MED/SURG3 15:26
PROVIDERS: ADMIT Family Medicine; ATTEND Family Medicine
DX: I48.20 Chronic atrial fibrillation, unspecified (principal); R07.89 Other chest pain; E11.22 Type 2 diabetes mellitus with diabetic chronic kidney disease; N18.6 End stage renal disease; D64.9 Anemia, unspecified; Z88.0 Allergy status to penicillin; I25.110 Atherosclerotic heart disease of native coronary artery with unstable angina pectoris; E78.5 Hyperlipidemia, unspecified; R53.81 Other malaise; D69.3 Immune thrombocytopenic purpura; I13.2 Hypertensive heart and chronic kidney disease with heart failure and with stage 5 chronic kidney disease, or end stage renal disease; I50.9 Heart failure, unspecified; Z82.49 Family history of ischemic heart disease and other diseases of the circulatory system; Z83.3 Family history of diabetes mellitus; Z90.49 Acquired absence of other specified parts of digestive tract; Z99.2 Dependence on renal dialysis; E11.649 Type 2 diabetes mellitus with hypoglycemia without coma; Z11.59 Encounter for screening for other viral diseases
CPT/HCPCS: 36415 ×3; 71045; 78452; 80048; 80053; 82550 ×2; 82553 ×2; 82948 ×3; 83880; 84484 ×2; 85025 ×2; 90935; 93005; 93017; 93306; 99283; A9502; G0378 ×3; J2270; J2785; J7799; U0002; 90962

== ENCOUNTER 2020-08-25 07:20 | Emergency (ER) | payer MEDICARE ==
[~2020-08-25] VITALS: Ht 162.6 cm; Wt 59.0 kg
[2020-08-25] MEDS ORDERED: METFORMIN HCL500 MG PO (07:30)
[2020-08-25] MEDS ORDERED: TETANUS/DIPHTHERIA TOX ADULT 0.5 ML SYR IM ONE (08:30)
[2020-08-25] MEDS ORDERED: TETANUS/DIPHTHERIA TOX ADULT 0.5 ML SYR ONE (08:35)
[2020-08-25] MEDS ORDERED: LEVOFLOXACIN250 MG PO (09:07)
[2020-08-25 09:14] VITALS: BP 142/79
== END 2020-08-25 09:12 | disposition home or self-care (01) ==
LOC: FSED 07:49
DX: S01.111A Laceration without foreign body of right eyelid and periocular area, initial encounter (principal); W06.XXXA Fall from bed, initial encounter; Y93.84 Activity, sleeping; Y92.003 Bedroom of unspecified non-institutional (private) residence as the place of occurrence of the external cause; I12.0 Hypertensive chronic kidney disease with stage 5 chronic kidney disease or end stage renal disease; E11.22 Type 2 diabetes mellitus with diabetic chronic kidney disease; N18.6 End stage renal disease; Z99.2 Dependence on renal dialysis
CPT/HCPCS: 70450; 90471; 90714; 96372; 99283

== ENCOUNTER 2020-12-26 14:53 | Observation (INO) | payer MEDICARE ==
[~2020-12-26] VITALS: Ht 162.6 cm; Wt 59.0 kg
[~2020-12-26 14:53] MED LIST changes: +LEVOFLOXACIN250 MG PO; +METFORMIN HCL500 MG PO
[2020-12-26 15:31] LABS: BASOPHILS # (AUTO) 0.1 (0.0-0.1); BASOPHILS % 0.8 % (0.0-1.0); EOSINOPHILS # (AUTO) 0.2 (0.0-0.4); HEMATOCRIT 39.2 % (34.2-44.1); HEMOGLOBIN 12.4 g/dL (12.0-16.0); LYMPHOCYTES # (AUTO) 1.4 (1.0-3.2); MEAN CORPUSCULAR HEMOGLOBIN 32.4 pg (28-32); MEAN CORPUSCULAR HGB CONC 31.6 g/dL (31-35); MEAN CORPUSCULAR VOLUME 102.3 fL (81-99); MONOCYTES # (AUTO) 0.4 (0.2-0.8); MONOCYTES % 5.5 % (4.4-11.3); NEUTROPHILS # (AUTO) 5.5 (2.1-6.9); NEUTROPHILS % 72.4 % (38.7-80.0); RED BLOOD COUNT 3.83 x10e6/uL (3.6-5.1)
[2020-12-26 15:38] LABS: PLATELET COUNT 45 x10e3/uL (140-360)
[2020-12-26 15:44] LABS: ALBUMIN 4.1 g/dL (3.5-5.0); ANION GAP 20.1 mmol/L (8-16); CALCIUM 8.6 mg/dL (8.4-10.2); CREATININE, SERUM 5.99 mg/dL (0.57-1.11); POTASSIUM 4.1 mmol/L (3.5-5.1)
[2020-12-26] MEDS ORDERED: ASPIRIN 325 MG TAB PO ONE (16:00)
[2020-12-26] MEDS ORDERED: METOPROLOL TART25 MG PO (17:24)
[2020-12-26] MEDS ORDERED: GLIPIZIDE5 MG PO (17:24)
[2020-12-26] MEDS ORDERED: NITROGLYCERIN0.4 MG SL (17:24)
[2020-12-26] MEDS ORDERED: HYDRALAZINE HCL50 MG PO (17:24)
[2020-12-26 17:44] VITALS: BP 154/86
[2020-12-26 17:51] VITALS: BP 154/86
[2020-12-26] MEDS ORDERED: SODIUM CHLORIDE 0.9% 50ML 0 ML ONE (17:55)
[2020-12-26] MEDS ORDERED: IOPAMIDOL 370 MG/ML 200 ML INFUS..BTL INJ ONE (17:55)
[2020-12-26] MEDS ORDERED: SODIUM CHLORIDE 0.9% 100 ML ONE (18:00)
[2020-12-26 20:00] VITALS: BP 146/62
[2020-12-26 21:00] VITALS: BP 146/62
[2020-12-26 23:00] LABS: CREATINE KINASE MB 1.3 ng/mL (0-5.0)
[2020-12-27] VITALS: BP 147/93
[2020-12-27 04:00] VITALS: BP 137/62
[2020-12-27 04:42] LABS: BASOPHILS # (AUTO) 0.1 (0.0-0.1); BASOPHILS % 0.7 % (0.0-1.0); EOSINOPHILS # (AUTO) 0.3 (0.0-0.4); EOSINOPHILS % 3.7 % (0.0-6.0); HEMATOCRIT 34.4 % (34.2-44.1); LYMPHOCYTES # (AUTO) 1.3 (1.0-3.2); LYMPHOCYTES % 18.3 % (18.0-39.1); MEAN CORPUSCULAR HEMOGLOBIN 32.1 pg (28-32); MEAN CORPUSCULAR VOLUME 100.3 fL (81-99); MONOCYTES # (AUTO) 0.4 (0.2-0.8); NEUTROPHILS # (AUTO) 5.2 (2.1-6.9); NEUTROPHILS % 71.2 % (38.7-80.0); RED BLOOD COUNT 3.43 x10e6/uL (3.6-5.1); RED CELL DISTRIBUTION WIDTH 14.6 % (11.7-14.4)
[2020-12-27 04:44] LABS: PLATELET COUNT 42 x10e3/uL (140-360)
[2020-12-27 04:59] LABS: ANION GAP 16.5 mmol/L (8-16); CALCIUM 7.8 mg/dL (8.4-10.2); CREATININE, SERUM 6.82 mg/dL (0.57-1.11); POTASSIUM 4.5 mmol/L (3.5-5.1)
[2020-12-27 07:34] VITALS: BP 129/69
[2020-12-27 07:42] VITALS: BP 129/69
[2020-12-27] MEDS ORDERED: DEXTROSE 40% GEL 31 GM TUBE PO ONE (08:45)
[2020-12-27] MEDS: HYDRALAZINE HCL 100 MG TABLET PO SCH ×2 (09:00→16:19)
[2020-12-27] MEDS ORDERED: ASPIRIN 81 MG CHEW TAB PO SCH (09:00)
[2020-12-27] MEDS: METOPROLOL TARTRATE 25 MG TAB PO SCH ×2 (09:00→16:19)
[2020-12-27] MEDS ORDERED: AMLODIPINE BESYLATE 10 MG TAB PO SCH (09:00)
[2020-12-27] MEDS ORDERED: REGADENOSON 0.4 MG/5 ML SYR IV ONE (09:30)
[2020-12-27] MEDS: SEVELAMER CARBONATE 800 MG TAB PO SCH ×3 (12:00→16:23)
[2020-12-27] MEDS ORDERED: SODIUM CHLORIDE 0.9% 1000ML 1,000 ML ONE (12:44)
[2020-12-27 14:01] VITALS: BP 140/72
[2020-12-27 15:15] VITALS: BP 150/122
== END 2020-12-27 19:16 | disposition home or self-care (01) ==
LOC: ER 15:00 → ERHOLD 16:40 → MED/SURG 16:55
PROVIDERS: ADMIT Family Medicine; ATTEND Family Medicine
DX: E11.22 Type 2 diabetes mellitus with diabetic chronic kidney disease (principal); N18.6 End stage renal disease; Z99.2 Dependence on renal dialysis; D69.59 Other secondary thrombocytopenia; E78.5 Hyperlipidemia, unspecified; I25.10 Atherosclerotic heart disease of native coronary artery without angina pectoris; Z20.822 Contact with and (suspected) exposure to COVID-19; I48.20 Chronic atrial fibrillation, unspecified; Z79.01 Long term (current) use of anticoagulants; I13.2 Hypertensive heart and chronic kidney disease with heart failure and with stage 5 chronic kidney disease, or end stage renal disease; I50.9 Heart failure, unspecified; N25.81 Secondary hyperparathyroidism of renal origin
CPT/HCPCS: 36415 ×2; 71045; 71260; 78452; 80048; 80053; 82550 ×2; 82553 ×2; 82948 ×2; 83880; 84484 ×2; 85025 ×2; 85379; 93005; 93017; 93306; 99251; 99284; A9502; G0378 ×2; J2785; J7030; J7050; Q9967; U0002

== ENCOUNTER 2024-02-04 22:00 | Emergency (ER) | payer MEDICARE ==
[~2024-02-04] VITALS: Ht 144.8 cm; Wt 45.4 kg
[~2024-02-04 22:00] MED LIST changes: +BENZONATATE100 MG PO; +BENZONATATE150 MG; +DOXYCYCLINE HY100 MG PO; +GLIPIZIDE5 MG PO; +HYDRALAZINE HCL50 MG PO; +NITROGLYCERIN0.4 MG SL; +ONDANSETRON ODT4 MG PO
[2024-02-04] MEDS: ACETAMINOPHEN 325 MG TAB PO ONE (22:52)
[2024-02-04] MEDS ORDERED: ACETAMINOPHEN 325 MG TAB PO ONE (23:00)
[2024-02-05] MEDS: HYDROCODONE/APAP 5MG-325MG TAB PO ONE (01:19)
[2024-02-05 02:01] LABS: ALBUMIN 2.6 g/dL (3.5-5.0); ALBUMIN/GLOBULIN RATIO 0.7 (0.8-2.0); ANION GAP 14.6 mmol/L (8-16); BILIRUBIN,TOTAL 1.1 mg/dL (0.2-1.2); CALCIUM 7.6 mg/dL (8.4-10.2); POTASSIUM 3.6 mmol/L (3.5-5.1); TOTAL PROTEIN 6.4 g/dL (6.5-8.1)
[2024-02-05 02:04] LABS: BASOPHILS # (AUTO) 0.1 (0.0-0.1); BASOPHILS % 0.7 % (0.0-1.0); EOSINOPHILS # (AUTO) 0.2 (0.0-0.4); EOSINOPHILS % 2.2 % (0.0-6.0); LYMPHOCYTES # (AUTO) 0.4 (1.0-3.2); LYMPHOCYTES % 6.1 % (18.0-39.1); MEAN CORPUSCULAR HEMOGLOBIN 33.6 pg (28-32); MEAN CORPUSCULAR HGB CONC 32.1 g/dL (31-35); MEAN CORPUSCULAR VOLUME 104.5 fL (81-99); MONOCYTES # (AUTO) 0.3 (0.2-0.8); MONOCYTES % 4.4 % (4.4-11.3); NEUTROPHILS # (AUTO) 5.9 (2.1-6.9); NEUTROPHILS % 86.3 % (38.7-80.0); RED BLOOD COUNT 2.68 x10e6/uL (3.6-5.1); RED CELL DISTRIBUTION WIDTH 15.9 % (11.7-14.4); WHITE BLOOD COUNT 6.85 x10e3/uL (4.8-10.8)
[2024-02-05 02:08] LABS: INR 1.14; PROTHROMBIN TIME 15.4 seconds (11.9-14.5)
[2024-02-05 02:09] LABS: PARTIAL THROMBOPLASTIN TIME 37.4 seconds (23.8-35.5); PLATELET COUNT 26 x10e3/uL (140-360)
[2024-02-05 02:32] VITALS: TEMP 99.1
[2024-02-05 02:56] VITALS: PULSE 83; RESP 24; O2SAT 98
[2024-02-05 13:14] LABS: BAND NEUTROPHILS % (MANUAL) 2 %; BASOPHILS % (MANUAL) 1 % (0-1.5); EOSINOPHILS % (MANUAL) 4 % (0-7); LYMPHOCYTES % (MANUAL) 5 % (19-48); MONOCYTES % (MANUAL) 4 % (3.4-9.0); NEUTROPHILS % (MANUAL) 84 % (40-74); PLATELET ESTIMATE MARKEDLY DECREASED; PLATELET MORPHOLOGY COMMENT NORMAL; RBC MORPHOLOGY COMMENT NORMAL
== END 2024-02-05 03:07 | disposition other institution (70) ==
LOC: FSED 22:08
DX: S72.112A Displaced fracture of greater trochanter of left femur, initial encounter for closed fracture (principal); J44.9 Chronic obstructive pulmonary disease, unspecified; I50.9 Heart failure, unspecified; I48.91 Unspecified atrial fibrillation; I12.0 Hypertensive chronic kidney disease with stage 5 chronic kidney disease or end stage renal disease; E11.22 Type 2 diabetes mellitus with diabetic chronic kidney disease; E11.65 Type 2 diabetes mellitus with hyperglycemia; N18.6 End stage renal disease; Z99.2 Dependence on renal dialysis; K57.30 Diverticulosis of large intestine without perforation or abscess without bleeding; R18.8 Other ascites; I70.90 Unspecified atherosclerosis; Z11.52 Encounter for screening for COVID-19
CPT/HCPCS: 0223U; 36415; 70450; 72192; 80053 ×2; 85025 ×2; 85610 ×2; 85730; 94760; 99284